=== PATIENT | male | born 1935 | race Caucasian/White ===

== ENCOUNTER → 2022-08-06 11:31 | Outpatient (CLI) | payer OTHER, SELFPAY ==
--- NOTE | ~2022-08-06 | MR_ITS ---
EXAMINATION: MR brain/brain stem wo/w con DATE: 08/06/2022 12:15 INDICATION: Seizures and cognitive and memory deficits. SLUMS score of 12. TECHNIQUE: Magnetic resonance imaging (MRI) of the brain and brainstem was performed without and with 17 mL Multihance intravenous contrast. Sequences included sagittal and axial T1-weighted SE, axial d iffusion-weighted FS SE, axial T2*-weighted GRE, axial T2-weighted FLAIR, and axial T2-weighted FSE. Postcontrast axial and coronal T1-weighted SE was obtained. Apparent diffusion coefficient (ADC) maps were created. COMPARISON: None. FINDINGS: There are no areas of restricted diffusion to suggest acute infarction. No intracranial hemorrhage or abnormal intracranial mass lesion. There are scattered areas of nonspecific increased T2-weighted si gnal intensity in the cerebral white matter, predominantly involving the deep and periventricular whi te matter. Symmetric prominence of the sulci, ventricles and basal cisterns with disproportionate alba tricular enlargement which could be related to moderate central predominant atrophy although differen tial would include garcia normal pressure hydrocephalus (NPH: clinical triad ataxia/gait disturbance, dementia, urinary incontinence). There are no abnormal extra-axial fluid collections. Flow voids are seen in the cerebral arteries on the T2-weighted sequences consistent with their expected patency. Ch anges of bilateral intraocular lens replacement. Mucosal thickening in the right maxillary and bilate ral ethmoid and frontal sinuses. There are no areas of abnormal enhancement on the post contrast imag es. IMPRESSION: 1. Enlargement of the sulci, subarachnoid spaces and disproportionately of the ventricles which could be related to either central predominant atrophy or normal pressure hydrocephalus. Correlate clinica lly for triad of ataxia/gait disturbance, dementia and urinary incontinence. 2. Moderate periventricular predominant mild scattered white matter T2 hyperintensity nonspecific mos t likely related to chronic small vessel ischemic disease. Reviewed, dictated and finalized at location A. IMPRESSION: 1. Enlargement of the sulci, subarachnoid spaces and disproportionately of the ventricles which could be related to either central predominant atrophy or norm al pressure hydrocephalus. Correlate clinically for triad of ataxia/gait distur bance, dementia and urinary incontinence. 2. Moderate periventricular predominant mild scattered white matter T2 hyperint ensity nonspecific most likely related to chronic small vessel ischemic disease .
== END ==
PROVIDERS: PCP Family Medicine; Visit Provider Family Medicine
DX: R56.9 Unspecified convulsions (principal); R93.0 Abnormal findings on diagnostic imaging of skull and head, not elsewhere classified
CPT/HCPCS: 70553; A9577

== ENCOUNTER 2023-03-27 08:17 | Inpatient (IN) | payer OTHER, SELFPAY ==
[2023-03-27] VITALS (10 sets, daily range): BP systolic 99–119; BP diastolic 58–95; PULSE 87–131; RESP 16–20; TEMP 36.8–38; O2SAT 94–99
--- NOTE | ~2023-03-27 | XR_ITS ---
EXAMINATION: XR chest 2V DATE: 03/27/2023 09:02 INDICATION: Weakness TECHNIQUE: AP and lateral views of the chest are obtained. COMPARISON: None available FINDINGS: There are minimal airspace opacities of the lung bases and left midlung zone. There are sma ll pleural effusions. No pneumothorax is identified. Cardiomegaly is noted. There are bridging osteop hytes at multiple levels in the spine, consistent with diffuse idiopathic skeletal hyperostosis (DISH ). There is moderate lumbar spondylosis. IMPRESSION: 1. Airspace opacities of the lung bases and left midlung zone, consistent with atelectasis versus pne umonia versus pulmonary edema. Reviewed, dictated and finalized at location B. IC TEACHER IMPRESSION: 1. Airspace opacities of the lung bases and left midlung zone, consistent with atelectasis versus pneumonia versus pulmonary edema.
--- NOTE | ~2023-03-27 | XR_ITS ---
Portable chest x-ray Comparison: 03/27/2023 Clinical History: Hemoptysis Findings: There are small bilateral pleural effusions, right greater than left, with worsening hazy bibasilar airspace disease. Cardiomediastinal silhouette is stable. Bones and soft tissues are unrem arkable. Impression: Moderate bibasilar pulmonary edema with small bilateral pleural effusions, right greater than left. C orrelate clinically for infection or pulmonary hemorrhage. Reviewed, dictated and finalized at location . HOT SUPERINTENDENT Impression: Moderate bibasilar pulmonary edema with small bilateral pleural effusions, righ t greater than left. Correlate clinically for infection or pulmonary hemorrhage .
--- NOTE | ~2023-03-27 | CT_ITS ---
EXAMINATION: CT brain wo con DATE: 03/27/2023 21:46 INDICATION: Altered mental status. TECHNIQUE: Computed tomography (CT) of the head was performed without intravenous contrast. The mA wa s adjusted according to patient size. Iterative reconstruction technique was employed. The dose-lengt h product was 681.00 mGy-cm. COMPARISON: Brain MRI 08/06/2022 FINDINGS: The ventricles are enlarged out of proportion to the size of the sulci. There are scattered areas of nonspecific increased T2-weighted signal intensity in the cerebral white matter. There is n o intracranial hemorrhage, acute infarction, or abnormal intracranial mass lesion. There are likely c hanges of ocular lens replacement surgeries. There is mucosal thickening in the paranasal sinuses. Th e mastoid air cells are normal. IMPRESSION: 1. Chronic enlargement of the ventricles. Correlate clinically for normal pressure hydrocephalus. 2. Stable moderate nonspecific cerebral white matter disease, which likely represents chronic small v essel ischemic disease. Reviewed, dictated and finalized at location E. OR SERVICE AIDE IMPRESSION: 1. Chronic enlargement of the ventricles. Correlate clinically for normal press ure hydrocephalus. 2. Stable moderate nonspecific cerebral white matter disease, which likely repr esents chronic small vessel ischemic disease.
[2023-03-27] MEDS: SODIUM CHLORIDE 0.9% IV 1,000 ML 999 ML IV CONT (08:45)
[2023-03-27 09:23] LABS: Basophils Percent Auto 0.5 % (0.2-1.2); Eosinophils Percent Auto 0.3 % (0-4.4); Hematocrit 40.3 % (42.0-52.0); Hemoglobin 12.9 g/dL (14.0-18.0); Immature Granulocyte Absolute 0.03 K/mm3 (0.00-0.031); Immature Granulocyte Percent A 0.3 % (0-0.5); Lymphocytes Absolute Auto 0.47 K/mm3 (0.9-3.2); Lymphocytes Percent Auto 5.4 % (18.3-44.2); Mean Corpuscular Hemoglobin 32.2 pg (26-34); Mean Corpuscular Volume 100.5 fl (80-100); Mean Platelet Volume 11.2 fl (7.4-10.4); Monocytes Absolute Auto 0.8 K/mm3 (0.1-0.6); Monocytes Percent Auto 9.1 % (2.6-8.5); Neutrophils Absolute Auto 7.4 K/mm3 (1.3-6.7); Neutrophils Percent Auto 84.4 % (45.5-73.1); Platelet Count Result 151 k/mm3 (150-375); Red Blood Count 4.01 M/mm3 (4.6-6.20); Red Cell Distribution Width 12.4 % (11.5-14.5); White Blood Count 8.8 K/mm3 (4.5-10.0)
[2023-03-27 09:32] LABS: Alanine Aminotransferase 20 U/L (6-50); Albumin Level 3.8 g/dL (3.5-5.1); Alkaline Phosphatase 66 U/L (38-126); Anion Gap 7 mmol/L (8-16); Aspartate Amino Transferase 23 U/L (17-59); Bilirubin,Total 1.2 mg/dL (0.2-1.3); Blood Urea Nitrogen 16 mg/dL (9-20); Calcium 8.3 mg/dL (8.4-10.2); Carbon Dioxide 22 mmol/L (22-30); Chloride 106 mmol/L (98-107); Estimated CRCL calculation 54 ml/min; Estimated Glomerular Filt Rate > 60; Glucose 96 mg/dL (65-110); Lipase 390 U/L (23-300); Potassium 3.3 mmol/L (3.4-5.0); Sodium 135 mmol/L (137-145)
[2023-03-27 09:59] LABS: Influenza A QL RT-PCR Negative (Negative); Influenza B QL RT-PCR Negative (Negative); SARS-CoV-2 RNA PCR Positive (Negative)
--- NOTE | 2023-03-27 10:05 | ECG_ITS ---
Measurements Intervals [employer] Rate: 94 P: CT: 0 QRS: 29 QRSD: 91 T: 1 QT: 323 QTc: 405 Interpretive Statements ATRIAL FIBRILLATION INCOMPLETE RIGHT BUNDLE BRANCH BLOCK BORDERLINE T WAVE ABNORMALITY- INFERIOR LEADS ABNORMAL ECG NO PREVIOUS ECG AVAILABLE FOR COMPARISON Electronically Signed On 03-27-2023 10:34:27 HOUSING MANAGEMENT REPRESENTATIVE by Igor Casillas D.O.
--- NOTE | 2023-03-27 11:07 | ED.GENADULT ---
HPI - General Adult General Chief complaint: Weakness Stated complaint: weak Time Seen by Provider: 03/27/23 08:37 History of Present Illness HPI narrative: Patient is an 87-year-old male who presents ER with weakness. Patient woke up from sleep today and was unable to stand up and move. Patient unable to provide history due to his dementia but reports he is in no pain. Patient has a low-grade temperature while he is here. No reports of foul-smelling urine or new cough or dyspnea from family. No known sick contacts. Related Data Home Medications Medication Instructions Recorded Confirmed alprazolam 0.25 mg tablet 0.25 mg PO TID PRN Anxiety 03/27/23 03/27/23 apixaban 5 mg tablet (Eliquis) 5 mg PO BID 03/27/23 03/27/23 atorvastatin 40 mg tablet 40 mg PO HS 03/27/23 03/27/23 donepezil 10 mg tablet 10 mg PO HS 03/27/23 03/27/23 folic acid 800 mcg tablet 0.8 mg PO DAILY 03/27/23 03/27/23 levetiracetam 500 mg tablet 500 mg PO BID 03/27/23 03/27/23 levothyroxine 100 mcg tablet 100 mcg PO DAILY 03/27/23 03/27/23 metoprolol succinate 25 mg 12.5 mg PO DAILY 03/27/23 03/27/23 tablet,extended release 24 hr vitamin B complex (B 1 tablet PO DAILY 03/27/23 03/27/23 Complex-Vitamin B12 tablet) Allergies Allergy/AdvReac Type Severity Reaction Status Date / Time No Known Allergies Allergy Verified 03/27/23 08:31 Review of Systems Review of Systems: ROS unobtainable: Yes unobtainable due to mental status [facility] Past Medical History Medical History (Updated 03/27/23 @ 17:49 by Jean-Pierre Hassan MD) A-fib Dementia Hypercholesterolemia Hypothyroidism Family History Family History (Updated 03/27/23 @ 14:42 by Jessie Braun RN) Other Unknown family medical history Social History Social History Smoking packs per day: 1 Smoking cigarettes per day: 20.0 Years smoked: 23 Smoking pack-years: 23.00 Smoking status: Former smoker Tobacco type: cigarettes Alcohol intake: current Drinks per week: 5 Substance use: never Other substance usage details: small glass of wine with sprite daily Spiritual care concerns: No Exam Narrative: GENERAL: Well-appearing, well-nourished, and in no acute distress. HEAD: Normocephalic, atraumatic. ENT: Mucous membranes moist. NECK: Supple. CHEST: Clear to auscultation. No respiratory distress. HEART: Regular rate and rhythm. Normal peripheral pulses. ABDOMEN: Soft, nontender, nondistended. EXTREMITIES: Normal range of motion. No edema. SKIN: Warm, dry, no rash. NEURO: Alert and oriented x2. PSYCH: Normal mood and affect. Course Course Emergency Course: Patient resting comfortably. Admit for observation since patient cannot get up and ambulate. Simms to be deconditioned due to his illness. Family educated. Excepted by the hospitalist service. Vital Signs Vital signs: Vital Signs Temperature 99.2 F 03/27/23 08:26 Pulse Rate 122 H 03/27/23 08:26 Respiratory Rate 20 03/27/23 08:26 Blood Pressure 99/63 L 03/27/23 08:26 Pulse Oximetry 94 03/27/23 08:26 Oxygen Delivery Room Air 03/27/23 08:26 Temperature 98.2 F 03/27/23 13:51 Pulse Rate 99 03/27/23 13:51 Respiratory Rate 20 03/27/23 13:51 Blood Pressure 119/72 03/27/23 13:51 Pulse Oximetry 97 03/27/23 13:51 Oxygen Delivery Room Air 03/27/23 13:50 Medical Decision Making Vital Signs Vital Signs: Vital Signs Temperature 99.2 F 03/27/23 08:26 Pulse Rate 122 H 03/27/23 08:26 Respiratory Rate 20 03/27/23 08:26 Blood Pressure 99/63 L 03/27/23 08:26 Pulse Oximetry 94 03/27/23 08:26 Oxygen Delivery Room Air 03/27/23 08:26 Temperature 98.2 F 03/27/23 13:51 Pulse Rate 99 03/27/23 13:51 Respiratory Rate 20 03/27/23 13:51 Blood Pressure 119/72 03/27/23 13:51 Pulse Oximetry 97 03/27/23 13:51 Oxygen Delivery Room Air 03/27/23 13:50 Lab Data 03/27/23 09:02 03/27/23 09:02
[2023-03-27 11:15] LABS: Appearance Urine Clear (Clear); Bilirubin Urine Negative (Negative); Blood Urine Negative (Negative); Color Urine Yellow (Yellow); Glucose Urine UA Negative (Negative); Ketones Urine Negative (Negative); Leukocyte Esterase Ur Negative LEU/UL (Negative); Nitrate Urine Negative (Negative); Protein Urine Negative (Negative); Specific Grav Ur 1.024 (1.001-1.035); pH Urine 6.5 (5.0-9.0)
[2023-03-27 11:18] LABS: Add Urine Microscopic? NO
[2023-03-27 11:57] LABS: NT Pro B Type Natriuretic Pept 3390 pg/mL (19.9-100)
--- NOTE | 2023-03-27 13:52 | ADMGEN ---
This patient, Jamaal Henley, was admitted to Medical Room 257-. Patient/family oriented to hospital policies and general routines including ID bracelet, bed and alarms, visiting hours, pain management, procedures, bathroom and other care routines, personal items, smoking policy, room service/diet, and visiting hours. Information on how to activate the Rapid Response Team has been discussed. Patient/Family are encouraged to report perceived risks to care and to ask questions if they do not understand what they are told or what they should do.
--- NOTE | 2023-03-27 15:56 | PM.IMHP ---
H&P: HPI History of Present Illness Date/Time: 03/27/23 15:56 Chief Complaint: Increased AMS and Generalized Weakness Narrative: 87 y/o M presents here with increased AMS, generalized weakness and +COVID test on (03/27) with PMH of dementia, hypothyroidism, HLD, former smoker, and anxiety. HPI obtained through ED provider report, family report, and chart review. Limited history from patient due to increased altered mental status. Per family, they noted a change in patient starting on Saturday. Having increased altered mental status and generalized weakness. Sought care today due to patient's new inability to stand, deviation from baseline. Patient has dementia at baseline and can participate in some activities. He lives at home with his who is his primary global professional. Normally alert and orientated to self and knows those around him, main memory difficulty is remembering to complete tasks/where things are/places of things like the bathroom. He is currently A/Ox0. ED workup revealed patient to be COVID positive with abnormalities seen on chest x-ray. Patient's only complaint is increased fatigue/feeling tired. Able to denied nausea, body aches, diarrhea, abdominal pain. Dry cough observed. Review of Systems Review of Systems: Limited due to patient condition, no family at bedside. All systems reviewed & are unremarkable except as noted in HPI and below PMFSH Past Medical History Medical History (Updated 03/27/23 @ 20:05 by Jessica Barriga APRN) A-fib Anxiety Dementia Hypercholesterolemia Hypothyroidism Surgical History Surgical History (Updated 03/27/23 @ 20:11 by Jessica Barriga APRN) No history of previous surgery Family History Family History (Updated 03/27/23 @ 20:11 by Jessica Barriga APRN) Other Heart disease Social History Social History Social History: Currently lives at home with his who is his primary global professional. Surrogate decision maker: Nighat Henley, spouse. Code Status: DNR Smoking packs per day: 1 Smoking cigarettes per day: 20.0 Years smoked: 23 Smoking pack-years: 23.00 Smoking status: Former smoker Tobacco type: cigarettes Alcohol intake: current Drinks per week: 5 Substance use: never Other substance usage details: small glass of wine with sprite daily Spiritual care concerns: No Meds Home Medications and Allergies Home Medications Medication Instructions Recorded Confirmed Type alprazolam 0.25 mg tablet 0.25 mg PO TID PRN Anxiety 03/27/23 03/27/23 History apixaban 5 mg tablet (Eliquis) 5 mg PO BID 03/27/23 03/27/23 History atorvastatin 40 mg tablet 40 mg PO HS 03/27/23 03/27/23 History donepezil 10 mg tablet 10 mg PO HS 03/27/23 03/27/23 History folic acid 800 mcg tablet 0.8 mg PO DAILY 03/27/23 03/27/23 History levetiracetam 500 mg tablet 500 mg PO BID 03/27/23 03/27/23 History levothyroxine 100 mcg tablet 100 mcg PO DAILY 03/27/23 03/27/23 History metoprolol succinate 25 mg 12.5 mg PO DAILY 03/27/23 03/27/23 History tablet,extended release 24 hr vitamin B complex (B 1 tablet PO DAILY 03/27/23 03/27/23 History Complex-Vitamin B12 tablet) Allergies Allergy/AdvReac Type Severity Reaction Status Date / Time No Known Allergies Allergy Verified 03/27/23 08:31 Vital Signs Vital Signs - 24 hr 03/27/23 08:26 03/27/23 08:30 03/27/23 11:28 Temperature 99.2 F Pulse Rate 122 H 131 H 119 H Respiratory Rate 20 16 Blood Pressure 99/63 L 109/95 H Pulse Oximetry 94 99 Oxygen Delivery Room Air 03/27/23 13:50 03/27/23 13:51 Temperature 98.2 F Pulse Rate 99 Respiratory Rate 20 Blood Pressure 119/72 Pulse Oximetry 97 Oxygen Delivery Room Air Exam Narrative: Resting in hospital bed, no visitors at bedside. Const: General: no acute distress and uncomfortable HENMT: Mouth: Yes dry mucous membranes Eyes: General: ap
[2023-03-27] MEDS: levETIRAcetam 500 MG TABLET PO (17:32)
[2023-03-27] MEDS: APIXABAN 5 MG TABLET PO (17:32)
[2023-03-27] MEDS: REMDESIVIR 200 MG/NS 250 ML 200 MG/250 ML BAG 250 MG IVPB (17:33)
[2023-03-27] MEDS: METOPROLOL TARTRATE INJ 5 MG/5 ML VIAL IV PUSH (18:12)
[2023-03-27 18:37] LABS: Alanine Aminotransferase 21 U/L (6-50); Aspartate Amino Transferase 27 U/L (17-59)
[2023-03-27 19:06] LABS: Thyroid Stimulating Hormone Reflex 0.139 uIU/mL (0.465-4.68)
[2023-03-27 19:44] LABS: Free T4 Free Thyroxine Reflex 2.19 ng/dL (0.78-2.19)
[2023-03-27] MEDS: ATORVASTATIN 40 MG TABLET PO (19:53)
[2023-03-27] MEDS: ALPRAZolam (*CRX) 0.25 MG TABLET PO (19:53)
[2023-03-27] MEDS: DONEPEZIL HCL 10 MG TABLET PO (19:53)
[2023-03-27] MEDS: ACETAMINOPHEN 325 MG TABLET 650 MG PO (19:53)
[2023-03-27 20:53] LABS: Total Triiodothyronine (T3) 0.99 NG/ML (0.97-1.69)
[2023-03-27] MEDS: POTASSIUM CHLORIDE INJ 40 MEQ in SODIUM CHLORIDE 0.9% IV 500 ML 130 MEQ IVPB (21:47)
[2023-03-28] VITALS (13 sets, daily range): BP systolic 114–172; BP diastolic 69–82; PULSE 74–130; RESP 16–20; TEMP 36.6–36.9; O2SAT 92–95
--- NOTE | 2023-03-28 | ECHO_ITS ---
Patient Info Name: Jamaal Henley Age: 87 years : 1935 Gender: Male Ht: 70 in Wt: 230 lbs BSA: 2.30 m2 HR: 85 bpm BP: 105 / 58 mmHg Heart Rhythm: Sinus Rhythm Technical Quality: Poor Exam Date: 03/28/2023 2:31 PM Exam Location: Echo Lab Patient Status: Inpatient Admit Date: 03/27/2023 Staff Ordering Physician: Jessica Barriga APRN Barrel Drum Cutter: Omayra Roger RDCS Attending Provider: Zion Glynn MD Referring Physician: Linus SANCHEZ; Exam Type: CA echo dop color flow w con Study Info Indications - elevated bnp Complete two-dimensional, color flow and Doppler transthoracic echocardiogram is performed. Reason for Poor Study: poor echocardiographic windows Summary 1. Technically difficult study with limited views. 2. Left ventricular chamber dimension is normal. 3. Left ventricular systolic function is mildly reduced, estimated at 45-50%. 4. Right ventricular systolic function is normal. 5. Left atrial chamber dimension is mildly enlarged. 6. Right atrial chamber dimension is mildly enlarged. 7. There is trace mitral valve regurgitation. 8. There is trace tricuspid valve regurgitation. 9. There is trivial anterior pericardial effusion. Left Ventricle Left ventricular chamber dimension is normal. Left ventricular systolic function is mildly reduced, estimated at 45-50%. There is no increased left ventricular wall thickness. Right Ventricle Right ventricular chamber dimension is normal. Right ventricular systolic function is normal. Left Atria Left atrial chamber dimension is mildly enlarged. Right Atria Right atrial chamber dimension is mildly enlarged. Atrial Septum Intact interatrial septum visualized by color flow imaging. Aortic Valve The aortic valve is not well visualized. There is no aortic valve stenosis. There is no aortic valve regurgitation. Pulmonic Valve The pulmonic valve is not well visualized. Mitral Valve There is trace mitral valve regurgitation. Tricuspid Valve There is trace tricuspid valve regurgitation. Pericardium/Pleural The pericardium appears epicardial fat pad. There is trivial anterior pericardial effusion. Inferior Vena Cava Dilated inferior vena cava with <50% collapse upon inspiration consistent with elevated right atrial pressure, 15 mmHg. Aorta The aortic root size at the sinus of Valsalva is normal. Left Ventricular Outflow Tract Name Value Normal LVOT 2D LVOT Diameter 1.97 cm LVOT Doppler LVOT Peak Gradient 2 mmHg LVOT Mean Gradient 1 mmHg LVOT VTI 16.66 cm LVOT VTI/AV VTI Ratio 0.83 LVOT Stroke Volume 50.86 ml LVOT CO 3.15 l/min LVOT CI 1.37 L/min/m2 Pulmonic Valve Name Value Normal RVOT Doppler RVOT Peak Gradient 1 mmHg P
[2023-03-28 05:15] LABS: Basophils Percent Auto 0.4 % (0.2-1.2); Hematocrit 41.7 % (42.0-52.0); Hemoglobin 13.4 g/dL (14.0-18.0); Immature Granulocyte Absolute 0.02 K/mm3 (0.00-0.031); Immature Granulocyte Percent A 0.3 % (0-0.5); Immature Platelet Fraction Pct 7.4 % (0.9-11.2); Lymphocytes Absolute Auto 0.98 K/mm3 (0.9-3.2); Lymphocytes Percent Auto 14.4 % (18.3-44.2); Mean Corpuscular HGB Conc 32.1 g/dl (32-36); Mean Corpuscular Hemoglobin 32.6 pg (26-34); Mean Corpuscular Volume 101.5 fl (80-100); Mean Platelet Volume 11.4 fl (7.4-10.4); Monocytes Absolute Auto 0.9 K/mm3 (0.1-0.6); Monocytes Percent Auto 12.8 % (2.6-8.5); Neutrophils Absolute Auto 4.9 K/mm3 (1.3-6.7); Neutrophils Percent Auto 72.1 % (45.5-73.1); Platelet Count Result 133 k/mm3 (150-375); Red Blood Count 4.11 M/mm3 (4.6-6.20); Red Cell Distribution Width 12.7 % (11.5-14.5); White Blood Count 6.8 K/mm3 (4.5-10.0)
[2023-03-28 05:19] LABS: Alanine Aminotransferase 21 U/L (6-50); Albumin Level 3.7 g/dL (3.5-5.1); Alkaline Phosphatase 63 U/L (38-126); Anion Gap 10 mmol/L (8-16); Aspartate Amino Transferase 35 U/L (17-59); Blood Urea Nitrogen 20 mg/dL (9-20); Calcium 8.2 mg/dL (8.4-10.2); Carbon Dioxide 23 mmol/L (22-30); Chloride 103 mmol/L (98-107); Estimated CRCL calculation 45 ml/min; Estimated Glomerular Filt Rate > 60; Glucose 89 mg/dL (65-110); Potassium 3.7 mmol/L (3.4-5.0); Sodium 136 mmol/L (137-145)
[2023-03-28] MEDS: LEVOTHYROXINE SODIUM 100 MCG TABLET PO (06:23)
[2023-03-28] MEDS: levETIRAcetam 500 MG TABLET PO ×2 (09:20→17:37)
[2023-03-28] MEDS: METOPROLOL SUCCINATE EXT REL 12.5 MG TABCR PO (09:20)
[2023-03-28] MEDS: VITAMIN B COMPLEX CAPSULE 1 CAP PO (09:20)
[2023-03-28] MEDS: APIXABAN 5 MG TABLET PO ×2 (09:20→17:37)
[2023-03-28] MEDS: FOLIC ACID 0.4 MG TABLET 0.8 MG PO (09:20)
--- NOTE | 2023-03-28 11:30 | PM.IMPN ---
Progress Note: A&P Assessment and Plan (1) Altered mental status: Code(s): R41.82 - Altered mental status, unspecified Status: Acute Assessment and Plan: DD: delirium secondary to infection, CVA, thyroid dysfunction, urinary tract infection, pneumonia, electrolyte abnormalities, worsening dementia, [place] EKG: showed A-Fib and incomplete RBBB, no ischemic pattern, and no previous for comparison. Hx of A-Fib. COVID+ UA: unremarkable TSH w/reflex pending Head CT w/o con - new dysarthria/increased alteration. 03/28: Patient more awake, conversant but drowsy/falls asleep (2) COVID-19: Code(s): U07.1 - COVID-19 Status: Acute Assessment and Plan: COVID+ on 03/27/23, s/s started on 03/24/23 tyl and zofran PRN fluid support with 1L NS mild hyponatremia, 135. given 1 L NS. trend. mild hypokalemia, 3.3 - give 40 meq IVPB. trend. mild elevation of lipase, 390. trend. neurochecks QShift fall/safety precautions monitor daily labs CXR: Airspace opacities of the lung bases and left midlung zone, consistent with atelectasis versus pneumonia versus pulmonary edema. No current hypoxia, consider adding nebs and steroids if patient deteriorates. (3) A-fib: Qualifiers: Atrial fibrillation type: longstanding persistent Qualified Code(s): I48.11 - Longstanding persistent atrial fibrillation Code(s): I48.91 - Unspecified atrial fibrillation Status: Acute Assessment and Plan: Heart rate increased to 120-130s, missed dose of metoprolol. Metoprolol 5 IV given. Continue home p.o. dose tomorrow. Cardiac monitoring Continue home Eliquis 03/28: Controlled rate on exam, afib on telemetry rate of 88 per my interpretation (4) Weakness: Code(s): R53.1 - Weakness Status: Acute Assessment and Plan: Likely secondary deconditioning due to COVID UA: Unremarkable Mild hypocalcemia, hyponatremia and hypokalemia. NS given and potassium repleted. Continue to monitor. Consider PT and OT eval and treat once patient condition improves to assess toleration of ADLs Due to abnormality on chest x-ray, BNP obtained. Elevated at 3390, echo ordered. None on file. TSH with reflex (5) Hypothyroidism: Code(s): E03.9 - Hypothyroidism, unspecified Status: Acute Assessment and Plan: TSH w/reflex pending, continue home levothyroxine Plan Continue remdesivir for a total of 3-5 days Consider supplemental oxygen and dexamethasone if saturations drop below and maintain below 92% on room air When patient more awake add PT and OT and Out of Bed for meals Diet: Heart healthy GI Prophylaxis: Not currently indicated DVT Prophylaxis: SCDs, on Eliquis Lines: pIV Code Status: DNR Time Spent With Patient Time with patient: Greater than 35 minutes Subjective Date/time seen: 03/28/23 10:30 Interval history: Patient developed altered mental status over the course of 4 days 1st with just some worsening confusion then difficulty remembering where the bathroom was then urinating places he should not including in the kitchen. Yesterday patient was unable to stand up so EMS was called. In the emergency department patient was diagnosed with COVID. No hypoxia. Patient was started on remdesivir due to neurologic symptoms with COVID. Patient at high risk for progression. This morning patient was more alert was able to eat with assistance from family. He would awaken to converse then fall back asleep. Review of Systems Review of Systems: All systems reviewed & are unremarkable except as noted in HPI and below Exam Narrative: GENERAL: Drowsy but will awaken and converse. Confused per baseline dementia. No acute distress noted. HEENT: Pupils are equally round and briskly reactive to light. Extraocular muscles are intact. Oral mucous membranes are moist without lesions. NECK: The patient has no noted JVD. No adenopathy is appreciated. CH
[2023-03-28] MEDS: PERFLUTREN LIPID MICROSPHERES 1.5 ML VIAL DILUTED TO 10 ML TOTAL VOLUME IV PUSH (15:00)
[2023-03-28] MEDS: DONEPEZIL HCL 10 MG TABLET PO (17:38)
[2023-03-28] MEDS: ALPRAZolam (*CRX) 0.25 MG TABLET PO (21:32)
[2023-03-28] MEDS: ATORVASTATIN 40 MG TABLET PO (21:32)
[2023-03-28] MEDS: REMDESIVIR 100 MG/NS 250 ML 100 MG/250 ML BAG 250 MG IVPB (21:33)
[2023-03-29] VITALS (15 sets, daily range): BP systolic 127–150; BP diastolic 74–94; PULSE 51–165; RESP 18–24; TEMP 36.2–36.8; O2SAT 92–96
[2023-03-29] MEDS: METOPROLOL TARTRATE INJ 5 MG/5 ML VIAL IV PUSH ×2 (02:01→07:41)
[2023-03-29] MEDS: LEVOTHYROXINE SODIUM 100 MCG TABLET PO (06:01)
[2023-03-29 06:29] LABS: Basophils Percent Auto 0.4 % (0.2-1.2); Eosinophils Percent Auto 0.1 % (0-4.4); Hematocrit 42.6 % (42.0-52.0); Hemoglobin 14.1 g/dL (14.0-18.0); Immature Granulocyte Absolute 0.02 K/mm3 (0.00-0.031); Immature Granulocyte Percent A 0.3 % (0-0.5); Immature Platelet Fraction Pct 8.8 % (0.9-11.2); Lymphocytes Absolute Auto 1.31 K/mm3 (0.9-3.2); Lymphocytes Percent Auto 17.9 % (18.3-44.2); Mean Corpuscular HGB Conc 33.1 g/dl (32-36); Mean Corpuscular Hemoglobin 32.2 pg (26-34); Mean Corpuscular Volume 97.3 fl (80-100); Mean Platelet Volume 11.2 fl (7.4-10.4); Monocytes Absolute Auto 0.9 K/mm3 (0.1-0.6); Monocytes Percent Auto 12.3 % (2.6-8.5); Neutrophils Absolute Auto 5.1 K/mm3 (1.3-6.7); Platelet Count Result 131 k/mm3 (150-375); Red Blood Count 4.38 M/mm3 (4.6-6.20); Red Cell Distribution Width 12.2 % (11.5-14.5); White Blood Count 7.3 K/mm3 (4.5-10.0)
[2023-03-29 06:34] LABS: INR 1.4; Prothrombin Time 17.8 Seconds (11.1-14.7)
[2023-03-29 06:39] LABS: Alanine Aminotransferase 22 U/L (6-50); Albumin Level 3.5 g/dL (3.5-5.1); Alkaline Phosphatase 65 U/L (38-126); Anion Gap 9 mmol/L (8-16); Aspartate Amino Transferase 42 U/L (17-59); Blood Urea Nitrogen 20 mg/dL (9-20); Calcium 8.2 mg/dL (8.4-10.2); Carbon Dioxide 23 mmol/L (22-30); Chloride 102 mmol/L (98-107); Estimated CRCL calculation 61 ml/min; Estimated Glomerular Filt Rate > 60; Glucose 88 mg/dL (65-110); Potassium 3.7 mmol/L (3.4-5.0); Sodium 134 mmol/L (137-145)
[2023-03-29] MEDS: METOPROLOL SUCCINATE EXT REL 12.5 MG TABCR PO (06:44)
[2023-03-29] MEDS: VITAMIN B COMPLEX CAPSULE 1 CAP PO (08:01)
[2023-03-29] MEDS: FOLIC ACID 0.4 MG TABLET 0.8 MG PO (08:01)
[2023-03-29] MEDS: levETIRAcetam 500 MG TABLET PO ×2 (08:01→18:00)
[2023-03-29] MEDS: APIXABAN 5 MG TABLET PO ×2 (08:01→18:00)
[2023-03-29] MEDS: dilTIAZem HCl INJ 25 MG/5 ML VIAL 20 MG IV PUSH (09:03)
--- NOTE | 2023-03-29 09:22 | P.PNIM_ITS ---
Progress Note: A&P Assessment and Plan (1) Altered mental status: Code(s): R41.82 - Altered mental status, unspecified Status: Acute Assessment and Plan: * DD: delirium secondary to infection, CVA, thyroid dysfunction, urinary tract infection, pneumonia, electrolyte abnormalities, worsening dementia, [place] * EKG: showed A-Fib and incomplete RBBB, no ischemic pattern, and no previous for comparison. Hx of A-Fib. * COVID+ * UA: unremarkable * TSH w/reflex pending * Head CT w/o con - new dysarthria/increased alteration. 03/28: Patient more awake, conversant but drowsy/falls asleep 03/29: Patient awake, answers questions, recognizes family. Family concerned he doesn't appear as sharp as yesterday while he seems at least as well as yesterday or even a bit improved. Yesterday patient was very drowsy and today he is very alert. (2) COVID-19: Code(s): U07.1 - COVID-19 Status: Acute Assessment and Plan: * COVID+ on 03/27/23, s/s started on 03/24/23 * tyl and zofran PRN * fluid support with 1L NS * mild hyponatremia, 135. given 1 L NS. trend. mild hypokalemia, 3.3 - give 40 meq IVPB. trend. * mild elevation of lipase, 390. trend. * neurochecks QShift * fall/safety precautions * monitor daily labs * CXR: Airspace opacities of the lung bases and left midlung zone, consistent with atelectasis versus pneumonia versus pulmonary edema. * No current hypoxia, consider adding nebs and steroids if patient deteriorates. (3) A-fib: Qualifiers: Atrial fibrillation type: longstanding persistent Qualified Code(s): I48.11 - Longstanding persistent atrial fibrillation Code(s): I48.91 - Unspecified atrial fibrillation Status: Acute Assessment and Plan: * Heart rate increased to 120-130s, missed dose of metoprolol. Metoprolol 5 IV given. Continue home p.o. dose tomorrow. * Cardiac monitoring * Continue home Eliquis 03/28: Controlled rate on exam, afib on telemetry rate of 88 per my interpretation 03/29: Afib with RVR overnight and worsened this morning despite use of IV metoprolol twice and early admin of daily low dose metoprolol. Cardizem 20 mg bolus improved HR considerably. Cardizem drip and transfer to IMU ordered. (4) Weakness: Code(s): R53.1 - Weakness Status: Acute Assessment and Plan: * Likely secondary deconditioning due to COVID * UA: Unremarkable * Mild hypocalcemia, hyponatremia and hypokalemia. NS given and potassium repleted. Continue to monitor. * Consider PT and OT eval and treat once patient condition improves to assess toleration of ADLs * Due to abnormality on chest x-ray, BNP obtained. Elevated at 3390, echo ordered. None on file. * TSH with reflex 03/29: Defer PT/OT due to worsening afib RVR (5) Hypothyroidism: Code(s): E03.9 - Hypothyroidism, unspecified Status: Acute Assessment and Plan: continue home levothyroxine Plan Continue remdesivir for a total of 3-5 days Consider supplemental oxygen and dexamethasone if saturations drop below and maintain below 92% on room air When patient more stable add PT and OT and Out of Bed for meals Cardizem drip and transfer to IMU due to RVR Diet: Heart healthy GI Prophylaxis: Not currently indicated DVT Prophylaxis: SCDs, on Eliquis Lines: pIV Code Status: DNR Time Spent With Patient Time with patient: Greater than 35 minutes Subjective Date/time seen: 03/29/23 09:22 Interval history: 03/28: Patient developed altered mental status over the course o
--- NOTE | 2023-03-29 09:22 | PM.IMPN ---
Progress Note: A&P Assessment and Plan (1) Altered mental status: Code(s): R41.82 - Altered mental status, unspecified Status: Acute Assessment and Plan: DD: delirium secondary to infection, CVA, thyroid dysfunction, urinary tract infection, pneumonia, electrolyte abnormalities, worsening dementia, [place] EKG: showed A-Fib and incomplete RBBB, no ischemic pattern, and no previous for comparison. Hx of A-Fib. COVID+ UA: unremarkable TSH w/reflex pending Head CT w/o con - new dysarthria/increased alteration. 03/28: Patient more awake, conversant but drowsy/falls asleep 03/29: Patient awake, answers questions, recognizes family. Family concerned he doesn't appear as sharp as yesterday while he seems at least as well as yesterday or even a bit improved. Yesterday patient was very drowsy and today he is very alert. (2) COVID-19: Code(s): U07.1 - COVID-19 Status: Acute Assessment and Plan: COVID+ on 03/27/23, s/s started on 03/24/23 tyl and zofran PRN fluid support with 1L NS mild hyponatremia, 135. given 1 L NS. trend. mild hypokalemia, 3.3 - give 40 meq IVPB. trend. mild elevation of lipase, 390. trend. neurochecks QShift fall/safety precautions monitor daily labs CXR: Airspace opacities of the lung bases and left midlung zone, consistent with atelectasis versus pneumonia versus pulmonary edema. No current hypoxia, consider adding nebs and steroids if patient deteriorates. (3) A-fib: Qualifiers: Atrial fibrillation type: longstanding persistent Qualified Code(s): I48.11 - Longstanding persistent atrial fibrillation Code(s): I48.91 - Unspecified atrial fibrillation Status: Acute Assessment and Plan: Heart rate increased to 120-130s, missed dose of metoprolol. Metoprolol 5 IV given. Continue home p.o. dose tomorrow. Cardiac monitoring Continue home Eliquis 03/28: Controlled rate on exam, afib on telemetry rate of 88 per my interpretation 03/29: Afib with RVR overnight and worsened this morning despite use of IV metoprolol twice and early admin of daily low dose metoprolol. Cardizem 20 mg bolus improved HR considerably. Cardizem drip and transfer to IMU ordered. (4) Weakness: Code(s): R53.1 - Weakness Status: Acute Assessment and Plan: Likely secondary deconditioning due to COVID UA: Unremarkable Mild hypocalcemia, hyponatremia and hypokalemia. NS given and potassium repleted. Continue to monitor. Consider PT and OT eval and treat once patient condition improves to assess toleration of ADLs Due to abnormality on chest x-ray, BNP obtained. Elevated at 3390, echo ordered. None on file. TSH with reflex 03/29: Defer PT/OT due to worsening afib RVR (5) Hypothyroidism: Code(s): E03.9 - Hypothyroidism, unspecified Status: Acute Assessment and Plan: continue home levothyroxine Plan Continue remdesivir for a total of 3-5 days Consider supplemental oxygen and dexamethasone if saturations drop below and maintain below 92% on room air When patient more stable add PT and OT and Out of Bed for meals Cardizem drip and transfer to IMU due to RVR Diet: Heart healthy GI Prophylaxis: Not currently indicated DVT Prophylaxis: SCDs, on Eliquis Lines: pIV Code Status: DNR Time Spent With Patient Time with patient: Greater than 35 minutes Subjective Date/time seen: 03/29/23 09:22 Interval history: 03/28: Patient developed altered mental status over the course of 4 days 1st with just some worsening confusion then difficulty remembering where the bathroom was then urinating places he should not including in the kitchen. Yesterday patient was unable to stand up so EMS was called. In the emergency department patient was diagnosed with COVID. No hypoxia. Patient was started on remdesivir due to neurologic symptoms with COVID. Patient at high risk for progression. This morning patient was more al
--- NOTE | 2023-03-29 11:39 | IVDEFINITY ---
Prior to administration of IV Definity the patient was educated on the risks and benefits of the imaging enhancing agent including potential adverse side effects. The patient verbalized understanding. Allergies were verified. No exclusion criteria were identified and at least one of the following inclusion criteria were met: 1) physician request, 2) patient technically difficult to image (per the [place] [employer] guidelines of two or more segments not discernable within the apical view), or 3) questionable left ventricular function. ?
[2023-03-29] MEDS: dilTIAZem HCL 60 MG TABLET PO (12:05)
[2023-03-29] MEDS: dilTIAZem 100 MG/100 ML 100 MG/100 ML BAG IV CONT (15:07)
[2023-03-29] MEDS: DONEPEZIL HCL 10 MG TABLET PO (18:00)
[2023-03-29] MEDS: ATORVASTATIN 40 MG TABLET PO (20:35)
[2023-03-29] MEDS: ALPRAZolam (*CRX) 0.25 MG TABLET PO (20:35)
[2023-03-29] MEDS: REMDESIVIR 100 MG/NS 250 ML 100 MG/250 ML BAG 250 MG IVPB (22:58)
[2023-03-30] VITALS (16 sets, daily range): BP systolic 118–136; BP diastolic 72–95; PULSE 86–126; RESP 18–24; TEMP 36.3–37.2; O2SAT 95–96
[2023-03-30 04:40] LABS: Basophils Percent Auto 0.4 % (0.2-1.2); Hematocrit 43.1 % (42.0-52.0); Hemoglobin 14.3 g/dL (14.0-18.0); Immature Granulocyte Absolute 0.02 K/mm3 (0.00-0.031); Immature Granulocyte Percent A 0.2 % (0-0.5); Immature Platelet Fraction Pct 9.1 % (0.9-11.2); Lymphocytes Absolute Auto 1.17 K/mm3 (0.9-3.2); Lymphocytes Percent Auto 14.4 % (18.3-44.2); Mean Corpuscular HGB Conc 33.2 g/dl (32-36); Mean Corpuscular Hemoglobin 31.7 pg (26-34); Mean Corpuscular Volume 95.6 fl (80-100); Mean Platelet Volume 11.1 fl (7.4-10.4); Monocytes Absolute Auto 0.9 K/mm3 (0.1-0.6); Monocytes Percent Auto 11.2 % (2.6-8.5); Neutrophils Percent Auto 73.8 % (45.5-73.1); Platelet Count Result 139 k/mm3 (150-375); Red Blood Count 4.51 M/mm3 (4.6-6.20); Red Cell Distribution Width 11.9 % (11.5-14.5); White Blood Count 8.1 K/mm3 (4.5-10.0)
[2023-03-30 04:51] LABS: Alanine Aminotransferase 23 U/L (6-50); Albumin Level 3.7 g/dL (3.5-5.1); Alkaline Phosphatase 63 U/L (38-126); Anion Gap 9 mmol/L (8-16); Aspartate Amino Transferase 44 U/L (17-59); Bilirubin,Total 1.2 mg/dL (0.2-1.3); Blood Urea Nitrogen 17 mg/dL (9-20); Calcium 8.2 mg/dL (8.4-10.2); Carbon Dioxide 24 mmol/L (22-30); Chloride 100 mmol/L (98-107); Estimated CRCL calculation 61 ml/min; Estimated Glomerular Filt Rate > 60; Glucose 105 mg/dL (65-110); Potassium 3.6 mmol/L (3.4-5.0); Sodium 133 mmol/L (137-145)
[2023-03-30] MEDS: dilTIAZem 100 MG/100 ML 100 MG/100 ML BAG IV CONT (09:18)
[2023-03-30] MEDS: FOLIC ACID 0.4 MG TABLET 0.8 MG PO (09:19)
[2023-03-30] MEDS: METOPROLOL SUCCINATE EXT REL 12.5 MG TABCR PO (09:19)
[2023-03-30] MEDS: VITAMIN B COMPLEX CAPSULE 1 CAP PO (09:19)
[2023-03-30] MEDS: APIXABAN 5 MG TABLET PO (09:19)
[2023-03-30] MEDS: levETIRAcetam 500 MG TABLET PO ×2 (09:19→18:09)
--- NOTE | 2023-03-30 12:43 | P.PNIM_ITS ---
Progress Note: A&P Assessment and Plan (1) Altered mental status: Code(s): R41.82 - Altered mental status, unspecified Status: Acute Assessment and Plan: * DD: delirium secondary to infection, CVA, thyroid dysfunction, urinary tract infection, pneumonia, electrolyte abnormalities, worsening dementia, [place] * EKG: showed A-Fib and incomplete RBBB, no ischemic pattern, and no previous for comparison. Hx of A-Fib. * COVID+ * UA: unremarkable * TSH w/reflex pending * Head CT w/o con - new dysarthria/increased alteration. 03/28: Patient more awake, conversant but drowsy/falls asleep 03/29: Patient awake, answers questions, recognizes family. Family concerned he doesn't appear as sharp as yesterday while he seems at least as well as yesterday or even a bit improved. Yesterday patient was very drowsy and today he is very alert. 03/30: Patient is more drowsy less willing to wake did not want to eat breakfast or lunch so far decreased oral intake fluids. (2) COVID-19: Code(s): U07.1 - COVID-19 Status: Acute Assessment and Plan: * COVID+ on 03/27/23, s/s started on 03/24/23 * tyl and zofran PRN * fluid support with 1L NS * mild hyponatremia, 135. given 1 L NS. trend. mild hypokalemia, 3.3 - give 40 meq IVPB. trend. * mild elevation of lipase, 390. trend. * neurochecks QShift * fall/safety precautions * monitor daily labs * CXR: Airspace opacities of the lung bases and left midlung zone, consistent wi th atelectasis versus pneumonia versus pulmonary edema. * No current hypoxia, consider adding nebs and steroids if patient deteriorates. * New development of diarrhea when rolling side to side 03/29 (3) A-fib: Qualifiers: Atrial fibrillation type: longstanding persistent Qualified Code(s): I48.11 - Longstanding persistent atrial fibrillation Code(s): I48.91 - Unspecified atrial fibrillation Status: Acute Assessment and Plan: * Heart rate increased to 120-130s, missed dose of metoprolol. Metoprolol 5 IV given. Continue home p.o. dose tomorrow. * Cardiac monitoring * Continue home Eliquis 03/28: Controlled rate on exam, afib on telemetry rate of 88 per my interpretation 03/29: Afib with RVR overnight and worsened this morning despite use of IV metoprolol twice and early admin of daily low dose metoprolol. Cardizem 20 mg bolus improved HR considerably. Cardizem drip and transfer to IMU ordered. 03/30: As noted above, heart rate controlled on 5 milligrams/hour while at rest patient gets tachycardic when awake and mobile. (4) Weakness: Code(s): R53.1 - Weakness Status: Acute Assessment and Plan: * Likely secondary deconditioning due to COVID * UA: Unremarkable * Mild hypocalcemia, hyponatremia and hypokalemia. NS given and potassium repleted. Continue to monitor. * Consider PT and OT eval and treat once patient condition improves to assess toleration of ADLs * Due to abnormality on chest x-ray, BNP obtained. Elevated at 3390, echo ordered. None on file. * TSH with reflex 03/29: Defer PT/OT due to worsening afib RVR 03/30: Was hoping to order PT and OT today however patient is drowsy/somnolent. (5) Hypothyroidism: Code(s): E03.9 - Hypothyroidism, unspecified Status: Acute Assessment and Plan: continue home levothyroxine Plan Continue remdesivir for a total of 3-5 days Consider supplemental oxygen and dexamethasone if saturations drop below and maintain below 92% on room air When patient more stable add PT and OT and Out of Bed for meals Deirdre vela
--- NOTE | 2023-03-30 12:43 | PM.IMPN ---
Progress Note: A&P Assessment and Plan (1) Altered mental status: Code(s): R41.82 - Altered mental status, unspecified Status: Acute Assessment and Plan: DD: delirium secondary to infection, CVA, thyroid dysfunction, urinary tract infection, pneumonia, electrolyte abnormalities, worsening dementia, [place] EKG: showed A-Fib and incomplete RBBB, no ischemic pattern, and no previous for comparison. Hx of A-Fib. COVID+ UA: unremarkable TSH w/reflex pending Head CT w/o con - new dysarthria/increased alteration. 03/28: Patient more awake, conversant but drowsy/falls asleep 03/29: Patient awake, answers questions, recognizes family. Family concerned he doesn't appear as sharp as yesterday while he seems at least as well as yesterday or even a bit improved. Yesterday patient was very drowsy and today he is very alert. 03/30: Patient is more drowsy less willing to wake did not want to eat breakfast or lunch so far decreased oral intake fluids. (2) COVID-19: Code(s): U07.1 - COVID-19 Status: Acute Assessment and Plan: COVID+ on 03/27/23, s/s started on 03/24/23 tyl and zofran PRN fluid support with 1L NS mild hyponatremia, 135. given 1 L NS. trend. mild hypokalemia, 3.3 - give 40 meq IVPB. trend. mild elevation of lipase, 390. trend. neurochecks QShift fall/safety precautions monitor daily labs CXR: Airspace opacities of the lung bases and left midlung zone, consistent with atelectasis versus pneumonia versus pulmonary edema. No current hypoxia, consider adding nebs and steroids if patient deteriorates. New development of diarrhea when rolling side to side 03/29 (3) A-fib: Qualifiers: Atrial fibrillation type: longstanding persistent Qualified Code(s): I48.11 - Longstanding persistent atrial fibrillation Code(s): I48.91 - Unspecified atrial fibrillation Status: Acute Assessment and Plan: Heart rate increased to 120-130s, missed dose of metoprolol. Metoprolol 5 IV given. Continue home p.o. dose tomorrow. Cardiac monitoring Continue home Eliquis 03/28: Controlled rate on exam, afib on telemetry rate of 88 per my interpretation 03/29: Afib with RVR overnight and worsened this morning despite use of IV metoprolol twice and early admin of daily low dose metoprolol. Cardizem 20 mg bolus improved HR considerably. Cardizem drip and transfer to IMU ordered. 03/30: As noted above, heart rate controlled on 5 milligrams/hour while at rest patient gets tachycardic when awake and mobile. (4) Weakness: Code(s): R53.1 - Weakness Status: Acute Assessment and Plan: Likely secondary deconditioning due to COVID UA: Unremarkable Mild hypocalcemia, hyponatremia and hypokalemia. NS given and potassium repleted. Continue to monitor. Consider PT and OT eval and treat once patient condition improves to assess toleration of ADLs Due to abnormality on chest x-ray, BNP obtained. Elevated at 3390, echo ordered. None on file. TSH with reflex 03/29: Defer PT/OT due to worsening afib RVR 03/30: Was hoping to order PT and OT today however patient is drowsy/somnolent. (5) Hypothyroidism: Code(s): E03.9 - Hypothyroidism, unspecified Status: Acute Assessment and Plan: continue home levothyroxine Plan Continue remdesivir for a total of 3-5 days Consider supplemental oxygen and dexamethasone if saturations drop below and maintain below 92% on room air When patient more stable add PT and OT and Out of Bed for meals Cardizem drip due to RVR Diet: Heart healthy GI Prophylaxis: Not currently indicated DVT Prophylaxis: SCDs, on Eliquis Lines: pIV Code Status: DNR Time Spent With Patient Time with patient: Greater than 35 minutes Subjective Date/time seen: 03/30/23 11:43 Interval history: 03/28: Patient developed altered mental status over the course of 4 days 1st with just some worsening confusion then difficulty
[2023-03-30] MEDS: DONEPEZIL HCL 10 MG TABLET PO (18:09)
[2023-03-30] MEDS: SODIUM CHLORIDE 0.9% IV 1,000 ML 60 ML IV CONT (18:09)
[2023-03-30] MEDS: REMDESIVIR 100 MG/NS 250 ML 100 MG/250 ML BAG 250 MG IVPB (22:09)
[2023-03-31] VITALS (16 sets, daily range): BP systolic 121–130; BP diastolic 68–75; PULSE 89–108; RESP 16–247; TEMP 36.3–36.9; O2SAT 94–97
[2023-03-31] MEDS: ALPRAZolam (*CRX) 0.25 MG TABLET PO ×2 (01:58→21:19)
[2023-03-31] MEDS: APIXABAN 5 MG TABLET PO ×3 (01:58→21:19)
[2023-03-31 05:26] LABS: Basophils Percent Auto 0.4 % (0.2-1.2); Eosinophils Absolute Auto 0.1 K/mm3 (0-0.3); Eosinophils Percent Auto 0.6 % (0-4.4); Hematocrit 40.8 % (42.0-52.0); Hemoglobin 13.7 g/dL (14.0-18.0); Immature Granulocyte Absolute 0.03 K/mm3 (0.00-0.031); Immature Granulocyte Percent A 0.4 % (0-0.5); Lymphocytes Absolute Auto 1.62 K/mm3 (0.9-3.2); Lymphocytes Percent Auto 19.4 % (18.3-44.2); Mean Corpuscular HGB Conc 33.6 g/dl (32-36); Mean Corpuscular Volume 95.3 fl (80-100); Mean Platelet Volume 11.2 fl (7.4-10.4); Monocytes Absolute Auto 0.9 K/mm3 (0.1-0.6); Monocytes Percent Auto 10.4 % (2.6-8.5); Neutrophils Absolute Auto 5.8 K/mm3 (1.3-6.7); Neutrophils Percent Auto 68.8 % (45.5-73.1); Platelet Count Result 142 k/mm3 (150-375); Red Blood Count 4.28 M/mm3 (4.6-6.20); White Blood Count 8.4 K/mm3 (4.5-10.0)
[2023-03-31 05:36] LABS: INR 1.7; Prothrombin Time 20.6 Seconds (11.1-14.7)
[2023-03-31 05:37] LABS: Alanine Aminotransferase 20 U/L (6-50); Albumin Level 2.9 g/dL (3.5-5.1); Alkaline Phosphatase 60 U/L (38-126); Aspartate Amino Transferase 37 U/L (17-59); Bilirubin,Total 1.3 mg/dL (0.2-1.3)
[2023-03-31 05:41] LABS: Alanine Aminotransferase 19 U/L (6-50); Albumin Level 3.2 g/dL (3.5-5.1); Alkaline Phosphatase 66 U/L (38-126); Anion Gap 7 mmol/L (8-16); Aspartate Amino Transferase 37 U/L (17-59); Bilirubin,Total 1.3 mg/dL (0.2-1.3); Blood Urea Nitrogen 15 mg/dL (9-20); Calcium 7.7 mg/dL (8.4-10.2); Carbon Dioxide 24 mmol/L (22-30); Chloride 103 mmol/L (98-107); Estimated CRCL calculation 69 ml/min; Estimated Glomerular Filt Rate > 60; Glucose 91 mg/dL (65-110); Potassium 3.3 mmol/L (3.4-5.0); Sodium 134 mmol/L (137-145)
[2023-03-31] MEDS: METOPROLOL SUCCINATE EXT REL 12.5 MG TABCR PO (08:03)
[2023-03-31] MEDS: VITAMIN B COMPLEX CAPSULE 1 CAP PO (08:03)
[2023-03-31] MEDS: dilTIAZem HCL CD 180 MG CAP.24HR PO (08:04)
[2023-03-31] MEDS: FOLIC ACID 0.4 MG TABLET 0.8 MG PO (08:04)
[2023-03-31] MEDS: levETIRAcetam 500 MG TABLET PO ×2 (08:04→17:54)
--- NOTE | 2023-03-31 11:18 | P.PNIM_ITS ---
Progress Note: A&P Assessment and Plan (1) Altered mental status: Code(s): R41.82 - Altered mental status, unspecified Status: Acute Assessment and Plan: * DD: delirium secondary to infection, CVA, thyroid dysfunction, urinary tract infection, pneumonia, electrolyte abnormalities, worsening dementia, [place] * EKG: showed A-Fib and incomplete RBBB, no ischemic pattern, and no previous for comparison. Hx of A-Fib. * COVID+ * UA: unremarkable * TSH w/reflex pending * Head CT w/o con - new dysarthria/increased alteration. 03/28: Patient more awake, conversant but drowsy/falls asleep 03/29: Patient awake, answers questions, recognizes family. Family concerned he doesn't appear as sharp as yesterday while he seems at least as well as yesterday or even a bit improved. Yesterday patient was very drowsy and today he is very alert. 03/30: Patient is more drowsy less willing to wake did not want to eat breakfast or lunch so far decreased oral intake fluids. 03/31: Awake alert improved mental status, best during hospitalization thus far, will order PT/OT (2) COVID-19: Code(s): U07.1 - COVID-19 Status: Acute Assessment and Plan: * COVID+ on 03/27/23, s/s started on 03/24/23 * tyl and zofran PRN * fluid support with 1L NS * mild hyponatremia, 135. given 1 L NS. trend. mild hypokalemia, 3.3 - give 40 meq IVPB. trend. * mild elevation of lipase, 390. trend. * neurochecks QShift * fall/safety precautions * monitor daily labs * CXR: Airspace opacities of the lung bases and left midlung zone, consistent with atelectasis versus pneumonia versus pulmonary edema. * No current hypoxia, consider adding nebs and steroids if patient deteriorates. * New development of diarrhea when rolling side to side 03/29 03/31: No significant symptoms noted (3) A-fib: Qualifiers: Atrial fibrillation type: longstanding persistent Qualified Code(s): I48.11 - Longstanding persistent atrial fibrillation Code(s): I48.91 - Unspecified atrial fibrillation Status: Acute Assessment and Plan: * Heart rate increased to 120-130s, missed dose of metoprolol. Metoprolol 5 IV given. Continue home p.o. dose tomorrow. * Cardiac monitoring * Continue home Eliquis 03/28: Controlled rate on exam, afib on telemetry rate of 88 per my interpretation 03/29: Afib with RVR overnight and worsened this morning despite use of IV metoprolol twice and early admin of daily low dose metoprolol. Cardizem 20 mg bolus improved HR considerably. Cardizem drip and transfer to IMU ordered. 03/30: As noted above, heart rate controlled on 5 milligrams/hour while at rest patient gets tachycardic when awake and mobile. 03/31: Oral Cardizem started, hope to remove drip today or increase dose oral tomorrow. (4) Weakness: Code(s): R53.1 - Weakness Status: Acute Assessment and Plan: * Likely secondary deconditioning due to COVID * UA: Unremarkable * Mild hypocalcemia, hyponatremia and hypokalemia. NS given and potassium repleted. Continue to monitor. * Consider PT and OT eval and treat once patient condition improves to assess toleration of ADLs * Due to abnormality on chest x-ray, BNP obtained. Elevated at 3390, echo ordered. None on file. * TSH with reflex 03/29: Defer PT/OT due to worsening afib RVR 03/30: Was hoping to order PT and OT today however patient is drowsy/somnolent. 03/31: PT/OT ordered (5) Hypothyroidism: Code(s): E03.9 - Hypothyroidism, unspecified Status: Acute Assessment and Plan: continue home levothyro
--- NOTE | 2023-03-31 11:18 | PM.IMPN ---
Progress Note: A&P Assessment and Plan (1) Altered mental status: Code(s): R41.82 - Altered mental status, unspecified Status: Acute Assessment and Plan: DD: delirium secondary to infection, CVA, thyroid dysfunction, urinary tract infection, pneumonia, electrolyte abnormalities, worsening dementia, [place] EKG: showed A-Fib and incomplete RBBB, no ischemic pattern, and no previous for comparison. Hx of A-Fib. COVID+ UA: unremarkable TSH w/reflex pending Head CT w/o con - new dysarthria/increased alteration. 03/28: Patient more awake, conversant but drowsy/falls asleep 03/29: Patient awake, answers questions, recognizes family. Family concerned he doesn't appear as sharp as yesterday while he seems at least as well as yesterday or even a bit improved. Yesterday patient was very drowsy and today he is very alert. 03/30: Patient is more drowsy less willing to wake did not want to eat breakfast or lunch so far decreased oral intake fluids. 03/31: Awake alert improved mental status, best during hospitalization thus far, will order PT/OT (2) COVID-19: Code(s): U07.1 - COVID-19 Status: Acute Assessment and Plan: COVID+ on 03/27/23, s/s started on 03/24/23 tyl and zofran PRN fluid support with 1L NS mild hyponatremia, 135. given 1 L NS. trend. mild hypokalemia, 3.3 - give 40 meq IVPB. trend. mild elevation of lipase, 390. trend. neurochecks QShift fall/safety precautions monitor daily labs CXR: Airspace opacities of the lung bases and left midlung zone, consistent with atelectasis versus pneumonia versus pulmonary edema. No current hypoxia, consider adding nebs and steroids if patient deteriorates. New development of diarrhea when rolling side to side 03/29 03/31: No significant symptoms noted (3) A-fib: Qualifiers: Atrial fibrillation type: longstanding persistent Qualified Code(s): I48.11 - Longstanding persistent atrial fibrillation Code(s): I48.91 - Unspecified atrial fibrillation Status: Acute Assessment and Plan: Heart rate increased to 120-130s, missed dose of metoprolol. Metoprolol 5 IV given. Continue home p.o. dose tomorrow. Cardiac monitoring Continue home Eliquis 03/28: Controlled rate on exam, afib on telemetry rate of 88 per my interpretation 03/29: Afib with RVR overnight and worsened this morning despite use of IV metoprolol twice and early admin of daily low dose metoprolol. Cardizem 20 mg bolus improved HR considerably. Cardizem drip and transfer to IMU ordered. 03/30: As noted above, heart rate controlled on 5 milligrams/hour while at rest patient gets tachycardic when awake and mobile. 03/31: Oral Cardizem started, hope to remove drip today or increase dose oral tomorrow. (4) Weakness: Code(s): R53.1 - Weakness Status: Acute Assessment and Plan: Likely secondary deconditioning due to COVID UA: Unremarkable Mild hypocalcemia, hyponatremia and hypokalemia. NS given and potassium repleted. Continue to monitor. Consider PT and OT eval and treat once patient condition improves to assess toleration of ADLs Due to abnormality on chest x-ray, BNP obtained. Elevated at 3390, echo ordered. None on file. TSH with reflex 03/29: Defer PT/OT due to worsening afib RVR 03/30: Was hoping to order PT and OT today however patient is drowsy/somnolent. 03/31: PT/OT ordered (5) Hypothyroidism: Code(s): E03.9 - Hypothyroidism, unspecified Status: Acute Assessment and Plan: continue home levothyroxine Plan PT/OT ordered. Out of bed for meals. Cardizem drip due to RVR, attempt to DC drip after oral Cardizem kicks in Diet: Heart healthy GI Prophylaxis: Not currently indicated DVT Prophylaxis: SCDs, on Eliquis Lines: pIV Code Status: DNR Time Spent With Patient Time with patient: 25 - 35 minutes Subjective Date/time seen: 03/31/23 11:18 Interval history: 03/28: Patient d
[2023-03-31] MEDS: SODIUM CHLORIDE 0.9% IV 1,000 ML 60 ML IV CONT (12:35)
--- NOTE | 2023-03-31 13:50 | ECG_ITS ---
Measurements Intervals [place] Rate: 123 P: TN: 0 QRS: 24 QRSD: 136 T: 37 QT: 311 QTc: 445 Interpretive Statements ATRIAL FIBRILLATION WITH RAPID VENTRICULAR RESPONSE RIGHT BUNDLE BRANCH BLOCK BASELINE ARTIFACT- I, II, III, AVR, AVL, AVF, V1-V6 ABNORMAL ECG COMPARED TO ECG 03/27/2023 10:11:25 HEART RATE HAS INCREASED RIGHT BUNDLE-BRANCH BLOCK NOW PRESENT Electronically Signed On 04-02-2023 6:17:35 [employer] by Igor Casillas D.O.
[2023-03-31] MEDS: DONEPEZIL HCL 10 MG TABLET PO (17:54)
[2023-03-31] MEDS: ATORVASTATIN 40 MG TABLET PO (21:19)
[2023-03-31] MEDS: dilTIAZem 100 MG/100 ML 100 MG/100 ML BAG IV CONT (21:19)
[2023-04-01] VITALS (15 sets, daily range): BP systolic 114–144; BP diastolic 57–82; PULSE 73–128; RESP 16–20; TEMP 36.2–36.6; O2SAT 93–99
[2023-04-01] MEDS: SODIUM CHLORIDE 0.9% IV 1,000 ML 60 ML IV CONT (05:11)
[2023-04-01 05:25] LABS: Basophils Percent Auto 0.3 % (0.2-1.2); Eosinophils Absolute Auto 0.2 K/mm3 (0-0.3); Eosinophils Percent Auto 3.1 % (0-4.4); Hematocrit 40.3 % (42.0-52.0); Hemoglobin 13.5 g/dL (14.0-18.0); Immature Granulocyte Absolute 0.03 K/mm3 (0.00-0.031); Immature Granulocyte Percent A 0.4 % (0-0.5); Lymphocytes Absolute Auto 1.42 K/mm3 (0.9-3.2); Lymphocytes Percent Auto 20.8 % (18.3-44.2); Mean Corpuscular HGB Conc 33.5 g/dl (32-36); Mean Corpuscular Hemoglobin 31.7 pg (26-34); Mean Corpuscular Volume 94.6 fl (80-100); Monocytes Absolute Auto 0.8 K/mm3 (0.1-0.6); Monocytes Percent Auto 11.3 % (2.6-8.5); Neutrophils Absolute Auto 4.4 K/mm3 (1.3-6.7); Neutrophils Percent Auto 64.1 % (45.5-73.1); Platelet Count Result 145 k/mm3 (150-375); Red Blood Count 4.26 M/mm3 (4.6-6.20); White Blood Count 6.8 K/mm3 (4.5-10.0)
[2023-04-01 05:51] LABS: Alanine Aminotransferase 22 U/L (6-50); Alkaline Phosphatase 67 U/L (38-126); Anion Gap 6 mmol/L (8-16); Aspartate Amino Transferase 33 U/L (17-59); Bilirubin,Total 1.3 mg/dL (0.2-1.3); Blood Urea Nitrogen 15 mg/dL (9-20); Calcium 7.8 mg/dL (8.4-10.2); Carbon Dioxide 26 mmol/L (22-30); Chloride 103 mmol/L (98-107); Estimated CRCL calculation 61 ml/min; Estimated Glomerular Filt Rate > 60; Glucose 96 mg/dL (65-110); Potassium 3.1 mmol/L (3.4-5.0); Sodium 135 mmol/L (137-145)
[2023-04-01] MEDS: LEVOTHYROXINE SODIUM 100 MCG TABLET PO (06:23)
[2023-04-01 07:51] LABS: Magnesium 1.9 mg/dL (1.6-2.3)
[2023-04-01] MEDS: VITAMIN B COMPLEX CAPSULE 1 CAP PO (09:59)
[2023-04-01] MEDS: METOPROLOL SUCCINATE EXT REL 12.5 MG TABCR PO (09:59)
[2023-04-01] MEDS: APIXABAN 5 MG TABLET PO ×2 (09:59→21:26)
[2023-04-01] MEDS: dilTIAZem HCL CD 240 MG CAP.24HR PO (09:59)
[2023-04-01] MEDS: POTASSIUM CHLORIDE 20 MEQ ER TABLET 60 MEQ PO (09:59)
[2023-04-01] MEDS: levETIRAcetam 500 MG TABLET PO ×2 (10:00→17:49)
[2023-04-01] MEDS: FOLIC ACID 0.4 MG TABLET 0.8 MG PO (10:00)
--- NOTE | 2023-04-01 11:40 | PM.IMPN ---
Progress Note: A&P Assessment and Plan (1) Altered mental status: Code(s): R41.82 - Altered mental status, unspecified Status: Acute Assessment and Plan: DD: delirium secondary to infection, CVA, thyroid dysfunction, urinary tract infection, pneumonia, electrolyte abnormalities, worsening dementia, [place] EKG: showed A-Fib and incomplete RBBB, no ischemic pattern, and no previous for comparison. Hx of A-Fib. COVID+ UA: unremarkable TSH w/reflex pending Head CT w/o con - new dysarthria/increased alteration. 03/28: Patient more awake, conversant but drowsy/falls asleep 03/29: Patient awake, answers questions, recognizes family. Family concerned he doesn't appear as sharp as yesterday while he seems at least as well as yesterday or even a bit improved. Yesterday patient was very drowsy and today he is very alert. 03/30: Patient is more drowsy less willing to wake did not want to eat breakfast or lunch so far decreased oral intake fluids. 03/31: Awake alert improved mental status, best during hospitalization thus far, will order PT/OT 04/01: awake alert improved mental status continues as yesterday. PT OT recommending SNF for therapy. (2) COVID-19: Code(s): U07.1 - COVID-19 Status: Acute Assessment and Plan: COVID+ on 03/27/23, s/s started on 03/24/23 tyl and zofran PRN fluid support with 1L NS mild hyponatremia, 135. given 1 L NS. trend. mild hypokalemia, 3.3 - give 40 meq IVPB. trend. mild elevation of lipase, 390. trend. neurochecks QShift fall/safety precautions monitor daily labs CXR: Airspace opacities of the lung bases and left midlung zone, consistent with atelectasis versus pneumonia versus pulmonary edema. No current hypoxia, consider adding nebs and steroids if patient deteriorates. New development of diarrhea when rolling side to side 03/29 03/31: No significant symptoms noted 04/01: Covid stable, neuro status improved (3) A-fib: Qualifiers: Atrial fibrillation type: longstanding persistent Qualified Code(s): I48.11 - Longstanding persistent atrial fibrillation Code(s): I48.91 - Unspecified atrial fibrillation Status: Acute Assessment and Plan: Heart rate increased to 120-130s, missed dose of metoprolol. Metoprolol 5 IV given. Continue home p.o. dose tomorrow. Cardiac monitoring Continue home Eliquis 03/28: Controlled rate on exam, afib on telemetry rate of 88 per my interpretation 03/29: Afib with RVR overnight and worsened this morning despite use of IV metoprolol twice and early admin of daily low dose metoprolol. Cardizem 20 mg bolus improved HR considerably. Cardizem drip and transfer to IMU ordered. 03/30: As noted above, heart rate controlled on 5 milligrams/hour while at rest patient gets tachycardic when awake and mobile. 03/31: Oral Cardizem started, hope to remove drip today or increase dose oral tomorrow. 04/01: Oral Cardizem increased to 240 mg Daily. Cardizem drip and IVF stopped, will plan to move to floor if he does not need to go back on Cardizem drip. (4) Weakness: Code(s): R53.1 - Weakness Status: Acute Assessment and Plan: Likely secondary deconditioning due to COVID UA: Unremarkable Mild hypocalcemia, hyponatremia and hypokalemia. NS given and potassium repleted. Continue to monitor. Consider PT and OT eval and treat once patient condition improves to assess toleration of ADLs Due to abnormality on chest x-ray, BNP obtained. Elevated at 3390, echo ordered. None on file. TSH with reflex 03/29: Defer PT/OT due to worsening afib RVR 03/30: Was hoping to order PT and OT today however patient is drowsy/somnolent. 03/31: PT/OT ordered 04/01: Improving, patient working with therapy, SNF disposition recommended. Son agrees with this plan. (5) Hypothyroidism: Code(s): E03.9 - Hypothyroidism, unspecified Status: Acute Assessment and Plan: continue home lev
[2023-04-01] MEDS: FUROSEMIDE INJ 40 MG/4 ML VIAL IV PUSH (14:53)
[2023-04-01] MEDS: DONEPEZIL HCL 10 MG TABLET PO (17:49)
[2023-04-01] MEDS: ATORVASTATIN 40 MG TABLET PO (21:26)
[2023-04-01] MEDS: ALPRAZolam (*CRX) 0.25 MG TABLET PO (21:28)
--- NOTE | 2023-04-01 22:36 | PC.NURSE ---
Patient exhibiting very disorganized behavior and continually pulling at lines/monitoring equipment, as well as attempting to get up out of bed. Ashlee [place] called, mitten restraints were ordered and placed.
[2023-04-02] VITALS (19 sets, daily range): BP systolic 100–139; BP diastolic 65–77; PULSE 76–136; RESP 12–20; TEMP 36.1–37; O2SAT 98–99
[2023-04-02 05:35] LABS: Basophils Percent Auto 0.4 % (0.2-1.2); Eosinophils Absolute Auto 0.4 K/mm3 (0-0.3); Eosinophils Percent Auto 5.2 % (0-4.4); Hematocrit 40.5 % (42.0-52.0); Hemoglobin 13.8 g/dL (14.0-18.0); Immature Granulocyte Absolute 0.03 K/mm3 (0.00-0.031); Immature Granulocyte Percent A 0.4 % (0-0.5); Lymphocytes Absolute Auto 1.61 K/mm3 (0.9-3.2); Lymphocytes Percent Auto 22.6 % (18.3-44.2); Mean Corpuscular HGB Conc 34.1 g/dl (32-36); Mean Corpuscular Hemoglobin 31.6 pg (26-34); Mean Corpuscular Volume 92.7 fl (80-100); Mean Platelet Volume 10.7 fl (7.4-10.4); Monocytes Absolute Auto 0.8 K/mm3 (0.1-0.6); Monocytes Percent Auto 11.4 % (2.6-8.5); Neutrophils Absolute Auto 4.3 K/mm3 (1.3-6.7); Platelet Count Result 173 k/mm3 (150-375); Red Blood Count 4.37 M/mm3 (4.6-6.20); Red Cell Distribution Width 11.9 % (11.5-14.5); White Blood Count 7.1 K/mm3 (4.5-10.0)
[2023-04-02 05:48] LABS: Alanine Aminotransferase 25 U/L (6-50); Albumin Level 3.4 g/dL (3.5-5.1); Alkaline Phosphatase 72 U/L (38-126); Anion Gap 9 mmol/L (8-16); Aspartate Amino Transferase 34 U/L (17-59); Bilirubin,Total 1.4 mg/dL (0.2-1.3); Blood Urea Nitrogen 16 mg/dL (9-20); Calcium 8.3 mg/dL (8.4-10.2); Carbon Dioxide 24 mmol/L (22-30); Chloride 103 mmol/L (98-107); Estimated CRCL calculation 61 ml/min; Estimated Glomerular Filt Rate > 60; Glucose 97 mg/dL (65-110); Potassium 3.6 mmol/L (3.4-5.0); Sodium 136 mmol/L (137-145)
[2023-04-02] MEDS: LEVOTHYROXINE SODIUM 100 MCG TABLET PO (06:17)
[2023-04-02] MEDS: VITAMIN B COMPLEX CAPSULE 1 CAP PO (09:31)
[2023-04-02] MEDS: dilTIAZem HCL CD 240 MG CAP.24HR PO (09:31)
[2023-04-02] MEDS: FOLIC ACID 0.4 MG TABLET 0.8 MG PO (09:32)
[2023-04-02] MEDS: METOPROLOL SUCCINATE EXT REL 12.5 MG TABCR PO (09:32)
[2023-04-02] MEDS: APIXABAN 5 MG TABLET PO ×2 (09:32→20:51)
[2023-04-02] MEDS: levETIRAcetam 500 MG TABLET PO ×2 (09:32→17:37)
[2023-04-02] MEDS: METOPROLOL TARTRATE 25 MG TABLET PO ×2 (11:59→20:51)
--- NOTE | 2023-04-02 13:53 | PM.IMPN ---
Progress Note: A&P Assessment and Plan (1) Altered mental status: Code(s): R41.82 - Altered mental status, unspecified Status: Acute Assessment and Plan: DD: delirium secondary to infection, CVA, thyroid dysfunction, urinary tract infection, pneumonia, electrolyte abnormalities, worsening dementia, [place] EKG: showed A-Fib and incomplete RBBB, no ischemic pattern, and no previous for comparison. Hx of A-Fib. COVID+ UA: unremarkable TSH w/reflex pending Head CT w/o con - new dysarthria/increased alteration. 03/28: Patient more awake, conversant but drowsy/falls asleep 03/29: Patient awake, answers questions, recognizes family. Family concerned he doesn't appear as sharp as yesterday while he seems at least as well as yesterday or even a bit improved. Yesterday patient was very drowsy and today he is very alert. 03/30: Patient is more drowsy less willing to wake did not want to eat breakfast or lunch so far decreased oral intake fluids. 03/31: Awake alert improved mental status, best during hospitalization thus far, will order PT/OT 04/01: awake alert improved mental status continues as yesterday. PT OT recommending SNF for therapy. 04/02: Patient drowsy, same as he appeared on 03/30. Should be approaching ability to come off isolation. (2) COVID-19: Code(s): U07.1 - COVID-19 Status: Acute Assessment and Plan: COVID+ on 03/27/23, s/s started on 03/24/23 tyl and zofran PRN fluid support with 1L NS mild hyponatremia, 135. given 1 L NS. trend. mild hypokalemia, 3.3 - give 40 meq IVPB. trend. mild elevation of lipase, 390. trend. neurochecks QShift fall/safety precautions monitor daily labs CXR: Airspace opacities of the lung bases and left midlung zone, consistent with atelectasis versus pneumonia versus pulmonary edema. No current hypoxia, consider adding nebs and steroids if patient deteriorates. New development of diarrhea when rolling side to side 03/29 03/31: No significant symptoms noted 04/01: Covid stable, neuro status improved 04/02: Droswy, confused seems like he was on 03/30 (3) A-fib: Qualifiers: Atrial fibrillation type: longstanding persistent Qualified Code(s): I48.11 - Longstanding persistent atrial fibrillation Code(s): I48.91 - Unspecified atrial fibrillation Status: Acute Assessment and Plan: Heart rate increased to 120-130s, missed dose of metoprolol. Metoprolol 5 IV given. Continue home p.o. dose tomorrow. Cardiac monitoring Continue home Eliquis 03/28: Controlled rate on exam, afib on telemetry rate of 88 per my interpretation 03/29: Afib with RVR overnight and worsened this morning despite use of IV metoprolol twice and early admin of daily low dose metoprolol. Cardizem 20 mg bolus improved HR considerably. Cardizem drip and transfer to IMU ordered. 03/30: As noted above, heart rate controlled on 5 milligrams/hour while at rest patient gets tachycardic when awake and mobile. 03/31: Oral Cardizem started, hope to remove drip today or increase dose oral tomorrow. 04/01: Oral Cardizem increased to 240 mg Daily. Cardizem drip and IVF stopped, will plan to move to floor if he does not need to go back on Cardizem drip. 04/02: AFib rapid ventricular rate this morning despite oral Cardizem and low-dose metoprolol. Increase metoprolol. Stable blood pressure. Patient likely to go back on Cardizem drip. Remain in IMU. (4) Weakness: Code(s): R53.1 - Weakness Status: Acute Assessment and Plan: Likely secondary deconditioning due to COVID UA: Unremarkable Mild hypocalcemia, hyponatremia and hypokalemia. NS given and potassium repleted. Continue to monitor. Consider PT and OT eval and treat once patient condition improves to assess toleration of ADLs Due to abnormality on chest x-ray, BNP obtained. Elevated at 3390, echo ordered. None on file. TSH with reflex 03/29: Defer PT/OT due to worseni
[2023-04-02] MEDS: DONEPEZIL HCL 10 MG TABLET PO (17:37)
[2023-04-02] MEDS: ARTIFICIAL TEARS OPHTH SOLN 15 ML BOTTLE 1 DROP EACH EYE (17:38)
[2023-04-02] MEDS: ATORVASTATIN 40 MG TABLET PO (20:51)
[2023-04-03] VITALS (16 sets, daily range): BP systolic 95–131; BP diastolic 58–88; PULSE 75–118; RESP 16–23; TEMP 36.4–36.9; O2SAT 97–99
[2023-04-03 05:32] LABS: Basophils Absolute Auto 0.1 K/mm3 (0.0-0.1); Basophils Percent Auto 0.7 % (0.2-1.2); Eosinophils Absolute Auto 0.7 K/mm3 (0-0.3); Eosinophils Percent Auto 7.9 % (0-4.4); Hematocrit 41.4 % (42.0-52.0); Immature Granulocyte Absolute 0.05 K/mm3 (0.00-0.031); Immature Granulocyte Percent A 0.6 % (0-0.5); Lymphocytes Percent Auto 20.8 % (18.3-44.2); Mean Corpuscular HGB Conc 33.8 g/dl (32-36); Mean Corpuscular Hemoglobin 31.9 pg (26-34); Mean Corpuscular Volume 94.3 fl (80-100); Mean Platelet Volume 10.6 fl (7.4-10.4); Monocytes Absolute Auto 0.7 K/mm3 (0.1-0.6); Monocytes Percent Auto 8.7 % (2.6-8.5); Neutrophils Percent Auto 61.3 % (45.5-73.1); Platelet Count Result 202 k/mm3 (150-375); Red Blood Count 4.39 M/mm3 (4.6-6.20); White Blood Count 8.2 K/mm3 (4.5-10.0)
[2023-04-03 05:57] LABS: Alanine Aminotransferase 27 U/L (6-50); Albumin Level 3.2 g/dL (3.5-5.1); Alkaline Phosphatase 74 U/L (38-126); Anion Gap 7 mmol/L (8-16); Aspartate Amino Transferase 42 U/L (17-59); Bilirubin,Total 1.3 mg/dL (0.2-1.3); Blood Urea Nitrogen 15 mg/dL (9-20); Calcium 8.1 mg/dL (8.4-10.2); Carbon Dioxide 24 mmol/L (22-30); Chloride 103 mmol/L (98-107); Estimated CRCL calculation 61 ml/min; Estimated Glomerular Filt Rate > 60; Glucose 91 mg/dL (65-110); Potassium 3.4 mmol/L (3.4-5.0); Sodium 134 mmol/L (137-145)
[2023-04-03] MEDS: APIXABAN 5 MG TABLET PO ×2 (08:58→20:50)
[2023-04-03] MEDS: METOPROLOL TARTRATE 25 MG TABLET PO ×2 (08:58→20:50)
[2023-04-03] MEDS: dilTIAZem HCL CD 240 MG CAP.24HR PO (08:58)
[2023-04-03] MEDS: levETIRAcetam 500 MG TABLET PO ×2 (08:58→17:27)
[2023-04-03] MEDS: VITAMIN B COMPLEX CAPSULE 1 CAP PO (08:58)
[2023-04-03] MEDS: FOLIC ACID 0.4 MG TABLET 0.8 MG PO (08:59)
--- NOTE | 2023-04-03 16:03 | PM.IMPN ---
Progress Note: A&P Assessment and Plan (1) Altered mental status: Code(s): R41.82 - Altered mental status, unspecified Status: Acute Assessment and Plan: DD: delirium secondary to infection, CVA, thyroid dysfunction, urinary tract infection, pneumonia, electrolyte abnormalities, worsening dementia, [place] EKG: showed A-Fib and incomplete RBBB, no ischemic pattern, and no previous for comparison. Hx of A-Fib. COVID+ UA: unremarkable TSH w/reflex pending Head CT w/o con - new dysarthria/increased alteration. 03/28: Patient more awake, conversant but drowsy/falls asleep 03/29: Patient awake, answers questions, recognizes family. Family concerned he doesn't appear as sharp as yesterday while he seems at least as well as yesterday or even a bit improved. Yesterday patient was very drowsy and today he is very alert. 03/30: Patient is more drowsy less willing to wake did not want to eat breakfast or lunch so far decreased oral intake fluids. 03/31: Awake alert improved mental status, best during hospitalization thus far, will order PT/OT 04/01: awake alert improved mental status continues as yesterday. PT OT recommending SNF for therapy. 04/02: Patient drowsy, same as he appeared on 03/30. Should be approaching ability to come off isolation. 04/03: Awake alert and oriented to person, place. Recognizes his son. According to his son Delroy his orientation today is baseline. (2) COVID-19: Code(s): U07.1 - COVID-19 Status: Acute Assessment and Plan: COVID+ on 03/27/23, s/s started on 03/24/23 tyl and zofran PRN mild hyponatremia, 135. given 1 L NS. trend. mild hypokalemia, 3.3 - give 40 meq IVPB. trend. mild elevation of lipase, 390. trend. neurochecks QShift fall/safety precautions monitor daily labs CXR: Airspace opacities of the lung bases and left midlung zone, consistent with atelectasis versus pneumonia versus pulmonary edema. No current hypoxia, consider adding nebs and steroids if patient deteriorates. New development of diarrhea when rolling side to side 03/29 03/31: No significant symptoms noted 04/01: Covid stable, neuro status improved 04/02: Droswy, confused seems like he was on 03/30 04/03: Continues with a cough but no other respiratory complaints. He is on room air, lung sounds are clear. (3) A-fib: Qualifiers: Atrial fibrillation type: longstanding persistent Qualified Code(s): I48.11 - Longstanding persistent atrial fibrillation Code(s): I48.91 - Unspecified atrial fibrillation Status: Acute Assessment and Plan: Heart rate increased to 120-130s, missed dose of metoprolol. Metoprolol 5 IV given. Continue home p.o. dose tomorrow. Cardiac monitoring Continue home Eliquis 03/28: Controlled rate on exam, afib on telemetry rate of 88 per my interpretation 03/29: Afib with RVR overnight and worsened this morning despite use of IV metoprolol twice and early admin of daily low dose metoprolol. Cardizem 20 mg bolus improved HR considerably. Cardizem drip and transfer to IMU ordered. 03/30: As noted above, heart rate controlled on 5 milligrams/hour while at rest patient gets tachycardic when awake and mobile. 03/31: Oral Cardizem started, hope to remove drip today or increase dose oral tomorrow. 04/01: Oral Cardizem increased to 240 mg Daily. Cardizem drip and IVF stopped, will plan to move to floor if he does not need to go back on Cardizem drip. 04/02: AFib rapid ventricular rate this morning despite oral Cardizem and low-dose metoprolol. Increase metoprolol. Stable blood pressure. Patient likely to go back on Cardizem drip. Remain in IMU. 04/03: Rate controlled with increase in metoprolol and blood pressure tolerated increase. Will transfer out of IMU today. (4) Weakness: Code(s): R53.1 - Weakness Status: Acute Assessment and Plan: Likely secondary deconditioning due to COVID UA: Unremarkable Mild hypo
[2023-04-03] MEDS: DONEPEZIL HCL 10 MG TABLET PO (17:27)
[2023-04-03] MEDS: ATORVASTATIN 40 MG TABLET PO (20:50)
[2023-04-03] MEDS: BENZONATATE 100 MG CAPSULE 200 MG PO (20:50)
[2023-04-04] VITALS (8 sets, daily range): BP systolic 105–133; BP diastolic 53–65; PULSE 69–121; RESP 18–20; TEMP 36.5–37.1; O2SAT 97–100
[2023-04-04] MEDS: LEVOTHYROXINE SODIUM 12.5 MCG TABLET PO (06:03)
[2023-04-04] MEDS: LEVOTHYROXINE SODIUM 75 MCG TABLET PO (06:03)
[2023-04-04 06:25] LABS: Basophils Percent Auto 0.5 % (0.2-1.2); Eosinophils Absolute Auto 0.6 K/mm3 (0-0.3); Eosinophils Percent Auto 7.1 % (0-4.4); Hemoglobin 13.4 g/dL (14.0-18.0); Immature Granulocyte Absolute 0.07 K/mm3 (0.00-0.031); Immature Granulocyte Percent A 0.9 % (0-0.5); Lymphocytes Absolute Auto 1.44 K/mm3 (0.9-3.2); Lymphocytes Percent Auto 17.9 % (18.3-44.2); Mean Corpuscular HGB Conc 33.5 g/dl (32-36); Mean Corpuscular Hemoglobin 32.1 pg (26-34); Mean Corpuscular Volume 95.9 fl (80-100); Mean Platelet Volume 10.8 fl (7.4-10.4); Monocytes Absolute Auto 0.8 K/mm3 (0.1-0.6); Monocytes Percent Auto 9.3 % (2.6-8.5); Neutrophils Absolute Auto 5.2 K/mm3 (1.3-6.7); Neutrophils Percent Auto 64.3 % (45.5-73.1); Platelet Count Result 221 k/mm3 (150-375); Red Blood Count 4.17 M/mm3 (4.6-6.20); Red Cell Distribution Width 12.3 % (11.5-14.5); White Blood Count 8.1 K/mm3 (4.5-10.0)
[2023-04-04 06:35] LABS: Alanine Aminotransferase 32 U/L (6-50); Albumin Level 3.3 g/dL (3.5-5.1); Alkaline Phosphatase 75 U/L (38-126); Anion Gap 9 mmol/L (8-16); Aspartate Amino Transferase 36 U/L (17-59); Bilirubin,Total 1.2 mg/dL (0.2-1.3); Blood Urea Nitrogen 15 mg/dL (9-20); Calcium 8.5 mg/dL (8.4-10.2); Carbon Dioxide 24 mmol/L (22-30); Chloride 105 mmol/L (98-107); Estimated CRCL calculation 61 ml/min; Estimated Glomerular Filt Rate > 60; Glucose 91 mg/dL (65-110); Lipase 205 U/L (23-300); Magnesium 1.8 mg/dL (1.6-2.3); Potassium 3.7 mmol/L (3.4-5.0); Sodium 138 mmol/L (137-145)
--- NOTE | 2023-04-04 08:51 | PM.IMPN ---
Progress Note: A&P Assessment and Plan (1) Altered mental status: Code(s): R41.82 - Altered mental status, unspecified Status: Acute Assessment and Plan: DD: delirium secondary to infection, CVA, thyroid dysfunction, urinary tract infection, pneumonia, electrolyte abnormalities, worsening dementia, [place] EKG: showed A-Fib and incomplete RBBB, no ischemic pattern, and no previous for comparison. Hx of A-Fib. COVID+ UA: unremarkable TSH w/reflex pending Head CT w/o con - new dysarthria/increased alteration. 03/28: Patient more awake, conversant but drowsy/falls asleep 03/29: Patient awake, answers questions, recognizes family. Family concerned he doesn't appear as sharp as yesterday while he seems at least as well as yesterday or even a bit improved. Yesterday patient was very drowsy and today he is very alert. 03/30: Patient is more drowsy less willing to wake did not want to eat breakfast or lunch so far decreased oral intake fluids. 03/31: Awake alert improved mental status, best during hospitalization thus far, will order PT/OT 04/01: awake alert improved mental status continues as yesterday. PT OT recommending SNF for therapy. 04/02: Patient drowsy, same as he appeared on 03/30. Should be approaching ability to come off isolation. 04/03: Awake alert and oriented to person, place. Recognizes his son. According to his son Delroy his orientation today is baseline. 04/04: Stable. No new concerns. (2) COVID-19: Code(s): U07.1 - COVID-19 Status: Acute Assessment and Plan: COVID+ on 03/27/23, s/s started on 03/24/23 tyl and zofran PRN mild hyponatremia, 135. given 1 L NS. trend. mild hypokalemia, 3.3 - give 40 meq IVPB. trend. mild elevation of lipase, 390. trend. neurochecks QShift fall/safety precautions monitor daily labs CXR: Airspace opacities of the lung bases and left midlung zone, consistent with atelectasis versus pneumonia versus pulmonary edema. No current hypoxia, consider adding nebs and steroids if patient deteriorates. New development of diarrhea when rolling side to side 03/29 03/31: No significant symptoms noted 04/01: Covid stable, neuro status improved 04/02: Droswy, confused seems like he was on 03/30 04/03: Continues with a cough but no other respiratory complaints. He is on room air, lung sounds are clear. Add tessalon madeline 04/04: No new complaints. (3) A-fib: Qualifiers: Atrial fibrillation type: longstanding persistent Qualified Code(s): I48.11 - Longstanding persistent atrial fibrillation Code(s): I48.91 - Unspecified atrial fibrillation Status: Acute Assessment and Plan: Heart rate increased to 120-130s, missed dose of metoprolol. Metoprolol 5 IV given. Continue home p.o. dose tomorrow. Cardiac monitoring Continue home Eliquis 03/28: Controlled rate on exam, afib on telemetry rate of 88 per my interpretation 03/29: Afib with RVR overnight and worsened this morning despite use of IV metoprolol twice and early admin of daily low dose metoprolol. Cardizem 20 mg bolus improved HR considerably. Cardizem drip and transfer to IMU ordered. 03/30: As noted above, heart rate controlled on 5 milligrams/hour while at rest patient gets tachycardic when awake and mobile. 03/31: Oral Cardizem started, hope to remove drip today or increase dose oral tomorrow. 04/01: Oral Cardizem increased to 240 mg Daily. Cardizem drip and IVF stopped, will plan to move to floor if he does not need to go back on Cardizem drip. 04/02: AFib rapid ventricular rate this morning despite oral Cardizem and low-dose metoprolol. Increase metoprolol. Stable blood pressure. Patient likely to go back on Cardizem drip. Remain in IMU. 04/03: Rate controlled with increase in metoprolol and blood pressure tolerated increase. Will transfer out of IMU today. 04/04: A-fib RVR rate in the 120's with activity but asymptomatic and promptly returns to baseline
[2023-04-04] MEDS: FOLIC ACID 0.4 MG TABLET 0.8 MG PO (09:13)
[2023-04-04] MEDS: APIXABAN 5 MG TABLET PO (09:13)
[2023-04-04] MEDS: BENZONATATE 100 MG CAPSULE 200 MG PO ×3 (09:13→17:08)
[2023-04-04] MEDS: METOPROLOL TARTRATE 25 MG TABLET PO (09:13)
[2023-04-04] MEDS: VITAMIN B COMPLEX CAPSULE 1 CAP PO (09:13)
[2023-04-04] MEDS: dilTIAZem HCL CD 240 MG CAP.24HR PO (09:13)
[2023-04-04] MEDS: levETIRAcetam 500 MG TABLET PO ×2 (09:49→17:09)
--- NOTE | 2023-04-04 15:20 | PCPTNOTE ---
Attempted to see patient for PT, however patient refused. Patient initially agreed to PT, then when attempting bed mobility patient refused to participate and seemed to get agitated. Patient's in room to encourage patient for participation, patient continued to refuse.
[2023-04-04] MEDS: DONEPEZIL HCL 10 MG TABLET PO (17:09)
--- NOTE | 2023-04-08 14:08 | PM.DS ---
DS: Admitting Diagnosis Discharge Date 04/04/23 Admitting Diagnosis AMS, Afib RVR DS: Discharge Diagnosis Discharge Diagnosis (1) Altered mental status: Code(s): R41.82 - Altered mental status, unspecified Status: Acute Assessment and Plan: DD: delirium secondary to infection, CVA, thyroid dysfunction, urinary tract infection, pneumonia, electrolyte abnormalities, worsening dementia, [place] EKG: showed A-Fib and incomplete RBBB, no ischemic pattern, and no previous for comparison. Hx of A-Fib. COVID+ UA: unremarkable TSH w/reflex pending Head CT w/o con - new dysarthria/increased alteration. 03/28: Patient more awake, conversant but drowsy/falls asleep 03/29: Patient awake, answers questions, recognizes family. Family concerned he doesn't appear as sharp as yesterday while he seems at least as well as yesterday or even a bit improved. Yesterday patient was very drowsy and today he is very alert. 03/30: Patient is more drowsy less willing to wake did not want to eat breakfast or lunch so far decreased oral intake fluids. 03/31: Awake alert improved mental status, best during hospitalization thus far, will order PT/OT 04/01: awake alert improved mental status continues as yesterday. PT OT recommending SNF for therapy. 04/02: Patient drowsy, same as he appeared on 03/30. Should be approaching ability to come off isolation. 04/03: Awake alert and oriented to person, place. Recognizes his son. According to his son Delroy his orientation today is baseline. 04/04: Stable. No new concerns. (2) COVID-19: Code(s): U07.1 - COVID-19 Status: Acute Assessment and Plan: COVID+ on 03/27/23, s/s started on 03/24/23 tyl and zofran PRN mild hyponatremia, 135. given 1 L NS. trend. mild hypokalemia, 3.3 - give 40 meq IVPB. trend. mild elevation of lipase, 390. trend. neurochecks QShift fall/safety precautions monitor daily labs CXR: Airspace opacities of the lung bases and left midlung zone, consistent with atelectasis versus pneumonia versus pulmonary edema. No current hypoxia, consider adding nebs and steroids if patient deteriorates. New development of diarrhea when rolling side to side 03/29 03/31: No significant symptoms noted 04/01: Covid stable, neuro status improved 04/02: Droswy, confused seems like he was on 03/30 04/03: Continues with a cough but no other respiratory complaints. He is on room air, lung sounds are clear. Add tessalon madeline 04/04: No new complaints. (3) A-fib: Qualifiers: Atrial fibrillation type: longstanding persistent Qualified Code(s): I48.11 - Longstanding persistent atrial fibrillation Code(s): I48.91 - Unspecified atrial fibrillation Status: Acute Assessment and Plan: Heart rate increased to 120-130s, missed dose of metoprolol. Metoprolol 5 IV given. Continue home p.o. dose tomorrow. Cardiac monitoring Continue home Eliquis 03/28: Controlled rate on exam, afib on telemetry rate of 88 per my interpretation 03/29: Afib with RVR overnight and worsened this morning despite use of IV metoprolol twice and early admin of daily low dose metoprolol. Cardizem 20 mg bolus improved HR considerably. Cardizem drip and transfer to IMU ordered. 03/30: As noted above, heart rate controlled on 5 milligrams/hour while at rest patient gets tachycardic when awake and mobile. 03/31: Oral Cardizem started, hope to remove drip today or increase dose oral tomorrow. 04/01: Oral Cardizem increased to 240 mg Daily. Cardizem drip and IVF stopped, will plan to move to floor if he does not need to go back on Cardizem drip. 04/02: AFib rapid ventricular rate this morning despite oral Cardizem and low-dose metoprolol. Increase metoprolol. Stable blood pressure. Patient likely to go back on Cardizem drip. Remain in IMU. 04/03: Rate controlled with increase in metoprolol and blood pressure tolerated increase. Will transfer out of IMU today. 1
== END 2023-04-04 17:45 | DRG 178 ==
LOC: ANHED 09:21 → ANH2MED 12:31 → ANHIMU 03-29 14:59 → ANH3MED 04-03 20:33
PROVIDERS: Nurse Practitioner; Student in an Organized Health Care Education/Training Program; Admitting Provider Internal Medicine; Emergency Provider Emergency Medicine; PCP Family Medicine; Visit Provider Nurse Practitioner Acute Care
DX: U07.1 COVID-19 (principal); E87.1 Hypo-osmolality and hyponatremia; I48.11 Longstanding persistent atrial fibrillation; E78.00 Pure hypercholesterolemia, unspecified; E03.9 Hypothyroidism, unspecified; F03.90 Unspecified dementia, unspecified severity, without behavioral disturbance, psychotic disturbance, mood disturbance, and anxiety; F41.9 Anxiety disorder, unspecified; R47.1 Dysarthria and anarthria; Z66 Do not resuscitate; Z87.891 Personal history of nicotine dependence
CPT/HCPCS: 36415; 70450; 71045; 71046; 80053; 80076; 81003; 82248; 83690; 83735; 83880; 84439; 84443; 84450; 84460; 84480; 85025; 85055; 85610; 87636; 93005; 96361; 96365; 96366; 96367; 96375; 96376; 97110; 97161; 97165; 97530; 97535; 99285; A9270; C8929; G0378; J0248; J1940; J3480; J7030; J7040; Q9957

== ENCOUNTER → 2023-05-30 08:30 | Outpatient (CLI) | payer OTHER, SELFPAY ==
--- NOTE | ~2023-05-30 | XR_ITS ---
XR hip BI 2V w AP pelvis DATE: 05/30/2023 09:07 INDICATION: Fall. TECHNIQUE: AP pelvis. AP and lateral views of each hip COMPARISON: None FINDINGS: The pubic symphysis and sacroiliac joints are intact. No pelvic fracture or bone destructio n is detected. Loose bodies are suggested at the hip joints, more numerous on the right. Hip joint spaces appear sym metric and relatively preserved. No fracture, dislocation, avascular necrosis or bone destruction of either hip is detected. Iliac and femoral arterial calcifications. IMPRESSION: Bilateral hip joint loose bodies are suggested No pelvic or hip fracture or dislocation Reviewed, dictated and finalized at location [facility]
== END ==
PROVIDERS: PCP Family Medicine; Visit Provider Family Medicine
DX: M25.551 Pain in right hip (principal); M25.552 Pain in left hip; M24.052 Loose body in left hip; M24.051 Loose body in right hip
CPT/HCPCS: 73521

== ENCOUNTER 2023-10-13 13:21 | Observation (INO) | payer OTHER, SELFPAY ==
[2023-10-13] VITALS (15 sets, daily range): BP systolic 83–162; BP diastolic 44–135; PULSE 68–93; RESP 8–20; TEMP 36.1–36.5; O2SAT 96–100
--- NOTE | ~2023-10-13 | US_ITS ---
US renal BI 10/13/2023 16:22 Procedure: Realtime transabdominal ultrasound of the kidneys and bladder. Indication: Acute renal insufficiency Comparison: No prior studies for comparison. 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 . No hydronephrosis. 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 Reviewed, dictated and finalized at location A. 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
--- NOTE | 2023-10-13 13:53 | ECG_ITS ---
SEE SCANNED COPY FOR CONFIRMED REPORT MTDD
[2023-10-13 14:01] LABS: Basophils Absolute Auto 0.1 K/mm3 (0.0-0.1); Basophils Percent Auto 0.7 % (0.2-1.2); Eosinophils Absolute Auto 0.3 K/mm3 (0-0.3); Eosinophils Percent Auto 2.8 % (0-4.4); Hematocrit 39.1 % (42.0-52.0); Hemoglobin 13.2 g/dL (14.0-18.0); Immature Granulocyte Absolute 0.02 K/mm3 (0.00-0.031); Immature Granulocyte Percent A 0.2 % (0-0.5); Lymphocytes Absolute Auto 1.96 K/mm3 (0.9-3.2); Lymphocytes Percent Auto 22.2 % (18.3-44.2); Mean Corpuscular HGB Conc 33.8 g/dl (32-36); Mean Corpuscular Hemoglobin 32.3 pg (26-34); Mean Corpuscular Volume 95.6 fl (80-100); Mean Platelet Volume 10.9 fl (7.4-10.4); Monocytes Absolute Auto 0.8 K/mm3 (0.1-0.6); Monocytes Percent Auto 9.3 % (2.6-8.5); Neutrophils Absolute Auto 5.7 K/mm3 (1.3-6.7); Neutrophils Percent Auto 64.8 % (45.5-73.1); Platelet Count Result 205 k/mm3 (150-375); Red Blood Count 4.09 M/mm3 (4.6-6.20); Red Cell Distribution Width 12.4 % (11.5-14.5); White Blood Count 8.8 K/mm3 (4.5-10.0)
[2023-10-13 14:11] LABS: Alanine Aminotransferase 22 U/L (6-50); Albumin Level 4.1 g/dL (3.5-5.1); Alkaline Phosphatase 69 U/L (38-126); Anion Gap 9 mmol/L (4-12); Aspartate Amino Transferase 24 U/L (17-59); Bilirubin,Total 0.8 mg/dL (0.2-1.3); Blood Urea Nitrogen 38 mg/dL (9-20); Calcium 9.1 mg/dL (8.4-10.2); Carbon Dioxide 22 mmol/L (22-30); Chloride 105 mmol/L (98-107); Estimated CRCL calculation 27 ml/min; Estimated Glomerular Filt Rate 34; Glucose 82 mg/dL (65-110); Potassium 4.2 mmol/L (3.4-5.0); Sodium 136 mmol/L (137-145)
--- NOTE | 2023-10-13 15:32 | PM.IMHP ---
H&P: HPI History of Present Illness Date/Time: 10/13/23 16:00 Chief Complaint: Low blood pressure. Narrative: This is an 88-year-old male with dementia, seizure, hypertension, atrial fibrillation on chronic anticoagulation, hyperlipidemia, and hypothyroidism who presented to the emergency department for evaluation of low blood pressure. The patient's provides the majority the following history given his dementia. Last week he was taken off of his antihypertensive due to low blood pressures. This morning checked his blood pressure and reports that it was lower than usual and she brought him in for evaluation as he has been more fatigued the last several days. There have been no reports of recent illnesses and the patient has not had any complaints. At the time my evaluation he feels fine and denies headache, cold and flu symptoms, chest pain, shortness of breath, abdominal pain, nausea, vomiting, diarrhea, and dysuria. In the ED: Blood pressure was 90/49 on arrival. The remainder of his vital signs were stable. Labs were significant for hemoglobin of 13.2, sodium 136, BUN 38, creatinine 1.90 (baseline creatinine is around 0.80). He was started on IV fluids and is being admitted in this setting for further workup of acute kidney injury. Review of Systems Review of Systems: 12 systems were reviewed and are negative except for as per HPI. [facility] Past Medical History Medical History (Updated 10/13/23 @ 21:52 by Ashlee Fritz PA-C) Anxiety Atrial fibrillation Chronic anticoagulation Dementia Hypercholesterolemia Hypothyroidism Seizure (2009) Surgical History Surgical History (Updated 10/13/23 @ 21:52 by Ashlee Fritz PA-C) History of cataract extraction Family History Family History Father No problems noted. Mother No problems noted. Other Heart disease Social History Social History (Updated 10/13/23 @ 21:53 by Ashlee Fritz PA-C) Social History: Surrogate decision maker: Nighat Henley, spouse. Code Status: Smoking packs per day: 1 Smoking cigarettes per day: 20.0 Years smoked: 23 Smoking pack-years: 23.00 Smoking status: Never smoker Tobacco type: cigarettes Second hand tobacco smoke exposure: No Alcohol intake: never Drinks per week: 5 Substance use: never Substance use type: does not use Other substance usage details: small glass of wine with sprite daily Do You Feel Safe in your Home?: Yes Lack of Transportation: No Lack of Food: Never True Current Housing: I Have Housing Concerned About Future Housing: No Difficulty Paying Gas/Electric Bills: No Difficulty Paying for Meds: No Currently Unemployed: No Education: Don't Know Difficulty w/ Childcare or Family Care: No Additional living arrangements comments: Lives with spouse. Additional occupation/education comments: Retired from [employer]. Spiritual care concerns: No Meds Home Medications and Allergies Home Medications Medication Instructions Recorded Confirmed Type levetiracetam 500 mg tablet 500 mg PO BID #180 tabs 10/04/22 10/13/23 Rx folic acid 800 mcg tablet 0.8 mg PO DAILY 03/27/23 10/13/23 History vitamin B complex (B 1 tablet PO DAILY 03/27/23 10/13/23 History Complex-Vitamin B12 tablet) diltiazem HCl 240 mg 240 mg PO QAM #90 caps 05/03/23 10/13/23 Rx capsule,extended release 24 hr, controlled levothyroxine 75 mcg tablet 75 mcg PO DAILY #90 tabs 05/31/23 10/13/23 Rx (Synthroid) apixaban 5 mg tablet (Eliquis) 5 mg PO BID #180 tabs 08/13/23 10/13/23 Rx atorvastatin 40 mg tablet 40 mg PO DAILY #90 tabs 08/26/23 10/13/23 Rx cholecalciferol (vitamin D3) 125 125 mcg PO DAILY #90 caps 09/16/23 10/13/23 Rx mcg (5,000 unit) capsule donepezil 10 mg tablet 10 mg PO DAILY #90 tabs 09/19/23 10/13/23 Rx alprazolam 0.25 mg tablet 0.25 mg PO QHS PRN an
[2023-10-13] MEDS: SODIUM CHLORIDE 0.9% IV 1,000 ML 150 ML IV CONT (15:45)
--- NOTE | 2023-10-13 16:06 | ED.GENADULT ---
HPI - General Adult General Chief complaint: Recheck/Abnormal Lab/Rx Stated complaint: low BP Time Seen by Provider: 10/13/23 14:09 History of Present Illness HPI narrative: Patient is an 88-year-old male who presents to the emergency department this afternoon complaining of a low blood pressure. Patient states that while a blood pressure that was obtained at home had a systolic blood pressure of 60. In the emergency department my patient's blood pressure was noted to be 90/49 and repeat blood pressure 96/74 mapping above 70. Patient denies any symptoms whatsoever, denies any chest pain, shortness of breath, any lightheadedness, dizziness, nausea, vomiting, abdominal pain, dysuria or hematuria, lower back pain. Denies any fevers or chills or any recent URI symptoms. No additional symptoms or concerns at this time. Related Data Home Medications Medication Instructions Recorded Confirmed metoprolol succinate 25 mg 25 mg PO DAILY 06/20/22 05/23/23 tablet,extended release 24 hr folic acid 800 mcg tablet 0.8 mg PO DAILY 03/27/23 05/23/23 vitamin B complex (B 1 tablet PO DAILY 03/27/23 05/23/23 Complex-Vitamin B12 tablet) Allergies Allergy/AdvReac Type Severity Reaction Status Date / Time No Known Allergies Allergy Verified 07/15/23 09:54 Review of Systems Review of Systems: All systems are reviewed and are negative unless stated otherwise in the HPI. COUNTS INCLUDE 234 BEDS AT THE [facility] Past Medical History Medical History Anxiety Atrial fibrillation Chronic anticoagulation Dementia Hypercholesterolemia Hypothyroidism Memory loss (06/20/21) Seizure (2009) Surgical History Surgical History No history of previous surgery Family History Family History Father No problems noted. Mother No problems noted. Other Heart disease Social History Social History Social History: Surrogate decision maker: Nighat Henley, spouse. Code Status: Smoking packs per day: 1 Smoking cigarettes per day: 20.0 Years smoked: 23 Smoking pack-years: 23.00 Smoking status: Former smoker Tobacco type: cigarettes Second hand tobacco smoke exposure: No Alcohol intake: current Drinks per week: 5 Substance use: never Other substance usage details: small glass of wine with sprite daily Lack of Transportation: No Lack of Food: Never True Current Housing: I Have Housing Concerned About Future Housing: No Difficulty Paying Gas/Electric Bills: No Difficulty Paying for Meds: No Currently Unemployed: No Education: Trade/Vocational Certificate Difficulty w/ Childcare or Family Care: No Additional living arrangements comments: Lives with spouse. Spiritual care concerns: No Exam Narrative: General: Alert, awake, afebrile, in no acute distress. HEENT: PERRL, no rhinorrhea, no post nasal drip, oropharynx clear. Cardiovascular: Regular rate and rhythm, no murmurs, rubs or gallops, no peripheral edema. Respiratory: Clear to auscultation bilaterally, no tachypnea, no wheezing, no rhonchi, no rubs, no respiratory distress. Abdomen: Soft, nontender, nondistended, no rebound, no guarding, no peritoneal signs. Musculoskeletal: No joint swelling or deformity, normal muscle tone. Skin: No rashes or petechia, no signs of infection. Neurological: Alert and oriented to person, place, and time. Follows all commands. No focal deficits, speech is clear and fluent. Course Vital Signs Vital signs: Vital Signs Temperature 97.6 F 10/13/23 13:25 Pulse Rate 93 10/13/23 13:25 Respiratory Rate 16 10/13/23 13:25 Blood Pressure 90/49 L 10/13/23 13:25 Pulse Oximetry 100 10/13/23 13:25 Oxygen Delivery Room Air 10/13/23 13:25 Temperature 97.6 F 0
[2023-10-13 16:27] LABS: Appearance Urine Clear (Clear); Bilirubin Urine Negative (Negative); Blood Urine Negative (Negative); Color Urine Yellow (Yellow); Glucose Urine UA Negative (Negative); Ketones Urine Trace mg/dL (Negative); Leukocyte Esterase Ur Negative LEU/UL (Negative); Nitrate Urine Negative (Negative); Protein Urine Negative (Negative); Specific Grav Ur 1.019 (1.001-1.035); Urobilinogen Urine 0.2 mg/dL (<2.0)
[2023-10-13 16:34] LABS: Add Urine Microscopic? NO
--- NOTE | 2023-10-13 17:12 | ADMGEN ---
This patient, Jamaal Henley, was admitted to [address] [place] [address] Room 300-01. Patient/family oriented to hospital policies and general routines including ID bracelet, bed and alarms, visiting hours, pain management, procedures, bathroom and other care routines, personal items, smoking policy, room service/diet, and visiting hours. Information on how to activate the Rapid Response Team has been discussed. Patient/Family are encouraged to report perceived risks to care and to ask questions if they do not understand what they are told or what they should do.
[2023-10-13] MEDS: SODIUM CHLORIDE 0.9% IV 1,000 ML 999 ML IV CONT (19:24)
[2023-10-13] MEDS: SODIUM CHLORIDE 0.9% IV 1,000 ML 100 ML IV CONT (20:35)
[2023-10-13] MEDS: APIXABAN 5 MG TABLET PO (20:36)
[2023-10-13] MEDS: levETIRAcetam 500 MG TABLET PO (20:36)
[2023-10-14] VITALS (10 sets, daily range): BP systolic 106–149; BP diastolic 50–83; PULSE 56–108; RESP 14–20; TEMP 36–36.9; O2SAT 96–100
[2023-10-14] MEDS: LEVOTHYROXINE SODIUM 75 MCG TABLET PO (05:57)
[2023-10-14] MEDS: SODIUM CHLORIDE 0.9% IV 1,000 ML 100 ML IV CONT ×2 (05:57→18:26)
[2023-10-14 06:46] LABS: Basophils Absolute Auto 0.1 K/mm3 (0.0-0.1); Basophils Percent Auto 0.5 % (0.2-1.2); Eosinophils Absolute Auto 0.2 K/mm3 (0-0.3); Eosinophils Percent Auto 1.6 % (0-4.4); Hematocrit 38.1 % (42.0-52.0); Hemoglobin 12.7 g/dL (14.0-18.0); Immature Granulocyte Absolute 0.04 K/mm3 (0.00-0.031); Immature Granulocyte Percent A 0.4 % (0-0.5); Lymphocytes Absolute Auto 1.39 K/mm3 (0.9-3.2); Lymphocytes Percent Auto 14.3 % (18.3-44.2); Mean Corpuscular HGB Conc 33.3 g/dl (32-36); Mean Corpuscular Hemoglobin 32.2 pg (26-34); Mean Corpuscular Volume 96.7 fl (80-100); Mean Platelet Volume 11.1 fl (7.4-10.4); Monocytes Absolute Auto 0.7 K/mm3 (0.1-0.6); Monocytes Percent Auto 7.3 % (2.6-8.5); Neutrophils Absolute Auto 7.4 K/mm3 (1.3-6.7); Neutrophils Percent Auto 75.9 % (45.5-73.1); Platelet Count Result 195 k/mm3 (150-375); Red Blood Count 3.94 M/mm3 (4.6-6.20); Red Cell Distribution Width 12.2 % (11.5-14.5); White Blood Count 9.7 K/mm3 (4.5-10.0)
[2023-10-14 07:18] LABS: Anion Gap 7 mmol/L (4-12); Blood Urea Nitrogen 28 mg/dL (9-20); Calcium 8.2 mg/dL (8.4-10.2); Carbon Dioxide 20 mmol/L (22-30); Chloride 111 mmol/L (98-107); Estimated CRCL calculation 42 ml/min; Estimated Glomerular Filt Rate 57; Glucose 87 mg/dL (65-110); Magnesium 1.9 mg/dL (1.6-2.3); Potassium 3.7 mmol/L (3.4-5.0); Sodium 138 mmol/L (137-145)
--- NOTE | 2023-10-14 07:21 | PM.IMPN ---
Progress Note: A&P Assessment and Plan (1) Acute kidney injury: Code(s): N17.9 - Acute kidney failure, unspecified Status: Acute Assessment and Plan: Patient found have a BUN and creatinine of 38/1.9. Baseline creatinine around 0.80. - Etiology is not entirely clear at this time but there may be a component of dehydration as he looks dry on exam. - Bladder scan did not show urinary retention. 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 - Continue IV fluids - Check orthostatic vital signs. - 10/13 BUN and Cr 28/1.2 (2) Hypotension: Code(s): I95.9 - Hypotension, unspecified Status: Acute Assessment and Plan: - Last week he was taken off of his antihypertensives and his blood pressures remain low. - He was hypotensive on arrival but blood pressures have responded to IV fluids. - BP now 138/83 (3) Atrial fibrillation: Code(s): I48.91 - Unspecified atrial fibrillation Status: Acute Assessment and Plan: - Hemoglobin stable. - Continue Eliquis 5 mg b.i.d. 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 - Continue home medication Subjective Date/time seen: 10/14/23 07:21 Interval history: patient alert and oriented to self. Patient's family at bedside. Patient's son states that he feels like his dad is back to himself. Patient's kidney function improved. BUN and creatinine today 20/1.2. Will keep for another night for fluid hydration. patient denies any pain, nausea vomiting. Exam Narrative: GENERAL: Comfortable, no acute distress HENMT: moist mucous membranes EYES: EOM intact b/l NECK: no lymphadenopathy RESPIRATORY: clear to auscultation, no increased respiratory effort CARDIO: Regular rate and rhythm GI: soft, nontender, bowel sounds present SKIN/EXTREMITIES: no rashes, no edema, no redness or tenderness NEURO: PROM intact, A&O x1 Objective Data Vital Signs Vital Signs: Vital Signs - 24 hr 10/13/23 13:25 10/13/23 13:36 10/13/23 13:37 Temperature 97.6 F Pulse Rate 93 77 84 Respiratory Rate 16 13 15 Blood Pressure 90/49 L 115/64 115/64 Pulse Oximetry 100 98 99 Oxygen Delivery Room Air Room Air 10/13/23 14:26 10/13/23 14:28 10/13/23 14:30 Temperature Pulse Rate 70 74 82 Respiratory Rate 15 8 L Blood Pressure 162/135 H 90/59 L 83/54 L Pulse Oximetry 99 100 99 Oxygen Delivery 10/13/23 14:45 10/13/23 15:00 10/13/23 15:45 Temperature Pulse Rate 78 78 72 Respiratory Rate 16 14 16 Blood Pressure 83/52 L 87/61 L 96/74 L Pulse Oximetry 99 100 100 Oxygen Delivery 10/13/23 16:52 10/13/23 17:15 10/13/23 18:00 Temperature 97.0 F L Pulse Rate 68 68 Respiratory Rate 17 18 Blood Pressure 99/70 L 114/54 L 116/55 L Pulse Oximetry 99 100 Oxygen Delivery 10/13/23 18:39 10/13/23 18:39 10/13/23 20:00 Temperature Pulse Rate 79 Respiratory Rate Blood Pressure 92/44 L 87/67 L Pulse Oximetry Oxygen Delivery 10/13/23 22:00 10/14/23 05:28 10/14/23 04:00 Temperature 97.7 F 97.7 F Pulse Rate 77 97 108 H Respiratory Rate 20 20 Blood Pressure 120/95 H 138/83 Pulse Oximetry 96 98 Oxygen Delivery Intake/Output Intake/Output: Intake & Output 10/11/23 10/12/23 10/13/23 10/14/23 23:59 23:59 23:59 23:59 Intake Total 240 2086.7 Balance 240 2086.7 Meds/Results Medications: Active Medications Generic Name Dose Route Start Last Admin Trade Nam
[2023-10-14] MEDS: APIXABAN 5 MG TABLET PO ×2 (09:55→20:23)
[2023-10-14] MEDS: ATORVASTATIN 40 MG TABLET PO (09:55)
[2023-10-14] MEDS: DONEPEZIL HCL 10 MG TABLET PO (09:55)
[2023-10-14] MEDS: levETIRAcetam 500 MG TABLET PO ×2 (09:55→20:23)
[2023-10-14] MEDS: CHOLECALCIFEROL 1,000 UNITS TABLET 5000 UNITS PO (09:55)
[2023-10-14] MEDS: VITAMIN B COMPLEX CAPSULE 1 CAP PO (12:30)
[2023-10-14] MEDS: FOLIC ACID 0.4 MG TABLET 0.8 MG PO (12:30)
[2023-10-14] MEDS: ALPRAZolam (*CRX) 0.25 MG TABLET PO (20:23)
[2023-10-15] MEDS: ACETAMINOPHEN 325 MG TABLET 650 MG PO ×2 (00:01→12:25)
[2023-10-15 05:09] VITALS: BP 97/81; PULSE 111; RESP 18; TEMP 36.3; O2SAT 97
[2023-10-15 06:26] LABS: Hemoglobin 12.5 g/dL (14.0-18.0); Mean Corpuscular HGB Conc 32.9 g/dl (32-36); Mean Corpuscular Hemoglobin 31.8 pg (26-34); Mean Corpuscular Volume 96.7 fl (80-100); Mean Platelet Volume 11.2 fl (7.4-10.4); Platelet Count Result 192 k/mm3 (150-375); Red Blood Count 3.93 M/mm3 (4.6-6.20); Red Cell Distribution Width 12.2 % (11.5-14.5)
[2023-10-15 06:42] LABS: Anion Gap 6 mmol/L (4-12); Blood Urea Nitrogen 17 mg/dL (9-20); Calcium 8.7 mg/dL (8.4-10.2); Carbon Dioxide 22 mmol/L (22-30); Chloride 111 mmol/L (98-107); Estimated CRCL calculation 45 ml/min; Estimated Glomerular Filt Rate > 60; Glucose 92 mg/dL (65-110); Potassium 4.1 mmol/L (3.4-5.0); Sodium 139 mmol/L (137-145)
[2023-10-15] MEDS: LEVOTHYROXINE SODIUM 75 MCG TABLET PO (06:57)
[2023-10-15] MEDS: CHOLECALCIFEROL 1,000 UNITS TABLET 5000 UNITS PO (08:30)
[2023-10-15] MEDS: levETIRAcetam 500 MG TABLET PO (08:30)
[2023-10-15] MEDS: dilTIAZem HCL CD 240 MG CAP.24HR PO (08:30)
[2023-10-15] MEDS: DONEPEZIL HCL 10 MG TABLET PO (08:30)
[2023-10-15] MEDS: APIXABAN 5 MG TABLET PO (08:30)
[2023-10-15] MEDS: ATORVASTATIN 40 MG TABLET PO (08:30)
[2023-10-15] MEDS: FOLIC ACID 0.4 MG TABLET 0.8 MG PO (12:24)
[2023-10-15] MEDS: VITAMIN B COMPLEX CAPSULE 1 CAP PO (12:24)
--- NOTE | 2023-10-15 12:40 | PM.DS ---
DS: Admitting Diagnosis Discharge Date 10/15/23 Admitting Diagnosis CONNIE DS: Discharge Diagnosis Discharge Diagnosis (1) Acute kidney injury: Code(s): N17.9 - Acute kidney failure, unspecified Status: Acute Assessment and Plan: Patient found have a BUN and creatinine of 38/1.9. Baseline creatinine around 0.80. - Etiology is not entirely clear at this time but there may be a component of dehydration as he looks dry on exam. - Bladder scan did not show urinary retention. 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 - Continue IV fluids - Check orthostatic vital signs. - 10/13 BUN and Cr 28/1.2 (2) Hypotension: Code(s): I95.9 - Hypotension, unspecified Status: Acute Assessment and Plan: - Last week he was taken off of his antihypertensives and his blood pressures remain low. - He was hypotensive on arrival but blood pressures have responded to IV fluids. - BP now 138/83 (3) Atrial fibrillation: Code(s): I48.91 - Unspecified atrial fibrillation Status: Acute Assessment and Plan: - Hemoglobin stable. - Continue Eliquis 5 mg b.i.d. (4) Chronic anticoagulation: Code(s): Z79.01 - [facility] (current) use of anticoagulants Status: Acute Assessment and Plan: - Due to AFib - Continue Eliquis (5) Hypothyroidism: Code(s): E03.9 - Hypothyroidism, unspecified Status: Acute Assessment and Plan: - Continue Synthroid (6) Seizure: Onset Date: 2009 Code(s): R56.9 - Unspecified convulsions Status: Acute Assessment and Plan: - Currently takes Keppra 500 mg dex b.i.d. - Continue home medication DS: Summary Hospital Course Hospital Course: This is an 88-year-old male with dementia, seizure, hypertension, atrial fibrillation on chronic anticoagulation, hyperlipidemia, and hypothyroidism who presented to the emergency department for evaluation of low blood pressure. Last week he was taken off of his antihypertensive due to low blood pressures. This morning checked his blood pressure and reports that it was lower than usual and she brought him in for evaluation as he has been more fatigued the last several days. At the time my evaluation he feels fine and denies headache, cold and flu symptoms, chest pain, shortness of breath, abdominal pain, nausea, vomiting, diarrhea, and dysuria. In the ED blood pressure was 90/49 on arrival. The remainder of his vital signs were stable. Labs were significant for hemoglobin of 13.2, sodium 136, BUN 38, creatinine 1.90 (baseline creatinine is around 0.80). He was started on IV fluids Being treated for CONNIE. UA was insignificant. Patient received IV fluids and BUN and creatinine improved with this therapy. Likely cause of a CONNIE was dehydration. Answered all of the patient's family's questions to the best my ability. His labs and vital signs are stable and he is medically clear for discharge at this time. Time Spent with Patient Time attestation: Total time spent providing and/or coordinating discharge services: Exam Narrative: GENERAL: Comfortable, no acute distress HENMT: moist mucous membranes EYES: EOM intact b/l NECK: no lymphadenopathy RESPIRATORY: clear to auscultation, no increased respiratory effort CARDIO: Regular rate and rhythm GI: soft, nontender, bowel sounds present SKIN/EXTREMITIES: no rashes, no edema, no redness or tenderness NEURO: PROM intact, A&O x1 DS: Data Data Completed and Pending Labs on day of discharge: Labs from last 24 hours 10/15/23 05:36 WBC 10.0 RBC 3.93 L Hgb 12.5 L Hct 38.0 L MCV 96.7 MCH 31.8 MCHC 32.9 RDW 12.2 Plt Count 192 MPV 11.2 H Sodium 139 Potassium 4.1 Chloride 111 H Carbon Dioxide 22 Anion Gap 6 BUN 17 D Creatinine 1.10 Estim Creat Clear Calc 45 Estimated GFR > 60 Glucose 92 Calcium 8.7 Discharge
== END 2023-10-15 12:25 | disposition home health service (06) ==
LOC: ANHED 14:09 → ANH3MEDSUR 16:41
PROVIDERS: Internal Medicine Critical Care Medicine; Physician Assistant; Student in an Organized Health Care Education/Training Program; Admitting Provider Family Medicine; Emergency Provider Emergency Medicine; PCP Family Medicine; Visit Provider Family Medicine
DX: N17.9 Acute kidney failure, unspecified (principal); E86.0 Dehydration; I95.9 Hypotension, unspecified; I48.91 Unspecified atrial fibrillation; G40.909 Epilepsy, unspecified, not intractable, without status epilepticus; F03.90 Unspecified dementia, unspecified severity, without behavioral disturbance, psychotic disturbance, mood disturbance, and anxiety; E78.00 Pure hypercholesterolemia, unspecified; E03.9 Hypothyroidism, unspecified; F41.9 Anxiety disorder, unspecified; Z87.891 Personal history of nicotine dependence; Z79.01 Long term (current) use of anticoagulants
CPT/HCPCS: 36415; 76775; 80048; 80053; 81003; 83735; 85025; 85027; 93005; 96360; 96361; 99285; A9270; G0378; J7030

== ENCOUNTER 2023-10-16 16:46 | Observation (INO) | payer OTHER, SELFPAY ==
--- NOTE | ~2023-10-16 | XR_ITS ---
EXAMINATION: XR hip BI 2V w AP pelvis DATE: 10/17/2023 14:23 INDICATION: Right hip pain. TECHNIQUE: An anteroposterior view of the pelvis and 2 views of each hip were obtained. COMPARISON: Pelvis and hip radiograph 05/30/2023 FINDINGS: There is lumbar levocurvature and mild spondylosis. No fracture. There is moderate right hi p osteoarthritis with loose bodies. There is mild left hip osteoarthritis. IMPRESSION: 1. Moderate right hip osteoarthritis with loose bodies. 2. Mild left hip osteoarthritis. Reviewed, dictated and finalized at location A.
--- NOTE | ~2023-10-16 | XR_ITS ---
EXAMINATION: XR ribs BI 3V w CXR 2V DATE: 10/17/2023 09:26 INDICATION: Right chest pain. TECHNIQUE: Frontal and lateral views of the chest, 3 views of the right ribs, and 3 views of the left ribs on a total of 9 radiographs were obtained. COMPARISON: Chest single view 04/01/2023 FINDINGS: There is mild atelectasis in the lower lung zones. No pleural effusion or pneumothorax. The heart size is normal. There are old healed bilateral rib fractures. IMPRESSION: 1. No acute rib fracture. 2. Mild atelectasis in the lower lung zones. Reviewed, dictated and finalized at location A.
--- NOTE | ~2023-10-16 | XR_ITS ---
EXAMINATION: XR lumbar spine 2-3V DATE: 10/17/2023 14:23 INDICATION: Low back pain. TECHNIQUE: 3 views of lumbar spine were obtained. COMPARISON: None. FINDINGS: There is 9 degrees levocurvature of lumbar spine. There is mild chronic anterior wedging of T12 vertebral body. There is a chronic compression fracture of L1 with 1/5 loss of height. There is moderately decreased disc height at L1-L2 and mildly decreased disc height at L4-L5. There are endpla te osteophytes at all levels. There is multilevel severe facet joint osteoarthritis. IMPRESSION: 1. Moderate lumbar spondylosis. Reviewed, dictated and finalized at location A.
[2023-10-16 16:53] VITALS: BP 115/64; PULSE 99; RESP 18; TEMP 36.6; O2SAT 98
--- NOTE | 2023-10-16 16:58 | ECG_ITS ---
[facility] [address] Test Date: 2023-10-16 Pat Name: Jamaal Henley Department: Room: Gender: Size Stamper: Los : 1935 Requested By: Franco Correa Order Number: [id number] Geovanny MD: Igor Casillas D.O. Measurements Intervals [place] Rate: 93 P: 0 AK: 0 QRS: 8 QRSD: 93 T: -9 QT: 363 QTc: 452 Interpretive Statements ATRIAL FIBRILLATION INCOMPLETE RIGHT BUNDLE BRANCH BLOCK BORDERLINE ST-T WAVE ABNORMALITY- INFERIOR LEADS BASELINE ARTIFACT- I, II, AVR ABNORMAL ECG No previous ECG available for comparison Electronically Signed On 10-17-2023 09:22:22 CDT by Igor Casillas D.O.
--- NOTE | 2023-10-16 17:03 | ED.GENADULT ---
HPI - General Adult General Chief complaint: Recheck/Abnormal Lab/Rx Stated complaint: Low BP Time Seen by Provider: 10/16/23 16:50 History of Present Illness HPI narrative: 88-year-old male presenting to the emergency department for evaluation for worsening generalized weakness and hypotension. Patient has history of dementia, seizure, hypertension, atrial fibrillation on chronic anticoagulation, hyperlipidemia, and hypothyroidism. Patient was just admitted few days ago and discharged from the hospital yesterday for suspected hypotension and dehydration. Patient's blood pressures did improve with rehydration. Patient did have his blood pressure medications. Recently due to him having hypertension but still continues to remain hypotensive. Family states that the patient was discharged yesterday he did not do very well at home. Patient is normally able to ambulate on his own but required assistance from both his and son. Family states that his blood pressure was 70 systolic at home today. Related Data Home Medications Medication Instructions Recorded Confirmed folic acid 800 mcg tablet 0.8 mg PO DAILY 03/27/23 10/16/23 alprazolam 0.25 mg tablet 0.25 mg PO TID PRN anxiety 10/13/23 10/16/23 Allergies Allergy/AdvReac Type Severity Reaction Status Date / Time No Known Allergies Allergy Verified 10/16/23 16:58 Review of Systems Review of Systems: All systems reviewed & are unremarkable except as noted in HPI and below PMFSH Past Medical History Medical History (Updated 10/16/23 @ 21:52 by Franco Corrales MD) Anxiety Atrial fibrillation Chronic anticoagulation Dementia Hypercholesterolemia Hypothyroidism Seizure (2009) Surgical History Surgical History (Updated 10/13/23 @ 21:52 by Ashlee Fritz PA-C) History of cataract extraction Family History Family History Father No problems noted. Mother No problems noted. Other Heart disease Social History Social History (Updated 10/13/23 @ 21:53 by Ashlee Fritz PA-C) Social History: Surrogate decision maker: Dargladys Lunaletyyrn, spouse. Code Status: Smoking packs per day: 1 Smoking cigarettes per day: 20.0 Years smoked: 23 Smoking pack-years: 23.00 Smoking status: Former smoker Tobacco type: cigarettes Second hand tobacco smoke exposure: No Alcohol intake: never Drinks per week: 5 Substance use: never Substance use type: does not use Other substance usage details: small glass of wine with sprite daily Do You Feel Safe in your Home?: Yes Lack of Transportation: No Lack of Food: Never True Current Housing: I Have Housing Concerned About Future Housing: No Difficulty Paying Gas/Electric Bills: No Difficulty Paying for Meds: No Currently Unemployed: No Education: Don't Know Difficulty w/ Childcare or Family Care: No Additional living arrangements comments: Lives with spouse. Additional occupation/education comments: Retired from [employer]. Spiritual care concerns: No Exam Narrative: APPEARANCE: Tired appearing HEAD: normocephalic, atraumatic. EYES: PERRLA/EOMI, conjunctivae clear. NOSE: Normal no drainage EARS:TMS clear with good light reflex. THROAT: Pharynx clear, no exudate. NECK: Supple. No adenopathy, no masses. RESPIRATORY: Airway patent, respirations nonlabored. Clear to auscultation bilaterally, no rales, rhonchi, wheezing. CARDIOVASCULAR: Regular rate and rhythm without murmurs rubs or gallops. ABDOMINAL: Soft, nontender, nondistended, normal bowel sounds MUSCULOSKELETAL: Moves all extremities. Strength/ROM intact, No edema, No calf tenderness. NEURO: Alert. Cranial nerves II through XII intact. Grossly intact SKIN: Warm, dry. Normal Color Course Vital Signs Vital signs: Vital Signs Temperature 97.9 F 10/16/23 16:53 Pulse Rate 99 10/16/23 16:53 Res
[2023-10-16] MEDS: SODIUM CHLORIDE 0.9% IV 1,000 ML 999 ML IV CONT ×2 (17:12→18:04)
[2023-10-16 17:34] LABS: Basophils Percent Auto 0.3 % (0.2-1.2); Eosinophils Absolute Auto 0.3 K/mm3 (0-0.3); Eosinophils Percent Auto 2.8 % (0-4.4); Hematocrit 36.6 % (42.0-52.0); Hemoglobin 12.1 g/dL (14.0-18.0); Immature Granulocyte Absolute 0.04 K/mm3 (0.00-0.031); Immature Granulocyte Percent A 0.4 % (0-0.5); Lymphocytes Absolute Auto 1.77 K/mm3 (0.9-3.2); Lymphocytes Percent Auto 18.3 % (18.3-44.2); Mean Corpuscular HGB Conc 33.1 g/dl (32-36); Mean Corpuscular Hemoglobin 32.3 pg (26-34); Mean Corpuscular Volume 97.6 fl (80-100); Mean Platelet Volume 11.2 fl (7.4-10.4); Monocytes Percent Auto 10.7 % (2.6-8.5); Neutrophils Absolute Auto 6.5 K/mm3 (1.3-6.7); Neutrophils Percent Auto 67.5 % (45.5-73.1); Platelet Count Result 192 k/mm3 (150-375); Red Blood Count 3.75 M/mm3 (4.6-6.20); Red Cell Distribution Width 12.6 % (11.5-14.5); White Blood Count 9.7 K/mm3 (4.5-10.0)
[2023-10-16 17:37] VITALS: BP 88/55; PULSE 85; RESP 18; O2SAT 98
[2023-10-16 17:46] LABS: Alanine Aminotransferase 20 U/L (6-50); Albumin Level 3.6 g/dL (3.5-5.1); Alkaline Phosphatase 63 U/L (38-126); Anion Gap 8 mmol/L (4-12); Aspartate Amino Transferase 26 U/L (17-59); Bilirubin,Total 0.7 mg/dL (0.2-1.3); Blood Urea Nitrogen 17 mg/dL (9-20); Calcium 8.5 mg/dL (8.4-10.2); Carbon Dioxide 20 mmol/L (22-30); Chloride 108 mmol/L (98-107); Estimated CRCL calculation 35 ml/min; Estimated Glomerular Filt Rate 48; Glucose 103 mg/dL (65-110); Lactic Acid Reflex 2.2 mmol/L (0.7-2.0); Lipase 288 U/L (23-300); Potassium 3.4 mmol/L (3.4-5.0); Sodium 136 mmol/L (137-145)
[2023-10-16 17:48] LABS: Appearance Urine Clear (Clear); Bilirubin Urine Negative (Negative); Blood Urine Negative (Negative); Color Urine Dark Yellow (Yellow); Glucose Urine UA Negative (Negative); Ketones Urine Trace mg/dL (Negative); Leukocyte Esterase Ur Negative LEU/UL (Negative); Nitrate Urine Negative (Negative); Protein Urine Negative (Negative); Specific Grav Ur 1.022 (1.001-1.035); Urobilinogen Urine 0.2 mg/dL (<2.0)
[2023-10-16 17:56] LABS: Add Urine Microscopic? NO
[2023-10-16 18:04] VITALS: BP 114/59; PULSE 76; RESP 16; O2SAT 99
[2023-10-16 18:17] LABS: INR 1.5; Prothrombin Time 19.4 Seconds (11.1-14.7)
[2023-10-16 18:18] LABS: Partial Thromboplastin Time 42.4 Seconds (22.3-36.8)
[2023-10-16 18:40] VITALS: BP 114/59; PULSE 85; RESP 15; O2SAT 97
[2023-10-16 18:46] LABS: Influenza A QL RT-PCR Negative (Negative); Influenza B QL RT-PCR Negative (Negative); RSV RNA, RT-PCR Negative (Negative); SARS-CoV-2 RNA PCR Negative (Negative)
--- NOTE | 2023-10-16 19:45 | ADMGEN ---
This patient, Jamaal Henley, was admitted to Medical Room 243-01. Patient/family oriented to hospital policies and general routines including ID bracelet, bed and alarms, visiting hours, pain management, procedures, bathroom and other care routines, personal items, smoking policy, room service/diet, and visiting hours. Information on how to activate the Rapid Response Team has been discussed. Patient/Family are encouraged to report perceived risks to care and to ask questions if they do not understand what they are told or what they should do.
[2023-10-16 20:34] VITALS: BMI 29.2
[2023-10-16 20:35] VITALS: BP 102/52; PULSE 87; RESP 20; TEMP 35.7; O2SAT 97
[2023-10-16 20:37] LABS: Reflex Lactic Acid Yes or No Add Lactic
[2023-10-16 21:12] LABS: Lactic Acid 0.8 mmol/L (0.7-2.0)
--- NOTE | 2023-10-16 23:13 | PM.IMHP ---
H&P: HPI History of Present Illness Date/Time: 10/16/23 20:00 Chief Complaint: Low blood pressure. Narrative: This is a pleasant 88-year-old male with history of dementia, seizures, hypertension, atrial fibrillation on chronic anticoagulation, heart failure with reduced ejection fraction, hyperlipidemia, and hypothyroidism who presented to the emergency department for evaluation of low blood pressure. The patient is a fair historian and his son at bedside provides a majority of the following history. He is known to myself and the hospitalist service from an admission last week with acute kidney injury and orthostatic hypotension after presenting with low blood pressures. During his last admission he was hydrated with improvement in his renal function and blood pressures and he was discharged home yesterday. It was my understanding that all of his antihypertensives were discontinued several weeks ago due to issues with soft blood pressures however he was told to continue taking diltiazem 240 mg q.a.m. on his discharge. According to his son, he slept for nearly 24 hours straight and when he got up today he seemed to be on easy on his feet. Blood pressures were checked and once again they were in the 70s to 80s systolic and he was brought back in for evaluation. The patient voices no complaints however on exam he was quite tender to palpation over the right lateral lower ribs. Both he and his son deny recent falls and trauma. The patient also denies headache, cold and flu symptoms, chest pain, shortness of breath, abdominal pain, nausea, vomiting, diarrhea, and dysuria. In the ED: Blood pressure was 115/64 on arrival however was as low as 88/55.. The remainder of his vital signs were stable. Labs were significant for hemoglobin of 12.1, INR 1.5, sodium 136, BUN 17, creatinine 1.40, lactic acid 2.2. Urine was positive for trace ketones. He tested negative for influenza, RSV, and COVID. He received a 2 L normal saline bolus and is being admitted in this setting for close monitoring. Care coordination has been consulted for possible placement as does not feel she can care for him at home due to these recurrent issues with his blood pressure. Review of Systems Review of Systems: 12 systems were reviewed and are negative except for as per HPI. [facility] Past Medical History Medical History (Updated 10/16/23 @ 23:27 by Ashlee Fritz PA-C) Anxiety Atrial fibrillation Chronic anticoagulation Dementia Heart failure with reduced ejection fraction Echocardiogram in March 2023 showed mildly reduced LV systolic function with an EF estimated 45 to 50% and mild biatrial enlargement. Hypercholesterolemia Hypothyroidism Seizure (2009) Surgical History Surgical History History of cataract extraction Family History Family History Father No problems noted. Mother No problems noted. Other Heart disease Social History Social History Social History: Surrogate decision maker: Nighat Henley, spouse. Code Status: Smoking packs per day: 1 Smoking cigarettes per day: 20.0 Years smoked: 23 Smoking pack-years: 23.00 Smoking status: Former smoker Tobacco type: cigarettes Second hand tobacco smoke exposure: No Alcohol intake: never Drinks per week: 5 Substance use: never Substance use type: does not use Other substance usage details: small glass of wine with sprite daily Do You Feel Safe in your Home?: Yes Lack of Transportation: No Lack of Food: Never True Current Housing: I Have Housing Concerned About Future Housing: No Difficulty Paying Gas/Electric Bills: No Difficulty Paying for Meds: No Currently Unemployed: No Education: Don't Know Difficulty w/ Childcare or Family Care: No Additi
[2023-10-16] MEDS: APIXABAN 5 MG TABLET PO (23:54)
[2023-10-16] MEDS: ALPRAZolam (*CRX) 0.25 MG TABLET PO (23:54)
[2023-10-16] MEDS: levETIRAcetam 500 MG TABLET PO (23:54)
[2023-10-16] MEDS: ACETAMINOPHEN 325 MG TABLET 650 MG PO (23:54)
[2023-10-17] VITALS (8 sets, daily range): BP systolic 102–154; BP diastolic 58–82; PULSE 60–100; RESP 17–20; TEMP 36.4–36.6; O2SAT 94–100
--- NOTE | 2023-10-17 00:07 | PC.NURSE ---
Patient very aggressive with staff when trying to do pericare and clean BM and turn patient. Patient hitting and punching staff, attempting to kick staff.
[2023-10-17] MEDS: LEVOTHYROXINE SODIUM 75 MCG TABLET PO (05:09)
[2023-10-17 05:39] LABS: Hematocrit 38.2 % (42.0-52.0); Hemoglobin 12.3 g/dL (14.0-18.0); Mean Corpuscular HGB Conc 32.2 g/dl (32-36); Mean Corpuscular Hemoglobin 32.2 pg (26-34); Mean Platelet Volume 12.1 fl (7.4-10.4); Platelet Count Result 131 k/mm3 (150-375); Red Blood Count 3.82 M/mm3 (4.6-6.20); Red Cell Distribution Width 12.5 % (11.5-14.5); White Blood Count 7.6 K/mm3 (4.5-10.0)
[2023-10-17 05:59] LABS: Anion Gap 7 mmol/L (4-12); Blood Urea Nitrogen 15 mg/dL (9-20); Calcium 8.3 mg/dL (8.4-10.2); Carbon Dioxide 17 mmol/L (22-30); Chloride 112 mmol/L (98-107); Creatine Kinase 172 U/L (55-170); Estimated CRCL calculation 47 ml/min; Estimated Glomerular Filt Rate > 60; Glucose 92 mg/dL (65-110); Magnesium 1.9 mg/dL (1.6-2.3); Potassium 3.8 mmol/L (3.4-5.0); Sodium 136 mmol/L (137-145)
[2023-10-17 07:38] LABS: Toxigenic C. Diff POSITIVE (NEGATIVE)
--- NOTE | 2023-10-17 09:04 | P.PNIM_ITS ---
Progress Note: A&P Assessment and Plan (1) Hypotension: Code(s): I95.9 - Hypotension, unspecified Status: Acute Assessment and Plan: 10/17/23: * Initial blood pressure 88/55 on admission * Likely due to dehydration and CHF with reduced EF * Check orthostatic blood pressures * Given 2L NS in the ER * Continue IV fluid (2) Acute kidney injury: Code(s): N17.9 - Acute kidney failure, unspecified Status: Acute Assessment and Plan: 10/17/23: * secondary to dehydration * Creatinine 1.4 on admission * Baseline creatinine 1.10-1.20 * Creatinine today back to 1.0 (3) C. difficile diarrhea: Code(s): A04.72 - Enterocolitis due to Clostridium difficile, not specified as recurrent Status: Acute Assessment and Plan: 10/17/23: * Could be likely cause of dehydration/hypotension * C-diff positive * Started Difacid (4) Heart failure with reduced ejection fraction: Code(s): I50.20 - Unspecified systolic (congestive) heart failure Status: Acute Assessment and Plan: 10/17/23: * Last ECHO reviewed from 03/28/23 which shown mildly reduced LV systolic function with an EF of 45-50% * Will obtain another Echo considering his continued hypotension. (5) Atrial fibrillation: Code(s): I48.91 - Unspecified atrial fibrillation Status: Acute Assessment and Plan: 10/17/23: * Continue Eliquis * Hold diltiazem due to the hypotension (6) Dementia: Code(s): F03.90 - Unspecified dementia, unspecified severity, without behavioral disturbance, psychotic disturbance, mood disturbance, and anxiety Status: Acute Assessment and Plan: 10/17/23: * Continue Aricept (7) Hypothyroidism: Code(s): E03.9 - Hypothyroidism, unspecified Status: Acute Assessment and Plan: 10/17/23: * Continue Atorvastatin (8) Seizure: Onset Date: 2009 Code(s): R56.9 - Unspecified convulsions Status: Acute Assessment and Plan: 10/17/23: * Continue Keppra (9) Hypothyroid: Code(s): E03.9 - Hypothyroidism, unspecified Status: Acute Assessment and Plan: 10/17/23: * Continue synthroid (10) Right hip pain: Code(s): M25.551 - Pain in right hip Status: Acute Assessment and Plan: 10/17/23: * Patient reporting right hip pain * Right hip x-ray showing moderate right hip osteoarthritis with loose bodies, mild left hip osteoarthritis * Lumbar spine x-ray showing moderate lumbar spondylosis with decreased disc height at L1-L2 which is moderate in mildly decreased disc height at L4-L5, multiple severe facet joint osteoarthritis. Time Spent With Patient Time with patient: Greater than 35 minutes Subjective Date/time seen: 10/17/23 09:04 Interval history: This is an 88 year old male who presented to the hospital on 10/16/23 with complaints of low blood pressure. Initial labs revealed hemoglobin of 12.1, sodium 136, bicarb 20, creatinine 1.4, EGFR 48, lactic acid 2.2> 0.8. UA was performed and only showed trace ketones. Respiratory panel was negative for influenza a and B, RSV, COVID. Patient is C diff positive with frequent stools. He was given 2L of NS while in the ER. He was started on Difacid. Patient was recently admitted and discharged on 10/15/23 for similar complaints. He was restarted on his diltiazem on discharge which is now held. On examination today patient is alert and up to the chair. is at the bedside. He denies any fever, chills, nausea, vomiting, diarrhea, abdominal
--- NOTE | 2023-10-17 09:04 | PM.IMPN ---
Progress Note: A&P Assessment and Plan (1) Hypotension: Code(s): I95.9 - Hypotension, unspecified Status: Acute Assessment and Plan: 10/17/23: Initial blood pressure 88/55 on admission Likely due to dehydration and CHF with reduced EF Check orthostatic blood pressures Given 2L NS in the ER Continue IV fluid (2) Acute kidney injury: Code(s): N17.9 - Acute kidney failure, unspecified Status: Acute Assessment and Plan: 10/17/23: secondary to dehydration Creatinine 1.4 on admission Baseline creatinine 1.10-1.20 Creatinine today back to 1.0 (3) C. difficile diarrhea: Code(s): A04.72 - Enterocolitis due to Clostridium difficile, not specified as recurrent Status: Acute Assessment and Plan: 10/17/23: Could be likely cause of dehydration/hypotension C-diff positive Started Difacid (4) Heart failure with reduced ejection fraction: Code(s): I50.20 - Unspecified systolic (congestive) heart failure Status: Acute Assessment and Plan: 10/17/23: Last ECHO reviewed from 03/28/23 which shown mildly reduced LV systolic function with an EF of 45-50% Will obtain another Echo considering his continued hypotension. (5) Atrial fibrillation: Code(s): I48.91 - Unspecified atrial fibrillation Status: Acute Assessment and Plan: 10/17/23: Continue Eliquis Hold diltiazem due to the hypotension (6) Dementia: Code(s): F03.90 - Unspecified dementia, unspecified severity, without behavioral disturbance, psychotic disturbance, mood disturbance, and anxiety Status: Acute Assessment and Plan: 10/17/23: Continue Aricept (7) Hypothyroidism: Code(s): E03.9 - Hypothyroidism, unspecified Status: Acute Assessment and Plan: 10/17/23: Continue Atorvastatin (8) Seizure: Onset Date: 2009 Code(s): R56.9 - Unspecified convulsions Status: Acute Assessment and Plan: 10/17/23: Continue Keppra (9) Hypothyroid: Code(s): E03.9 - Hypothyroidism, unspecified Status: Acute Assessment and Plan: 10/17/23: Continue synthroid (10) Right hip pain: Code(s): M25.551 - Pain in right hip Status: Acute Assessment and Plan: 10/17/23: Patient reporting right hip pain Right hip x-ray showing moderate right hip osteoarthritis with loose bodies, mild left hip osteoarthritis Lumbar spine x-ray showing moderate lumbar spondylosis with decreased disc height at L1-L2 which is moderate in mildly decreased disc height at L4-L5, multiple severe facet joint osteoarthritis. Time Spent With Patient Time with patient: Greater than 35 minutes Subjective Date/time seen: 10/17/23 09:04 Interval history: This is an 88 year old male who presented to the hospital on 10/16/23 with complaints of low blood pressure. Initial labs revealed hemoglobin of 12.1, sodium 136, bicarb 20, creatinine 1.4, EGFR 48, lactic acid 2.2> 0.8. UA was performed and only showed trace ketones. Respiratory panel was negative for influenza a and B, RSV, COVID. Patient is C diff positive with frequent stools. He was given 2L of NS while in the ER. He was started on Difacid. Patient was recently admitted and discharged on 10/15/23 for similar complaints. He was restarted on his diltiazem on discharge which is now held. On examination today patient is alert and up to the chair. is at the bedside. He denies any fever, chills, nausea, vomiting, diarrhea, abdominal pain, chest pain, shortness a breath, lightheadedness, dizziness, headache. He endorses right hip pain today. Labs today revealed hemoglobin 12.3, sodium 136, bicarb 17, creatinine is down to 1.0, magnesium 1.9, total CK was 172. X-ray of right hip shows moderate osteoarthritis with loose bodies, mild left hip osteoarthritis. Lumbar spine shows moderate lumbar spondylosis with moderately decreased disc height at L1-L2 and mildly decreased disc height
[2023-10-17] MEDS: levETIRAcetam 500 MG TABLET PO ×2 (09:49→20:16)
[2023-10-17] MEDS: APIXABAN 5 MG TABLET PO ×2 (09:49→20:16)
[2023-10-17] MEDS: FIDAXOMICIN 200 MG TABLET PO ×2 (09:49→20:16)
[2023-10-17] MEDS: FOLIC ACID 0.4 MG TABLET 0.8 MG PO (09:49)
[2023-10-17] MEDS: DONEPEZIL HCL 10 MG TABLET PO (09:49)
[2023-10-17] MEDS: ATORVASTATIN 40 MG TABLET PO (09:49)
[2023-10-17] MEDS: ALPRAZolam (*CRX) 0.25 MG TABLET PO ×2 (15:39→20:16)
--- NOTE | 2023-10-18 | ECHO_ITS ---
Patient Info Name: Jamaal Henley Age: 88 years : 1935 Gender: Male Ht: 69 in Wt: 195 lbs BSA: 2.10 m2 HR: 100 bpm BP: 133 / 73 mmHg Heart Rhythm: Atrial Fibrillation Technical Quality: Fair Exam Date: 10/18/2023 7:32 AM Exam Location: Echo Lab Patient Status: Inpatient Admit Date: 10/16/2023 Staff Ordering Physician: Keren Escalera APRN Pre Planning Advisor: Hollie Lopez RDCS Attending Provider: Keren Escalera APRN Referring Physician: Lali BOWSER; Exam Type: CA echo doppler color flow Study Info Indications - chronic hypotension Complete two-dimensional, color flow and Doppler transthoracic echocardiogram is performed. Summary 1. Complete two-dimensional, color flow and Doppler transthoracic echocardiogram is performed. 2. Mild left ventricular enlargement with mildly reduced systolic function ejection fraction 40-45%. 3. Severe right atrial enlargement. 4. Moderate left atrial enlargement. 5. Sclerotic aortic valve which is not stenotic. 6. Atrial fibrillation. Left Ventricle Left ventricular chamber dimension is mildly enlarged. Left ventricular systolic function is mildly reduced, estimated at 40-45%. The left ventricular diastolic function is indeterminate. Right Ventricle Right ventricular chamber dimension is normal. Left Atria Left atrial chamber dimension is moderately enlarged. Right Atria Right atrial chamber dimension is severely enlarged. Aortic Valve The aortic valve is trileaflet. There is mild aortic valve sclerosis. Pulmonic Valve The pulmonic valve is not well visualized. Mitral Valve The mitral valve has normal leaflets. The mitral valve annulus is mildly calcified. Tricuspid Valve The tricuspid valve leaflets are normal. There is mild tricuspid valve regurgitation. Pericardium/Pleural The pericardium appears normal. Aorta The aortic root size at the sinus of Valsalva is normal. Left Ventricular Outflow Tract Name Value Normal LVOT 2D LVOT Diameter 2.0 cm LVOT Doppler LVOT Peak Gradient 2 mmHg LVOT Mean Gradient 1 mmHg LVOT VTI 11 cm LVOT VTI/AV VTI Ratio 0.7 LVOT Stroke Volume 35 ml LVOT CO 3.9 l/min LVOT CI 1.9 l/min/m2 Pulmonic Valve Name Value Normal RVOT Doppler RVOT Peak Gradient 1 mmHg PV Doppler PV Peak Gradient 2 mmHg Aorta Name Value Normal Ascending Aorta Ao Root Diameter (MM) 3.0 cm
[2023-10-18] MEDS: ALPRAZolam (*CRX) 0.25 MG TABLET PO (04:11)
[2023-10-18] MEDS: LEVOTHYROXINE SODIUM 75 MCG TABLET PO (04:11)
[2023-10-18 05:20] LABS: Basophils Percent Auto 0.4 % (0.2-1.2); Eosinophils Absolute Auto 0.3 K/mm3 (0-0.3); Eosinophils Percent Auto 4.2 % (0-4.4); Hematocrit 36.5 % (42.0-52.0); Hemoglobin 12.4 g/dL (14.0-18.0); Immature Granulocyte Absolute 0.02 K/mm3 (0.00-0.031); Immature Granulocyte Percent A 0.3 % (0-0.5); Lymphocytes Absolute Auto 1.39 K/mm3 (0.9-3.2); Mean Corpuscular Hemoglobin 32.4 pg (26-34); Mean Corpuscular Volume 95.3 fl (80-100); Mean Platelet Volume 11.2 fl (7.4-10.4); Monocytes Absolute Auto 0.6 K/mm3 (0.1-0.6); Monocytes Percent Auto 9.2 % (2.6-8.5); Neutrophils Absolute Auto 4.6 K/mm3 (1.3-6.7); Neutrophils Percent Auto 65.9 % (45.5-73.1); Platelet Count Result 194 k/mm3 (150-375); Red Blood Count 3.83 M/mm3 (4.6-6.20); Red Cell Distribution Width 12.6 % (11.5-14.5)
[2023-10-18 05:31] LABS: Alanine Aminotransferase 18 U/L (6-50); Albumin Level 3.7 g/dL (3.5-5.1); Alkaline Phosphatase 71 U/L (38-126); Anion Gap 7 mmol/L (4-12); Aspartate Amino Transferase 23 U/L (17-59); Bilirubin,Total 0.8 mg/dL (0.2-1.3); Blood Urea Nitrogen 13 mg/dL (9-20); Calcium 8.8 mg/dL (8.4-10.2); Carbon Dioxide 23 mmol/L (22-30); Chloride 109 mmol/L (98-107); Estimated CRCL calculation 52 ml/min; Estimated Glomerular Filt Rate > 60; Glucose 101 mg/dL (65-110); Magnesium 1.7 mg/dL (1.6-2.3); Potassium 3.7 mmol/L (3.4-5.0); Sodium 139 mmol/L (137-145)
[2023-10-18 08:25] VITALS: BP 127/93; O2SAT 98
[2023-10-18 08:28] VITALS: BP 131/73
[2023-10-18] MEDS: APIXABAN 5 MG TABLET PO ×2 (09:22→21:24)
[2023-10-18] MEDS: ATORVASTATIN 40 MG TABLET PO (09:22)
[2023-10-18] MEDS: DONEPEZIL HCL 10 MG TABLET PO (09:22)
[2023-10-18] MEDS: levETIRAcetam 500 MG TABLET PO ×2 (09:23→21:24)
[2023-10-18] MEDS: FIDAXOMICIN 200 MG TABLET PO ×2 (09:23→21:24)
[2023-10-18] MEDS: FOLIC ACID 0.4 MG TABLET 0.8 MG PO (09:24)
[2023-10-18 13:13] VITALS: BP 110/60; PULSE 86
--- NOTE | 2023-10-18 13:20 | P.PNIM_ITS ---
Progress Note: A&P Assessment and Plan (1) Hypotension: Code(s): I95.9 - Hypotension, unspecified Status: Acute Assessment and Plan: 10/17/23: * Initial blood pressure 88/55 on admission * Likely due to dehydration and CHF with reduced EF * Check orthostatic blood pressures * Given 2L NS in the ER * Continue IV fluid 10/18/23: * B/P improved to 110/60-127/93 * IVF stopped * Encourage po intake * Plan for SNF discharge tomorrow (2) Acute kidney injury: Code(s): N17.9 - Acute kidney failure, unspecified Status: Acute Assessment and Plan: 10/17/23: * secondary to dehydration * Creatinine 1.4 on admission * Baseline creatinine 1.10-1.20 * Creatinine today back to 1.0 10/18/23: * Creatinine 0.90 * Resolved (3) C. difficile diarrhea: Code(s): A04.72 - Enterocolitis due to Clostridium difficile, not specified as recurrent Status: Acute Assessment and Plan: 10/17/23: * Could be likely cause of dehydration/hypotension * C-diff positive * Started Difacid 10/18/23: * No change to current treatment plan (4) Heart failure with reduced ejection fraction: Code(s): I50.20 - Unspecified systolic (congestive) heart failure Status: Acute Assessment and Plan: 10/17/23: * Last ECHO reviewed from 03/28/23 which shown mildly reduced LV systolic function with an EF of 45-50% * Will obtain another Echo considering his continued hypotension. 10/18/23: * Echo results pending (5) Atrial fibrillation: Code(s): I48.91 - Unspecified atrial fibrillation Status: Acute Assessment and Plan: 10/17/23: * Continue Eliquis * Hold diltiazem due to the hypotension 10/18/23: * No change to current treatment plan (6) Dementia: Code(s): F03.90 - Unspecified dementia, unspecified severity, without behavioral disturbance, psychotic disturbance, mood disturbance, and anxiety Status: Acute Assessment and Plan: 10/17/23: * Continue Aricept 10/18/23: * No change to current treatment plan (7) Hypothyroidism: Code(s): E03.9 - Hypothyroidism, unspecified Status: Acute Assessment and Plan: 10/17/23: * Continue synthroid 10/18/23: * No change to current treatment plan (8) Seizure: Onset Date: 2009 Code(s): R56.9 - Unspecified convulsions Status: Acute Assessment and Plan: 10/17/23: * Continue Keppra 10/18/23: * No change to current treatment plan (9) Right hip pain: Code(s): M25.551 - Pain in right hip Status: Acute Assessment and Plan: 10/17/23: * Patient reporting right hip pain * Right hip x-ray showing moderate right hip osteoarthritis with loose bodies, mild left hip osteoarthritis * Lumbar spine x-ray showing moderate lumbar spondylosis with decreased disc height at L1-L2 which is moderate in mildly decreased disc height at L4-L5, multiple severe facet joint osteoarthritis. 10/18/23: * Continue pain control * No change to current treatment plan Time Spent With Patient Time with patient: 25 - 35 minutes Subjective Date/time seen: 10/18/23 13:20 Interval history: 10/17/23: This is an 88 year old male who presented to the hospital on 10/16/23 with complaints of low blood pressure. Initial labs revealed hemoglobin of 12.1, sodium 136, bicarb 20, creatinine 1.4, EGFR 48, lactic acid 2.2> 0.8. UA was performed and only showed trace ketones. Respiratory panel was
--- NOTE | 2023-10-18 13:20 | PM.IMPN ---
Progress Note: A&P Assessment and Plan (1) Hypotension: Code(s): I95.9 - Hypotension, unspecified Status: Acute Assessment and Plan: 10/17/23: Initial blood pressure 88/55 on admission Likely due to dehydration and CHF with reduced EF Check orthostatic blood pressures Given 2L NS in the ER Continue IV fluid 10/18/23: B/P improved to 110/60-127/93 IVF stopped Encourage po intake Plan for SNF discharge tomorrow (2) Acute kidney injury: Code(s): N17.9 - Acute kidney failure, unspecified Status: Acute Assessment and Plan: 10/17/23: secondary to dehydration Creatinine 1.4 on admission Baseline creatinine 1.10-1.20 Creatinine today back to 1.0 10/18/23: Creatinine 0.90 Resolved (3) C. difficile diarrhea: Code(s): A04.72 - Enterocolitis due to Clostridium difficile, not specified as recurrent Status: Acute Assessment and Plan: 10/17/23: Could be likely cause of dehydration/hypotension C-diff positive Started Difacid 10/18/23: No change to current treatment plan (4) Heart failure with reduced ejection fraction: Code(s): I50.20 - Unspecified systolic (congestive) heart failure Status: Acute Assessment and Plan: 10/17/23: Last ECHO reviewed from 03/28/23 which shown mildly reduced LV systolic function with an EF of 45-50% Will obtain another Echo considering his continued hypotension. 10/18/23: Echo results pending (5) Atrial fibrillation: Code(s): I48.91 - Unspecified atrial fibrillation Status: Acute Assessment and Plan: 10/17/23: Continue Eliquis Hold diltiazem due to the hypotension 10/18/23: No change to current treatment plan (6) Dementia: Code(s): F03.90 - Unspecified dementia, unspecified severity, without behavioral disturbance, psychotic disturbance, mood disturbance, and anxiety Status: Acute Assessment and Plan: 10/17/23: Continue Aricept 10/18/23: No change to current treatment plan (7) Hypothyroidism: Code(s): E03.9 - Hypothyroidism, unspecified Status: Acute Assessment and Plan: 10/17/23: Continue synthroid 10/18/23: No change to current treatment plan (8) Seizure: Onset Date: 2009 Code(s): R56.9 - Unspecified convulsions Status: Acute Assessment and Plan: 10/17/23: Continue Keppra 10/18/23: No change to current treatment plan (9) Right hip pain: Code(s): M25.551 - Pain in right hip Status: Acute Assessment and Plan: 10/17/23: Patient reporting right hip pain Right hip x-ray showing moderate right hip osteoarthritis with loose bodies, mild left hip osteoarthritis Lumbar spine x-ray showing moderate lumbar spondylosis with decreased disc height at L1-L2 which is moderate in mildly decreased disc height at L4-L5, multiple severe facet joint osteoarthritis. 10/18/23: Continue pain control No change to current treatment plan Time Spent With Patient Time with patient: 25 - 35 minutes Subjective Date/time seen: 10/18/23 13:20 Interval history: 10/17/23: This is an 88 year old male who presented to the hospital on 10/16/23 with complaints of low blood pressure. Initial labs revealed hemoglobin of 12.1, sodium 136, bicarb 20, creatinine 1.4, EGFR 48, lactic acid 2.2> 0.8. UA was performed and only showed trace ketones. Respiratory panel was negative for influenza a and B, RSV, COVID. Patient is C diff positive with frequent stools. He was given 2L of NS while in the ER. He was started on Difacid. Patient was recently admitted and discharged on 10/15/23 for similar complaints. He was restarted on his diltiazem on discharge which is now held. On examination today patient is alert and up to the chair. is at the bedside. He denies any fever, chills, nausea, vomiting, diarrhea, abdominal pain, chest pain, shortness a breath, lightheadedness, dizziness, headache. He endorses right hip
[2023-10-18 14:54] VITALS: PULSE 78; RESP 17; TEMP 36.4; O2SAT 100
--- NOTE | 2023-10-18 15:00 | PCOTNOTE ---
Attempted to see Patient this P.M. Patient's and son present in the room. They state Patient has been sleeping most of the day and is difficulty to arouse. Therapist attempted to arouse Patient, Patient was aroused biut unable to stay awake, and unable to verbalize to be understood. RN notified and aware. Patient unable to participate at this time.
[2023-10-18 21:36] VITALS: BP 127/80; PULSE 87; RESP 18; TEMP 36.6; O2SAT 98
[2023-10-18 21:40] VITALS: BP 102/86; PULSE 100
[2023-10-19] MEDS: LEVOTHYROXINE SODIUM 75 MCG TABLET PO (04:57)
[2023-10-19 05:07] LABS: Basophils Absolute Auto 0.1 K/mm3 (0.0-0.1); Basophils Percent Auto 0.7 % (0.2-1.2); Eosinophils Absolute Auto 0.4 K/mm3 (0-0.3); Eosinophils Percent Auto 5.9 % (0-4.4); Hematocrit 35.5 % (42.0-52.0); Hemoglobin 12.2 g/dL (14.0-18.0); Immature Granulocyte Absolute 0.03 K/mm3 (0.00-0.031); Immature Granulocyte Percent A 0.4 % (0-0.5); Lymphocytes Absolute Auto 1.88 K/mm3 (0.9-3.2); Lymphocytes Percent Auto 27.9 % (18.3-44.2); Mean Corpuscular HGB Conc 34.4 g/dl (32-36); Mean Corpuscular Hemoglobin 32.6 pg (26-34); Mean Corpuscular Volume 94.9 fl (80-100); Mean Platelet Volume 10.9 fl (7.4-10.4); Monocytes Absolute Auto 0.7 K/mm3 (0.1-0.6); Monocytes Percent Auto 10.2 % (2.6-8.5); Neutrophils Absolute Auto 3.7 K/mm3 (1.3-6.7); Neutrophils Percent Auto 54.9 % (45.5-73.1); Platelet Count Result 200 k/mm3 (150-375); Red Blood Count 3.74 M/mm3 (4.6-6.20); Red Cell Distribution Width 12.8 % (11.5-14.5); White Blood Count 6.8 K/mm3 (4.5-10.0)
[2023-10-19 05:22] LABS: Alanine Aminotransferase 16 U/L (6-50); Albumin Level 3.2 g/dL (3.5-5.1); Alkaline Phosphatase 67 U/L (38-126); Anion Gap 4 mmol/L (4-12); Aspartate Amino Transferase 23 U/L (17-59); Bilirubin,Total 0.7 mg/dL (0.2-1.3); Blood Urea Nitrogen 11 mg/dL (9-20); Calcium 8.7 mg/dL (8.4-10.2); Carbon Dioxide 25 mmol/L (22-30); Chloride 109 mmol/L (98-107); Estimated CRCL calculation 47 ml/min; Estimated Glomerular Filt Rate > 60; Glucose 91 mg/dL (65-110); Magnesium 1.7 mg/dL (1.6-2.3); Potassium 3.6 mmol/L (3.4-5.0); Sodium 138 mmol/L (137-145)
[2023-10-19 05:59] VITALS: BP 112/68; PULSE 105; RESP 16; TEMP 36.4; O2SAT 98
[2023-10-19] MEDS: ATORVASTATIN 40 MG TABLET PO (08:36)
[2023-10-19] MEDS: DONEPEZIL HCL 10 MG TABLET PO (08:37)
[2023-10-19] MEDS: APIXABAN 5 MG TABLET PO (08:37)
[2023-10-19] MEDS: FIDAXOMICIN 200 MG TABLET PO (08:37)
[2023-10-19] MEDS: levETIRAcetam 500 MG TABLET PO (08:37)
[2023-10-19] MEDS: FOLIC ACID 0.4 MG TABLET 0.8 MG PO (08:37)
--- NOTE | 2023-10-19 10:02 | PM.IMPN ---
Progress Note: A&P Assessment and Plan (1) Hypotension: Code(s): I95.9 - Hypotension, unspecified Status: Acute (2) Acute kidney injury: Code(s): N17.9 - Acute kidney failure, unspecified Status: Acute (3) Hypothyroidism: Code(s): E03.9 - Hypothyroidism, unspecified Status: Acute Plan hypotension, acute renal failure upon arrival patient was found have acute renal failure, hypotension likely secondary to dehydration, poor intake received fluid resuscitation Chronic blood pressure stable, acute renal failure resolved C. difficile diarrhea: ?Code(s): A04.72 - Enterocolitis due to Clostridium difficile, not specified as recurrent ?Status:?Acute ?Assessment and Plan: 10/17/23: Could be likely cause of dehydration/hypotension C-diff positive Started Difacid 10/18/23: No change to current treatment plan has 1 bowel movement today, no diarrhea, continue Difacid for total 10 days (4) Heart failure with reduced ejection fraction: ?Code(s): I50.20 - Unspecified systolic (congestive) heart failure ?Status:?Acute ?Assessment and Plan: Last ECHO reviewed from 03/28/23 which shown mildly reduced LV systolic function with an EF of 45-50% Will obtain another Echo considering his continued hypotension. 10/18/23: ? 1. Complete two-dimensional, color flow and Doppler transthoracic echocardiogram is performed. ? 2. Mild left ventricular enlargement with mildly reduced systolic function ejection fraction 40-45%. ? 3. Severe right atrial enlargement. ? 4. Moderate left atrial enlargement. ? 5. Sclerotic aortic valve which is not stenotic. ? 6. Atrial fibrillation. compensated (5) Atrial fibrillation: ?Code(s): I48.91 - Unspecified atrial fibrillation continue Eliquis 5 mg b.i.d. p.o., hold Cardizem because of soft blood pressure, may resume Cardizem per PCP evaluation insert office (8) Seizure: ?Onset Date:?2009 ?Code(s): R56.9 - Unspecified convulsions ?Status:?Acute ?Assessment and Plan: Continue Keppra (9) Right hip pain: ?Code(s): M25.551 - Pain in right hip ?Status:?Acute ?Assessment and Plan: 10/17/23: Patient reporting right hip pain Right hip x-ray showing moderate right hip osteoarthritis with loose bodies, mild left hip osteoarthritis Lumbar spine x-ray showing moderate lumbar spondylosis with decreased disc height at L1-L2 which is moderate in mildly decreased disc height at L4-L5, multiple severe facet joint osteoarthritis. Continue pain control No change to current treatment planTime Spent With Patient hypothyroidism Continue Synthroid 75 mcg daily p.o. monitor TSH per PCP Subjective Date/time seen: 10/19/23 10:02 Interval history: I saw exam patient today, patient feels better, has bowel movement, has general weakness, but patient can ambulate with assistance of physical therapist. Patient denies abdomen pain, nausea vomiting diarrhea dysuria. patient had 1 bowel movement today Exam Narrative: GENERAL: Pleasant, in no acute distress. Well-nourished. - EYES: EOMI. Anicteric. - HENT: Moist mucous membranes. - LUNGS: Clear to auscultation bilaterally, no wheezing, rhonchi, or rales. - CARDIOVASCULAR: Regular rate and rhythm. No murmur. No JVD. - ABDOMEN: Soft, non-tender and non-distended. No palpable masses. - EXTREMITIES: No edema. Peripheral pulses 2+. Non-tender. - NEUROLOGIC: No focal neurological deficits. CN II-XII grossly intact. - PSYCHIATRIC: Awake, Alert and oriented x 3. Appropriate mood and affect. general weakness - SKIN: No rashes or lesions. Warm. - LYMPH: No cervical lymphadenopathy. Objective Data Vital Signs Vital Signs: Vital Signs - 24 hr 10/18/23 13:13 10/18/23 14:54 10/18/23 21:36 Temperature 97.5 F L 97.8 F Pulse Rate 86 78 87 Respiratory Rate 17 18 Blood Pressure 110/60 127/80 Pulse Oximetry 100 98 Oxygen Delivery
--- NOTE | 2023-10-19 11:27 | PM.DS ---
DS: Admitting Diagnosis Discharge Date 10/18 Admitting Diagnosis (1) Hypotension: ?Code(s): I95.9 - Hypotension, unspecified ?Status:?Acute (2) Acute kidney injury: ?Code(s): N17.9 - Acute kidney failure, unspecified ?Status:?Acute (3) Hypothyroidism: ?Code(s): E03.9 - Hypothyroidism, unspecified ?Status:?Acute DS: Discharge Diagnosis Discharge Diagnosis (1) Hypotension: Code(s): I95.9 - Hypotension, unspecified Status: Acute (2) Acute kidney injury: Code(s): N17.9 - Acute kidney failure, unspecified Status: Acute (3) Hypothyroidism: Code(s): E03.9 - Hypothyroidism, unspecified Status: Acute DS: Summary Hospital Course Hospital Course: per H&P, 88-year-old male presenting to the emergency department for evaluation for worsening generalized weakness and hypotension.? Patient has history of dementia, seizure, hypertension, atrial fibrillation on chronic anticoagulation, hyperlipidemia, and hypothyroidism.? Patient was just admitted few days ago and discharged from the hospital yesterday for suspected hypotension and dehydration.? Patient's blood pressures did improve with rehydration.? Patient did have his blood pressure medications.? Recently due to him having hypertension but still continues to remain hypotensive.? Family states that the patient was discharged yesterday he did not do very well at home.? Patient is normally able to ambulate on his own but required assistance from both his and son.? Family states that his blood pressure was 70 systolic at home the following medical issues have been addressed during hospitalization hypotension, acute renal failure upon arrival patient was found have acute renal failure, hypotension likely secondary to dehydration, poor intake received fluid resuscitation Chronic blood pressure stable, acute renal failure resolved C. difficile diarrhea: ?Code(s): A04.72 - Enterocolitis due to Clostridium difficile, not specified as recurrent ?Status:?Acute ?Assessment and Plan: 10/17/23: Could be likely cause of dehydration/hypotension C-diff positive Started Difacid 10/18/23: No change to current treatment plan has 1 bowel movement today, no diarrhea, continue Difacid for total 10 days (4) Heart failure with reduced ejection fraction: ?Code(s): I50.20 - Unspecified systolic (congestive) heart failure ?Status:?Acute ?Assessment and Plan: Last ECHO reviewed from 03/28/23 which shown mildly reduced LV systolic function with an EF of 45-50% Will obtain another Echo considering his continued hypotension. 10/18/23: ? 1. Complete two-dimensional, color flow and Doppler transthoracic echocardiogram is performed. ? 2. Mild left ventricular enlargement with mildly reduced systolic function ejection fraction 40-45%. ? 3. Severe right atrial enlargement. ? 4. Moderate left atrial enlargement. ? 5. Sclerotic aortic valve which is not stenotic. ? 6. Atrial fibrillation. compensated (5) Atrial fibrillation: ?Code(s): I48.91 - Unspecified atrial fibrillation continue Eliquis 5 mg b.i.d. p.o., hold Cardizem because of soft blood pressure, may resume Cardizem per PCP evaluation insert office (8) Seizure: ?Onset Date:?2009 ?Code(s): R56.9 - Unspecified convulsions ?Status:?Acute ?Assessment and Plan: Continue Keppra (9) Right hip pain: ?Code(s): M25.551 - Pain in right hip ?Status:?Acute ?Assessment and Plan: 10/17/23: Patient reporting right hip pain Right hip x-ray showing moderate right hip osteoarthritis with loose bodies, mild left hip osteoarthritis Lumbar spine x-ray showing moderate lumbar spondylosis with decreased disc height at L1-L2 which is moderate in mildly decreased disc height at L4-L5, multiple severe facet joint osteoarthritis. Continue pain control No change to current treatment planTime Spent With [place]
[2023-10-19 12:28] LABS: SARS-CoV-2 RNA PCR Negative (Negative)
--- NOTE | 2023-10-19 15:14 | PC.NURSE ---
Received call from STEPHANE Mcdaniel at [facility] requesting script for PRN xanax. Patient last took medication 10/17 around 4am and did not tolerate medication well and was noted to have increased lethargy and confusion. Dr. Hickey notified of request for script per [facility]. Provider requesting prescription for PRN xanax to be discontinued at this time.
== END 2023-10-19 13:25 ==
LOC: ANHED 17:39 → ANH2MED 21:52
PROVIDERS: Hospitalist; Physician Assistant; Admitting Provider General Practice; Emergency Provider Emergency Medicine; PCP Family Medicine; Visit Provider Nurse Practitioner Acute Care
DX: N17.9 Acute kidney failure, unspecified (principal); A04.72 Enterocolitis due to Clostridium difficile, not specified as recurrent; I95.9 Hypotension, unspecified; R07.81 Pleurodynia; I11.0 Hypertensive heart disease with heart failure; I50.20 Unspecified systolic (congestive) heart failure; M25.551 Pain in right hip; R53.1 Weakness; F03.90 Unspecified dementia, unspecified severity, without behavioral disturbance, psychotic disturbance, mood disturbance, and anxiety; I48.91 Unspecified atrial fibrillation; E78.5 Hyperlipidemia, unspecified; G40.909 Epilepsy, unspecified, not intractable, without status epilepticus; E03.9 Hypothyroidism, unspecified; F41.9 Anxiety disorder, unspecified; Z79.01 Long term (current) use of anticoagulants; Z87.891 Personal history of nicotine dependence; R62.7 Adult failure to thrive; Z68.28 Body mass index [BMI] 28.0-28.9, adult; Z20.822 Contact with and (suspected) exposure to COVID-19
CPT/HCPCS: 36415; 71046; 71110; 72100; 73521; 80048; 80053; 81003; 82550; 83605; 83690; 83735; 85025; 85027; 85610; 85730; 87493; 87635; 87637; 93005; 93306; 96360; 96361; 97110; 97161; 97166; 97530; 99285; A9270; G0378; J7030

== ENCOUNTER 2023-11-26 12:43 | Inpatient (IN) | payer OTHER, SELFPAY ==
[2023-11-26] VITALS (69 sets, daily range): BP systolic 92–141; BP diastolic 64–110; PULSE 118–189; RESP 16–34; TEMP 35.9–36.8; O2SAT 82–99; BMI 28.4; BMI 28.6
--- NOTE | ~2023-11-26 | XR_ITS ---
XR chest 1V portable Ordering provider: Bon Molina MD History: 88 years Male with . Cough . Comparison: Oct 17 2023 FINDINGS: MEDIASTINUM: The cardiac silhouette is slightly enlarged. Prominent ryan. LUNGS: No pneumothorax. Bibasilar opacification suggestive of atelectasis versus pneumonia with bilat eral pleural effusion more on the right side. OTHER: No free air under the diaphragm. Degenerative spine. IMPRESSION: Bibasilar opacification suggestive of pneumonia and less likely atelectasis with bilateral pleural ef fusion more on the right side. Reviewed, dictated and finalized at location A. IMPRESSION: Bibasilar opacification suggestive of pneumonia and less likely atelectasis wit h bilateral pleural effusion more on the right side.
--- NOTE | 2023-11-26 12:51 | ECG_ITS ---
Test Date: 2023-11-26 12:54:22 Measurements Intervals [place] Rate: 184 P: 0 MN: 0 QRS: 9 QRSD: 82 T: -5 QT: 223 QTc: 390 Interpretive Statements ATRIAL FIBRILLATION WITH RAPID VENTRICULAR RESPONSE RSR' IN V1 OR V2, RIGHT VCD OR RVH LOW QRS VOLTAGE IN LIMB LEADS BORDERLINE T WAVE ABNORMALITY- ANT/INF LEADS BASELINE ARTIFACT- I, III, AVR, AVL ABNORMAL ECG Compared to ECG 10/16/2023 16:59:25 HEART RATE HAS INCREASED Electronically Signed On 11-26-2023 13:11:10 CDT by Igor Casillas D.O.
[2023-11-26] MEDS: dilTIAZem HCl INJ 25 MG/5 ML VIAL 20 MG IV PUSH (13:00)
[2023-11-26] MEDS: dilTIAZem HCl INJ 25 MG/5 ML VIAL (13:09)
[2023-11-26] MEDS: SODIUM CHLORIDE 0.9% IV 500 ML 999 ML IV CONT ×2 (13:17→16:19)
[2023-11-26 13:21] LABS: Basophils Percent Auto 0.3 % (0.2-1.2); Eosinophils Percent Auto 0.2 % (0-4.4); Hematocrit 46.2 % (42.0-52.0); Hemoglobin 14.5 g/dL (14.0-18.0); Immature Granulocyte Absolute 0.04 K/mm3 (0.00-0.031); Immature Granulocyte Percent A 0.4 % (0-0.5); Lymphocytes Absolute Auto 1.39 K/mm3 (0.9-3.2); Lymphocytes Percent Auto 13.8 % (18.3-44.2); Mean Corpuscular HGB Conc 31.4 g/dl (32-36); Mean Corpuscular Hemoglobin 32.8 pg (26-34); Mean Corpuscular Volume 104.5 fl (80-100); Mean Platelet Volume 13.3 fl (7.4-10.4); Monocytes Absolute Auto 0.8 K/mm3 (0.1-0.6); Monocytes Percent Auto 7.8 % (2.6-8.5); Neutrophils Absolute Auto 7.8 K/mm3 (1.3-6.7); Neutrophils Percent Auto 77.5 % (45.5-73.1); Platelet Count Result 156 k/mm3 (150-375); Red Blood Count 4.42 M/mm3 (4.6-6.20); Red Cell Distribution Width 14.8 % (11.5-14.5); White Blood Count 10.1 K/mm3 (4.5-10.0)
[2023-11-26 13:33] LABS: Alanine Aminotransferase 33 U/L (6-50); Albumin Level 4.2 g/dL (3.5-5.1); Alkaline Phosphatase 119 U/L (38-126); Anion Gap 14 mmol/L (4-12); Aspartate Amino Transferase 46 U/L (17-59); Bilirubin,Total 1.9 mg/dL (0.2-1.3); Blood Urea Nitrogen 31 mg/dL (9-20); Calcium 9.4 mg/dL (8.4-10.2); Carbon Dioxide 22 mmol/L (22-30); Chloride 107 mmol/L (98-107); Estimated CRCL calculation 38 ml/min; Estimated Glomerular Filt Rate 52; Glucose 91 mg/dL (65-110); Magnesium 2.3 mg/dL (1.6-2.3); Sodium 143 mmol/L (137-145)
[2023-11-26 13:36] LABS: Potassium 4.6 mmol/L (3.4-5.0)
[2023-11-26] MEDS: dilTIAZem 100 MG/100 ML 100 MG/100 ML BAG IV CONT (13:38)
[2023-11-26 13:42] LABS: Troponin I 0.018 ng/mL (0.000-0.034)
[2023-11-26] MEDS: dilTIAZem HCl INJ 25 MG/5 ML VIAL 10 MG IV PUSH (15:21)
--- NOTE | 2023-11-26 15:36 | ED.GENADULT ---
HPI - General Adult General Chief complaint: Unspecified Stated complaint: possible aspiration Time Seen by Provider: 11/26/23 13:03 History of Present Illness HPI narrative: HPI limited by baseline altered mental status This is an 88-year-old male, with history of dementia with baseline A&Ox1, AFib on Eliquis, brought in by EMS from his halfway with concern for aspiration. The patient was previously on a nectar thick diet that was recently stopped. While eating today he appeared to be choking. EMS reported normal vital signs and route. Related Data Home Medications Medication Instructions Recorded Confirmed folic acid 800 mcg tablet 0.8 mg PO DAILY 03/27/23 11/26/23 alprazolam 0.25 mg tablet 0.25 mg PO TID PRN anxiety 10/13/23 11/26/23 mecobalamin (vitamin B12) 1,000 1,000 mcg sublingual DAILY 11/22/23 11/26/23 mcg disintegrating tablet,sublingual Allergies Allergy/AdvReac Type Severity Reaction Status Date / Time No Known Allergies Allergy Verified 11/26/23 17:19 Review of Systems Review of Systems: ROS unobtainable: Yes unobtainable due to mental status PMFSH Past Medical History Medical History Altered mental status Anxiety Atrial fibrillation C. difficile diarrhea Chronic anticoagulation COVID-19 Dementia Fall Heart failure with reduced ejection fraction Echocardiogram in March 2023 showed mildly reduced LV systolic function with an EF estimated 45 to 50% and mild biatrial enlargement. Hypercholesterolemia Hypothyroidism Pulmonary edema Seizure (2009) Surgical History Surgical History History of cataract extraction Family History Family History Father No problems noted. Mother No problems noted. Other Heart disease Social History Social History Social History: Surrogate decision maker: Nighat Henley, spouse. Code Status: Smoking packs per day: 1 Smoking cigarettes per day: 20.0 Years smoked: 23 Smoking pack-years: 23.00 Smoking status: Former smoker Tobacco type: cigarettes Second hand tobacco smoke exposure: No Smoking end date: 11/26/23 Alcohol intake: never Drinks per week: 5 Substance use: never Substance use type: does not use Other substance usage details: small glass of wine with sprite daily Do You Feel Safe in your Home?: Yes Lack of Transportation: No Lack of Food: Never True Current Housing: I Have Housing Concerned About Future Housing: No Difficulty Paying Gas/Electric Bills: No Difficulty Paying for Meds: No Currently Unemployed: No Education: Decline to Answer Difficulty w/ Childcare or Family Care: No Additional living arrangements comments: Lives with spouse. Additional occupation/education comments: Retired from [employer]. Spiritual care concerns: No Exam Narrative: GENERAL: Well-developed, well-nourished, and in no acute distress. HEAD: Normocephalic, atraumatic. EYES: PERRLA and EOMI. CHEST: Clear to auscultation. No respiratory distress. No wheezes rales or rhonchi HEART: Irregularly irregular. No murmur heard. Normal peripheral pulses. ABDOMEN: Soft, nontender, nondistended, normal active bowel sounds. EXTREMITIES: Normal range of motion. No edema. SKIN: Warm, dry, no rash. NEURO: Alert and oriented x1. No focal deficit. Moving all 4 limbs spontaneously PSYCH: Normal mood and affect. Course Course Emergency Course: 15:37 - CBC demonstrates white blood cell count elevation of 10.1 but is otherwise unremarkable. Chemistries demonstrate a mildly elevated BUN of 31 but are otherwise unremarkable. Troponin negative. EKG demonstrates AFib RVR with rate in the 180s. Patient was given a 20 mg IV diltiazem dose wi
[2023-11-26] MEDS: PIPERACILLN/TAZ 3.375GM/NS50ML 3.375 GM/50 ML BAG IVPB (16:13)
--- NOTE | 2023-11-26 17:12 | PC.NURSE ---
This patient, Jamaal Henley, was admitted to IMU Room 232-01 at 16:50. Patient/family oriented to hospital policies and general routines including ID bracelet, bed and alarms, visiting hours, pain management, procedures, bathroom and other care routines, personal items, smoking policy, room service/diet, and visiting hours. Information on how to activate the Rapid Response Team has been discussed. Patient/Family are encouraged to report perceived risks to care and to ask questions if they do not understand what they are told or what they should do.
--- NOTE | 2023-11-26 17:41 | PM.IMHP ---
H&P: HPI History of Present Illness Date/Time: 11/26/23 17:41 Chief Complaint: Chocking Narrative: patient is 88 y/o male a resident of [place] with history of dysphagia, recently he had swallowing study and did well and was taken off thickened liquids and while eating his dinner patient was chocking and brought to the ER upon arrival to the ER patient was in A.fib RVR, in the ER patient was started on Diltiazem drip and his HR is trending down, patient with dementia AxOx1 unable to provider any history or ROS his older son is present in the room. will continue to on dialtiazem drip, once rate is controlled and able to take PO will switch to PO meds, will monitor and further recommendations to follow. Review of Systems Review of Systems: unable to provide ROS. [facility] Past Medical History Medical History Altered mental status Anxiety Atrial fibrillation C. difficile diarrhea Chronic anticoagulation COVID-19 Dementia Fall Heart failure with reduced ejection fraction Echocardiogram in March 2023 showed mildly reduced LV systolic function with an EF estimated 45 to 50% and mild biatrial enlargement. Hypercholesterolemia Hypothyroidism Pulmonary edema Seizure (2009) Surgical History Surgical History History of cataract extraction Family History Family History Father No problems noted. Mother No problems noted. Other Heart disease Social History Social History Social History: Surrogate decision maker: Nighat Henley, spouse. Code Status: Smoking packs per day: 1 Smoking cigarettes per day: 20.0 Years smoked: 23 Smoking pack-years: 23.00 Smoking status: Former smoker Tobacco type: cigarettes Second hand tobacco smoke exposure: No Smoking end date: 11/26/23 Alcohol intake: never Drinks per week: 5 Substance use: never Substance use type: does not use Other substance usage details: small glass of wine with sprite daily Do You Feel Safe in your Home?: Yes Lack of Transportation: No Lack of Food: Never True Current Housing: I Have Housing Concerned About Future Housing: No Difficulty Paying Gas/Electric Bills: No Difficulty Paying for Meds: No Currently Unemployed: No Education: Decline to Answer Difficulty w/ Childcare or Family Care: No Additional living arrangements comments: Lives with spouse. Additional occupation/education comments: Retired from [employer]. Spiritual care concerns: No Meds Home Medications and Allergies Home Medications Medication Instructions Recorded Confirmed Type folic acid 800 mcg tablet 0.8 mg PO DAILY 03/27/23 11/26/23 History levothyroxine 75 mcg tablet 75 mcg PO DAILY #90 tabs 05/31/23 11/26/23 Rx (Synthroid) apixaban 5 mg tablet (Eliquis) 5 mg PO BID #180 tabs 08/13/23 11/26/23 Rx donepezil 10 mg tablet 10 mg PO DAILY #90 tabs 09/19/23 11/26/23 Rx alprazolam 0.25 mg tablet 0.25 mg PO TID PRN anxiety 10/13/23 11/26/23 History levetiracetam 500 mg tablet 500 mg PO BID #180 tabs 11/14/23 11/26/23 Rx atorvastatin 40 mg tablet 40 mg PO DAILY #90 tabs 11/22/23 11/26/23 Rx mecobalamin (vitamin B12) 1,000 1,000 mcg sublingual DAILY 11/22/23 11/26/23 History mcg disintegrating tablet,sublingual Allergies Allergy/AdvReac Type Severity Reaction Status Date / Time No Known Allergies Allergy Verified 11/26/23 17:19 Vital Signs Vital Signs - 24 hr 11/26/23 12:35 11/26/23 13:38 11/26/23 14:08 Temperature Pulse Rate 183 H 170 H 166 H Respiratory Rate 32 H Blood Pressure 141/110 H 126/86 121/90 Pulse Oximetry 99 Oxygen Delivery Room Air 11/26/23 13:58 11/26/23 13:12 11/26/23 13:15 Temperature Pulse Rate 189 H 162 H 165
[2023-11-26] MEDS: METOPROLOL TARTRATE INJ 5 MG/5 ML VIAL IV PUSH (20:05)
[2023-11-26] MEDS: ENOXAPARIN 100 MG/ML SYRINGE 90 MG SUB-Q (20:32)
[2023-11-26] MEDS: dilTIAZem 100 MG/100 ML 100 MG/100 ML BAG 15 MG IV CONT (20:33)
[2023-11-27] VITALS (34 sets, daily range): BP systolic 95–121; BP diastolic 61–84; PULSE 90–160; RESP 16–28; TEMP 36.1–36.9; O2SAT 90–97
[2023-11-27] MEDS: METOPROLOL TARTRATE INJ 5 MG/5 ML VIAL IV PUSH ×7 (00:08→23:03)
[2023-11-27] MEDS: dilTIAZem 100 MG/100 ML 100 MG/100 ML BAG 15 MG IV CONT ×4 (03:05→23:14)
[2023-11-27 03:10] LABS: Basophils Percent Auto 0.2 % (0.2-1.2); Eosinophils Percent Auto 0.1 % (0-4.4); Hematocrit 42.7 % (42.0-52.0); Hemoglobin 13.3 g/dL (14.0-18.0); Immature Granulocyte Absolute 0.05 K/mm3 (0.00-0.031); Immature Granulocyte Percent A 0.4 % (0-0.5); Lymphocytes Absolute Auto 1.53 K/mm3 (0.9-3.2); Mean Corpuscular HGB Conc 31.1 g/dl (32-36); Mean Corpuscular Hemoglobin 32.6 pg (26-34); Mean Corpuscular Volume 104.7 fl (80-100); Mean Platelet Volume 12.6 fl (7.4-10.4); Monocytes Absolute Auto 0.8 K/mm3 (0.1-0.6); Monocytes Percent Auto 6.9 % (2.6-8.5); Neutrophils Absolute Auto 9.4 K/mm3 (1.3-6.7); Neutrophils Percent Auto 79.4 % (45.5-73.1); Platelet Count Result 146 k/mm3 (150-375); Red Blood Count 4.08 M/mm3 (4.6-6.20); Red Cell Distribution Width 14.8 % (11.5-14.5); White Blood Count 11.8 K/mm3 (4.5-10.0)
[2023-11-27 03:24] LABS: Anion Gap 13 mmol/L (4-12); Blood Urea Nitrogen 32 mg/dL (9-20); Calcium 8.9 mg/dL (8.4-10.2); Carbon Dioxide 19 mmol/L (22-30); Chloride 111 mmol/L (98-107); Estimated CRCL calculation 31 ml/min; Estimated Glomerular Filt Rate 41; Glucose 87 mg/dL (65-110); Potassium 4.5 mmol/L (3.4-5.0); Sodium 143 mmol/L (137-145)
--- NOTE | 2023-11-27 03:31 | PC.NURSE ---
Lab unable to obtain full set of blood cultures. Antibiotic infusion delayed. Waiting for another explosive operator to attempt lab draw.
[2023-11-27] MEDS: PIPERACILLIN/TAZ 2.25G/NS 50ML 2.25 GM/50 ML BAG IVPB (05:18)
[2023-11-27 08:16] LABS: Appearance Urine Cloudy (Clear); Bacteria Urine None Seen /hpf; Bilirubin Urine Negative (Negative); Blood Urine Negative (Negative); Color Urine Yellow (Yellow); Glucose Urine UA Negative (Negative); Ketones Urine Negative (Negative); Leukocyte Esterase Ur Negative LEU/UL (Negative); Nitrate Urine Negative (Negative); Protein Urine 1+ mg/dL (Negative); RBC Urine 0-2 /hpf (0-2); Squamous Epithelial Cell Urine None Seen /hpf (Few); Urobilinogen Urine 0.2 mg/dL (<2.0); WBC Urine 0-5 /hpf (0-3)
[2023-11-27 08:24] LABS: Add Urine Microscopic? YES
[2023-11-27 08:26] LABS: Magnesium 2.5 mg/dL (1.6-2.3)
[2023-11-27] MEDS: ENOXAPARIN 100 MG/ML SYRINGE 90 MG SUB-Q ×2 (08:40→20:53)
[2023-11-27] MEDS: cefTRIAXone 2 GM/NS 100 ML 2 GM/100 ML BAG IVPB (12:23)
--- NOTE | 2023-11-27 12:25 | PM.CNCAR ---
Assessment and Plan Assessment and plan (1) Anticoagulant long-term use: Code(s): Z79.01 - assisted (current) use of anticoagulants Status: Acute Assessment and Plan: Continue subcutaneous enoxaparin 1 milligram/kilogram subQ q.12 hours as he is not taking p.o. at this point. (2) Atrial fibrillation with RVR: Code(s): I48.91 - Unspecified atrial fibrillation Status: Acute Assessment and Plan: Continue diltiazem. On IV metoprolol also. Since heart rate still elevated, will give a dose of IV digoxin 0.25 mg IV x1 (3) Heart failure with reduced ejection fraction: Code(s): I50.20 - Unspecified systolic (congestive) heart failure Status: Acute Assessment and Plan: Furosemide 20 mg IV x1 (4) HTN (hypertension), benign: Code(s): I10 - Essential (primary) hypertension Status: Acute Assessment and Plan: On metoprolol and diltiazem for now. Plan Further workup and recommendation and plan depending on the results of family meeting with hospice today History of Present Illness History of Present Illness Consult date/time: 11/27/23 12:25 Requesting physician: Donovan Hurley MD Consult reason: atrial fibrillation Reason For Visit: ASPIRATION PNEUMONIA Narrative: Requesting provider: Dr. Hurley Date of service 11/27/2023 Reason for consultation: Atrial fibrillation History patient is an 88-year-old male who does have a history of atrial fibrillation. He has severe dementia. Essentially nonverbal at this point. Recent admitted for C diff. Also had atrial fibrillation during hospitalization. On anticoagulation. Reportedly was eating yesterday when he started coughing and there was concern about aspiration. In the ER he is found to be in atrial fibrillation with rapid ventricular response. Patient is essentially nonverbal but does open his eyes. Chart review and record reveals that he has had progressive deterioration since his last hospitalization. Consideration of hospice and hospice meeting pending later today. There is no documented chest pain, shortness breath, syncope. Does have swelling. Was started on diltiazem drip as well as scheduled metoprolol his heart rate is still elevated. Review of Systems Review of Systems: All systems reviewed & are unremarkable except as noted in HPI and below Constitutional: Constitutional: Denies chills Eyes: Eyes: Denies photophobia ENT: Reports dysphagia Cardiovascular: Cardiovascular: Reports leg edema Respiratory: Respiratory: Reports cough Gastrointestinal: Gastrointestinal: Denies hematemesis Genitourinary: Genitourinary: Denies hematuria Musculoskeletal: Musculoskeletal: Denies joint swelling Integumentary/Breasts: Skin/Breast: Denies wounds Neurologic: Reports confusion Psychiatric: Psychiatric: Reports confusion Endocrine: Endocrine: Denies excessive sweating Hematologic/Lymphatic: Hematologic/Lymphatic: Denies easy bleeding Allergic/Immunologic: Allergic/Immunologic: Denies lip swelling PMFSH Past Medical History Medical History Altered mental status Anxiety Atrial fibrillation C. difficile diarrhea Chronic anticoagulation COVID-19 Dementia Fall Heart failure with reduced ejection fraction Echocardiogram in March 2023 showed mildly reduced LV systolic function with an EF estimated 45 to 50% and mild biatrial enlargement. Hypercholesterolemia Hypothyroidism Pulmonary edema Seizure (2009) Surgical History Surgical History History of cataract extraction Family History Family History Father No problems noted. Mother No problems noted. Other Heart disease Social History Social History Social History: Clarissa
[2023-11-27] MEDS: DIGOXIN INJ 250 MCG/ML 2 ML AMP (*BKC) IV PUSH (12:42)
--- NOTE | 2023-11-27 18:03 | WPDPN ---
Progress Note: A&P Assessment and Plan (1) Dysphagia: Code(s): R13.10 - Dysphagia, unspecified Status: Acute (2) Seizure: Onset Date: 2009 Code(s): R56.9 - Unspecified convulsions Status: Acute (3) Dementia: Code(s): F03.90 - Unspecified dementia, unspecified severity, without behavioral disturbance, psychotic disturbance, mood disturbance, and anxiety Status: Acute Plan patient is 88 y/o male a resident of [place] with history of dysphagia, recently he had swallowing study and did well and was taken off thickened liquids and while eating his dinner patient was chocking and brought to the ER upon arrival to the ER patient was in A.fib RVR, in the ER patient was started on Diltiazem drip and his HR is trending down, patient with dementia AxOx1 unable to provider any history or ROS his older son is present in the room. will continue to on dialtiazem drip, once rate is controlled and able to take PO will switch to PO meds, will monitor and further recommendations to follow. Interval history 11/27/2023: patient remains in A. Fib RVR, on drip, his present in the room and has decided to consider hospice for the patient will consult social service for hospice care. Subjective Date/time seen: 11/27/23 18:03 Interval history: patient is 88 y/o male a resident of [place] with history of dysphagia, recently he had swallowing study and did well and was taken off thickened liquids and while eating his dinner patient was chocking and brought to the ER upon arrival to the ER patient was in A.fib RVR, in the ER patient was started on Diltiazem drip and his HR is trending down, patient with dementia AxOx1 unable to provider any history or ROS his older son is present in the room. will continue to on dialtiazem drip, once rate is controlled and able to take PO will switch to PO meds, will monitor and further recommendations to follow. Interval history 11/27/2023: patient remains in A. Fib RVR, on drip, his present in the room and has decided to consider hospice for the patient will consult social service for hospice care. Review of Systems Review of Systems: unable to provide ROS. Exam Narrative: General: patient is comfortable but upset HEENT: eye are clear nonicteric HEART: irregularly irregular LUNGS: CTA ABD: BS+ soft nontender EXT: no edema SKIN: no obvious rash NEURO: dementia Objective Data Vital Signs Vital Signs: Vital Signs - 24 hr 11/26/23 19:41 11/26/23 19:49 11/26/23 20:05 Temperature 36.3 C L 36.8 C Pulse Rate 179 H 166 H 170 H Respiratory Rate 26 H 24 H Blood Pressure 114/97 H 120/91 H Pulse Oximetry 92 94 Oxygen Delivery 11/26/23 20:33 11/26/23 20:00 11/26/23 20:00 Temperature Pulse Rate 123 H 163 H Respiratory Rate Blood Pressure Pulse Oximetry Oxygen Delivery Room Air 11/26/23 22:00 11/26/23 22:00 11/26/23 23:19 Temperature 36.8 C 35.9 C L Pulse Rate 118 H 140 H 120 H Respiratory Rate 20 22 H Blood Pressure 96/67 L 116/75 Pulse Oximetry 96 96 Oxygen Delivery 11/27/23 00:08 11/26/23 22:00 11/27/23 00:00 Temperature Pulse Rate 141 H 140 H 143 H Respiratory Rate Blood Pressure Pulse Oximetry Oxygen Delivery 11/27/23 00:00 11/27/23 00:00 11/27/23 02:00 Temperature 36.9 C Pulse Rate 157 H 160 H Respiratory Rate 20 Blood Pressure 121/84 Pulse Oximetry 92 Oxygen Delivery Room Air 11/27/23 02:00 11/27/23 02:00 11/27/23 02:59 Temperature Pulse Rate 135 H 135 H 146 H Respiratory Rate Blood Pressure Pulse Oximetry Oxygen Delivery 11/27/23 03:05 11/27/23 03:05 11/27/23 04:14 Temperature 36.1 C L Pulse Rate 143 H 143 H 120 H Respiratory Rate 22 H Blood Pressure 95/62 L Pulse Oximetry 95 Oxygen Delivery 11/27/23 04:00 11/27/23 04:00 11/27/23 04:00 Temperature Pulse Rate 120 H 143 H Respiratory Rate Blood Pressure Pu
[2023-11-28] VITALS (24 sets, daily range): BP systolic 96–151; BP diastolic 53–96; PULSE 95–147; RESP 20–26; TEMP 36.2–36.6; O2SAT 92–98
[2023-11-28] MEDS: METOPROLOL TARTRATE INJ 5 MG/5 ML VIAL IV PUSH ×5 (03:41→19:53)
[2023-11-28 04:43] LABS: Hematocrit 42.7 % (42.0-52.0); Hemoglobin 13.2 g/dL (14.0-18.0); Mean Corpuscular HGB Conc 30.9 g/dl (32-36); Mean Corpuscular Hemoglobin 32.2 pg (26-34); Mean Corpuscular Volume 104.1 fl (80-100); Mean Platelet Volume 12.4 fl (7.4-10.4); Platelet Count Result 168 k/mm3 (150-375); Red Cell Distribution Width 14.5 % (11.5-14.5); White Blood Count 9.7 K/mm3 (4.5-10.0)
[2023-11-28 04:54] LABS: Anion Gap 11 mmol/L (4-12); Blood Urea Nitrogen 41 mg/dL (9-20); Calcium 8.9 mg/dL (8.4-10.2); Carbon Dioxide 22 mmol/L (22-30); Chloride 115 mmol/L (98-107); Estimated CRCL calculation 24 ml/min; Estimated Glomerular Filt Rate 30; Glucose 83 mg/dL (65-110); Magnesium 2.4 mg/dL (1.6-2.3); Potassium 4.3 mmol/L (3.4-5.0); Sodium 148 mmol/L (137-145)
[2023-11-28] MEDS: dilTIAZem 100 MG/100 ML 100 MG/100 ML BAG 15 MG IV CONT ×3 (06:08→19:49)
--- NOTE | 2023-11-28 09:23 | PM.PNCARD ---
Progress Note: A&P Assessment and Plan (1) Anticoagulant long-term use: Code(s): Z79.01 - long term (current) use of anticoagulants Status: Acute Assessment and Plan: Creatinine is elevated. Creatinine 2.1 today. Will reduce his enoxaparin to 1 milligram/kilograms Q 24 hours (2) Atrial fibrillation with RVR: Code(s): I48.91 - Unspecified atrial fibrillation Status: Acute Assessment and Plan: Continue diltiazem. On IV metoprolol also. (3) Heart failure with reduced ejection fraction: Code(s): I50.20 - Unspecified systolic (congestive) heart failure Status: Acute (4) HTN (hypertension), benign: Code(s): I10 - Essential (primary) hypertension Status: Acute Assessment and Plan: On metoprolol and diltiazem for now. Plan Discussion with today. She and reportedly her sons are all in agreement that hospice is reasonable at this point. There to meet with social Work and if hospice is decided upon, would discontinue IV drips Subjective Date/time seen: 11/28/23 09:23 Interval history: patient is 88 y/o male a resident of [place] with history of dysphagia, recently he had swallowing study and did well and was taken off thickened liquids and while eating his dinner patient was chocking and brought to the ER upon arrival to the ER patient was in A.fib RVR Date of service 11/28/2023: Does awaken still nonverbal. Heart rate still elevated but goes up and. No chest pain Review of Systems Review of Systems: All systems reviewed & are unremarkable except as noted in HPI and below Constitutional: Constitutional: Denies chills and Denies excessive sweating Eyes: Eyes: Denies photophobia ENT: Reports dysphagia and Denies lip swelling Cardiovascular: Cardiovascular: Reports leg edema Respiratory: Respiratory: Reports cough Gastrointestinal: Gastrointestinal: Reports dysphagia and Denies hematemesis Genitourinary: Genitourinary: Denies hematuria Musculoskeletal: Musculoskeletal: Denies joint swelling Integumentary/Breasts: Skin/Breast: Denies wounds Neurologic: Reports confusion Psychiatric: Psychiatric: Reports confusion Endocrine: Endocrine: Denies excessive sweating Hematologic/Lymphatic: Hematologic/Lymphatic: Denies easy bleeding Allergic/Immunologic: Allergic/Immunologic: Denies lip swelling Exam Narrative: Patient does awaken. Not oriented. Appears stated age Const: General: comfortable, no acute distress and confusion Orientation/consciousness: confusion HENMT: Face/Nose/Sinus: Normal nares present Mouth: Yes moist mucous membranes Eyes: General: appearance normal, both eyes and all related structures Sclera: sclerae normal Direct Ophthalmoscopy: No photophobia Neck: Neck: supple Carotids: no bruits Chest: Other: No reproducible chest wall pain to palpation Resp: Effort & Inspection: normal respiratory effort Auscultation: diminished lung sounds Cardio: Rate: tachycardic Rhythm: abnormal rhythm irregularly irregular Heart sounds: Murmur heart sound present GI: Inspection: non-distended Auscultation: normal bowel sounds Skin: General skin exam: normal color Neuro: General: confusion Sensory Exam: normal sensation Extrem: General: edema Psych: Mental Status: mental status grossly normal Affect: normal affect Objective Data Vital Signs Vital Signs: Vital Signs - 24 hr 11/27/23 09:44 11/27/23 10:00 11/27/23 10:09 Temperature 36.7 C Pulse Rate 106 H 136 H Respiratory Rate 24 H Blood Pressure 105/83 105/83 Pulse Oximetry 93 94 Oxygen Delivery Room Air 11/27/23 10:00 11/27/23 12:10 11/27/23 12:25 Temperature Pulse Rate 126 H 142 H 141 H Respiratory Rate Blood Pressure 98/73 L Pulse Oximetry Oxygen Delivery 11/27/23 12:00 11/27/23 12:00 11/27/23 12:00 Temperature 36.7 C Pulse Rate 125 H 113 H Respiratory Rate 16 Blood Pressure 98/73 L Puls
[2023-11-28] MEDS: cefTRIAXone 2 GM/NS 100 ML 2 GM/100 ML BAG IVPB (12:21)
--- NOTE | 2023-11-28 17:12 | WPDPN ---
Progress Note: A&P Assessment and Plan (1) Dysphagia: Code(s): R13.10 - Dysphagia, unspecified Status: Acute (2) Seizure: Onset Date: 2009 Code(s): R56.9 - Unspecified convulsions Status: Acute (3) Dementia: Code(s): F03.90 - Unspecified dementia, unspecified severity, without behavioral disturbance, psychotic disturbance, mood disturbance, and anxiety Status: Acute Plan patient is 88 y/o male a resident of [place] with history of dysphagia, recently he had swallowing study and did well and was taken off thickened liquids and while eating his dinner patient was chocking and brought to the ER upon arrival to the ER patient was in A.fib RVR, in the ER patient was started on Diltiazem drip and his HR is trending down, patient with dementia AxOx1 unable to provider any history or ROS his older son is present in the room. will continue to on dialtiazem drip, once rate is controlled and able to take PO will switch to PO meds, will monitor and further recommendations to follow. Interval history 11/28/2023: patient remains in A. Fib RVR, on drip, today patient was seen his vp geneticsintia CPM, will monitor his present in the room and has decided to consider hospice for the patient will consult social service for hospice care. Subjective Date/time seen: 11/28/23 17:12 Interval history: patient is 88 y/o male a resident of [place] with history of dysphagia, recently he had swallowing study and did well and was taken off thickened liquids and while eating his dinner patient was chocking and brought to the ER upon arrival to the ER patient was in A.fib RVR, in the ER patient was started on Diltiazem drip and his HR is trending down, patient with dementia AxOx1 unable to provider any history or ROS his older son is present in the room. will continue to on dialtiazem drip, once rate is controlled and able to take PO will switch to PO meds, will monitor and further recommendations to follow. Interval history 11/28/2023: patient remains in A. Fib RVR, on drip, today patient was seen his vp genetic, sintia CPM, will monitor his present in the room and has decided to consider hospice for the patient will consult social service for hospice care. Review of Systems Review of Systems: unable to provide ROS. Exam Narrative: General: patient is comfortable but upset HEENT: eye are clear nonicteric HEART: irregularly irregular LUNGS: CTA ABD: BS+ soft nontender EXT: no edema SKIN: no obvious rash NEURO: dementia Objective Data Vital Signs Vital Signs: Vital Signs - 24 hr 11/27/23 18:07 11/27/23 18:00 11/27/23 20:51 Temperature 36.4 C Pulse Rate 120 H 110 H 105 H Respiratory Rate 23 H Blood Pressure 102/68 109/68 Pulse Oximetry 92 Oxygen Delivery 11/27/23 20:52 11/27/23 20:00 11/27/23 20:00 Temperature Pulse Rate 105 H 105 H 90 Respiratory Rate Blood Pressure 109/68 Pulse Oximetry Oxygen Delivery 11/27/23 20:00 11/27/23 22:00 11/27/23 22:00 Temperature 36.4 C Pulse Rate 102 H 102 H Respiratory Rate 23 H Blood Pressure 112/65 Pulse Oximetry 96 Oxygen Delivery Room Air 11/27/23 22:00 11/27/23 23:03 11/27/23 23:14 Temperature Pulse Rate 102 H 123 H 123 H Respiratory Rate Blood Pressure 112/65 112/65 Pulse Oximetry Oxygen Delivery 11/27/23 23:14 11/28/23 00:00 11/28/23 00:00 Temperature 36.5 C Pulse Rate 123 H 114 H 97 Respiratory Rate 23 H Blood Pressure 112/65 101/66 Pulse Oximetry 93 Oxygen Delivery 11/28/23 00:00 11/28/23 02:00 11/28/23 02:00 Temperature 36.6 C Pulse Rate 138 H 127 H Respiratory Rate 22 H Blood Pressure 128/76 Pulse Oximetry 98 Oxygen Delivery Room Air 11/28/23 00:00 11/28/23 02:00 11/28/23 03:41 Temperature Pulse Rate 97 127 H 114 H Respiratory Rate Blood Pressure 101/66 128/76 Pulse Oximetry Oxygen Delivery 11/28/23 0
[2023-11-28] MEDS: ENOXAPARIN 100 MG/ML SYRINGE 90 MG SUB-Q (20:02)
--- NOTE | 2023-11-28 20:19 | PC.NURSE ---
Given that Jamaal and his family are having a meeting with [facility] in the A.M., Jessica Garcia has decided to hold off on labs pending the result of that meeting. If the decision to continue aggressive medical care is made at that meeting, labs will need to be reordered at the physician's discretion at that time.
[2023-11-29] VITALS (20 sets, daily range): BP systolic 94–151; BP diastolic 56–88; PULSE 99–151; RESP 18–25; TEMP 36–36.6; O2SAT 90–96
[2023-11-29] MEDS: METOPROLOL TARTRATE INJ 5 MG/5 ML VIAL IV PUSH ×4 (01:28→12:13)
[2023-11-29] MEDS: dilTIAZem 100 MG/100 ML 100 MG/100 ML BAG 15 MG IV CONT ×2 (02:28→08:42)
[2023-11-29] MEDS: cefTRIAXone 2 GM/NS 100 ML 2 GM/100 ML BAG IVPB (12:13)
[2023-11-29] MEDS: LORazepam INJ (*CRX) 2 MG/ML VIAL IV PUSH (15:00)
--- NOTE | 2023-11-29 15:39 | WPDPN ---
Progress Note: A&P Assessment and Plan (1) Dysphagia: Code(s): R13.10 - Dysphagia, unspecified Status: Acute (2) Seizure: Onset Date: 2009 Code(s): R56.9 - Unspecified convulsions Status: Acute (3) Dementia: Code(s): F03.90 - Unspecified dementia, unspecified severity, without behavioral disturbance, psychotic disturbance, mood disturbance, and anxiety Status: Acute Plan patient is 88 y/o male a resident of [place] with history of dysphagia, recently he had swallowing study and did well and was taken off thickened liquids and while eating his dinner patient was chocking and brought to the ER upon arrival to the ER patient was in A.fib RVR, in the ER patient was started on Diltiazem drip and his HR is trending down, patient with dementia AxOx1 unable to provider any history or ROS his older son is present in the room. will continue to on dialtiazem drip, once rate is controlled and able to take PO will switch to PO meds, will monitor and further recommendations to follow. Interval history 11/29/2023: patient remains in A. Fib RVR, on drip, today patient met with hospice, will stop current treatment and place the patient under comfort care and monitor. Subjective Date/time seen: 11/29/23 15:39 Interval history: patient is 88 y/o male a resident of [place] with history of dysphagia, recently he had swallowing study and did well and was taken off thickened liquids and while eating his dinner patient was chocking and brought to the ER upon arrival to the ER patient was in A.fib RVR, in the ER patient was started on Diltiazem drip and his HR is trending down, patient with dementia AxOx1 unable to provider any history or ROS his older son is present in the room. will continue to on dialtiazem drip, once rate is controlled and able to take PO will switch to PO meds, will monitor and further recommendations to follow. Interval history 11/29/2023: patient remains in A. Fib RVR, on drip, today patient met with hospice, will stop current treatment and place the patient under comfort care and monitor. Review of Systems Review of Systems: unable to provide ROS. Exam Narrative: General: patient is comfortable but upset HEENT: eye are clear nonicteric HEART: irregularly irregular LUNGS: CTA ABD: BS+ soft nontender EXT: no edema SKIN: no obvious rash NEURO: dementia Objective Data Vital Signs Vital Signs: Vital Signs - 24 hr 11/28/23 16:34 11/28/23 17:16 11/28/23 18:00 Temperature 36.3 C L Pulse Rate 145 H 147 H Respiratory Rate 20 Blood Pressure 151/71 H 96/83 L Pulse Oximetry 93 Oxygen Delivery 11/28/23 16:00 11/28/23 16:00 11/28/23 18:00 Temperature Pulse Rate 124 H 118 H Respiratory Rate Blood Pressure Pulse Oximetry Oxygen Delivery Room Air 11/28/23 16:00 11/28/23 18:00 11/28/23 19:37 Temperature 36.2 C L Pulse Rate 111 H 130 H 125 H Respiratory Rate 20 Blood Pressure 151/71 H 96/83 L 125/96 H Pulse Oximetry 96 Oxygen Delivery 11/28/23 18:41 11/28/23 19:49 11/28/23 19:53 Temperature Pulse Rate 128 H 128 H 128 H Respiratory Rate Blood Pressure 125/96 H Pulse Oximetry Oxygen Delivery 11/28/23 22:00 11/28/23 21:23 11/29/23 00:00 Temperature 36.5 C 36.4 C L Pulse Rate 129 H 138 H Respiratory Rate 20 20 Blood Pressure 116/67 123/88 Pulse Oximetry 96 96 96 Oxygen Delivery Room Air 11/29/23 01:28 11/29/23 02:00 11/29/23 02:28 Temperature 36.0 C L Pulse Rate 123 H 110 H 135 H Respiratory Rate 22 H Blood Pressure 106/62 Pulse Oximetry 95 Oxygen Delivery 11/29/23 02:28 11/28/23 20:00 11/28/23 22:00 Temperature Pulse Rate 135 H 104 H 110 H Respiratory Rate Blood Pressure 106/62 Pulse Oximetry Oxygen Delivery 11/29/23 02:00 11/28/23 22:00 11/29/23 00:00 Temperature Pulse Rate 103 H 110 H 132 H Respiratory Rate Blood Pressure Pulse Oximetry
[2023-11-29] MEDS: MORPHINE SULFATE (*CRX) 2 MG/ML INJ IV PUSH (16:28)
[2023-11-30] MEDS: MORPHINE SULFATE (*CRX) 2 MG/ML INJ IV PUSH (04:38)
[2023-11-30 06:22] VITALS: BP 133/104; PULSE 98; RESP 14; TEMP 36.6; O2SAT 94
[2023-11-30 08:22] VITALS: BP 132/90; PULSE 56; RESP 20; TEMP 36.4; O2SAT 98
[2023-11-30] MEDS: LORazepam INJ (*CRX) 2 MG/ML VIAL IV PUSH (10:56)
--- NOTE | 2023-11-30 15:00 | PM.DS ---
DS: Admitting Diagnosis Discharge Date 11/30/2023 Admitting Diagnosis Atrial fibrillation with rapid ventricular rate DS: Discharge Diagnosis Discharge Diagnosis (1) Dysphagia: Code(s): R13.10 - Dysphagia, unspecified Status: Acute (2) Seizure: Onset Date: 2009 Code(s): R56.9 - Unspecified convulsions Status: Acute (3) Dementia: Code(s): F03.90 - Unspecified dementia, unspecified severity, without behavioral disturbance, psychotic disturbance, mood disturbance, and anxiety Status: Acute (4) Atrial fibrillation: Code(s): I48.91 - Unspecified atrial fibrillation Status: Acute Plan patient is 88 y/o male a resident of [place] with history of dysphagia, recently he had swallowing study and did well and was taken off thickened liquids and while eating his dinner patient was chocking and brought to the ER upon arrival to the ER patient was in A.fib RVR, in the ER patient was started on Diltiazem drip and his HR is trending down, patient with dementia AxOx1 unable to provider any history or ROS his older son is present in the room. will continue to on dialtiazem drip, once rate is controlled and able to take PO will switch to PO meds, will monitor and further recommendations to follow. Interval history 11/29/2023: patient remains in A. Fib RVR, on drip, today patient met with hospice, will stop current treatment and place the patient under comfort care and monitor. DS: Summary Hospital Course Hospital Course: Admitted to inpatient service due to atrial fibrillation with rapid ventricular rate and increased confusion. Also had worsened dysphagia. Advanced dementia. And acute kidney injury with creatinine climbing to 2.1 with baseline in the normal range. Heart rate controlled with IV diltiazem drip. Because the patient was unable to eat and had previously expressed wishes about not wanting a feeding tube family wished hospice consultation. He qualified for hospice but not necessarily inpatient. However after discontinuation of the Cardizem drip and comfort care overnight he was intermittently agitated and moaning frequently. Family wishes that he be admitted inpatient hospice service for symptom management. Time Spent with Patient Time attestation: Total time spent providing and/or coordinating discharge services: Exam Narrative: General: Does not follow commands. Intermittently agitated with kicking of legs and intermittent moaning. HEENT: eye are clear nonicteric HEART: irregularly irregular LUNGS: CTA ABD: BS+ soft nontender EXT: no edema SKIN: no obvious rash Musculoskeletal: without gross deformity to visual inspection NEURO: Cranial nerves symmetric to visual inspection DS: Data Data Completed and Pending Labs on day of discharge: Preliminary micro results at discharge 11/27/23 02:56 Blood Culture - Preliminary Blood 11/27/23 05:08 Blood Culture - Preliminary Blood Discharge Plan Discharge Consulting providers: Maritza Rice Discharging Clinician: Jose Stover Patient Disposition: Hospice - Medical Facility Activity: pelvic rest Diet: NPO Stand Alone Forms: General Discharge Information Discharge Medications: Discontinued mecobalamin (vitamin B12) 1,000 mcg tablet,disintegrating 1,000 mcg sublingual DAILY Rx Instructions: place tablet under tongue and allow to dissolve for at least30 secs before swallowing folic acid 800 mcg Tablet 0.8 mg PO DAILY Rx Instructions: takes at 1200 alprazolam 0.25 mg tablet 0.25 mg PO TID PRN (Reason: anxiety) levothyroxine [Synthroid] 75 mcg tablet 75 mcg PO DAILY Qty: 90 3RF Eliquis 5 mg tablet 5 mg PO BID Qty: 180 0RF donepezil 10 mg tablet 10 mg PO DAILY Qty: 90 1RF levetiracetam 500 mg tablet 500 mg PO BID Qty: 180 1RF atorvastatin 40 mg tablet 40 mg PO DAILY Qty: 90 0RF Date of admission: 11/27/23 10:18 Pr
== END 2023-11-30 15:53 | disposition hospice, inpatient (51) | DRG 392 ==
LOC: ANHED 13:25 → ANHIMU 16:10 → ANH3MED 11-29 22:24
PROVIDERS: Internal Medicine; Admitting Provider Family Medicine; Emergency Provider Preventive Medicine Aerospace Medicine; PCP Family Medicine; Visit Provider Internal Medicine
DX: R13.10 Dysphagia, unspecified (principal); I50.22 Chronic systolic (congestive) heart failure; Z51.5 Encounter for palliative care; I11.0 Hypertensive heart disease with heart failure; E78.00 Pure hypercholesterolemia, unspecified; E03.9 Hypothyroidism, unspecified; F03.90 Unspecified dementia, unspecified severity, without behavioral disturbance, psychotic disturbance, mood disturbance, and anxiety; F41.9 Anxiety disorder, unspecified; I48.91 Unspecified atrial fibrillation; R56.9 Unspecified convulsions; Z87.891 Personal history of nicotine dependence; Z79.01 Long term (current) use of anticoagulants; Z86.16 Personal history of COVID-19
CPT/HCPCS: 36415; 71045; 80048; 80053; 81001; 83735; 84484; 85025; 85027; 85055; 87040; 87086; 93005; 96365; 96366; 96367; 96375; 99285; A9270; G0378; J0696; J1160; J1650; J2060; J2270; J2543; J7040

== ENCOUNTER 2023-11-30 15:56 | HOS | payer OTHER, SELFPAY ==
[2023-11-30 17:58] VITALS: PULSE 98; RESP 18
[2023-11-30] MEDS: HYDROmorphone HCL/PF (*CRX) 50 MG in SODIUM CHLORIDE 0.9% IV 95 ML IV CONT (17:58)
--- NOTE | 2023-11-30 18:36 | PM.IMHP ---
H&P: HPI History of Present Illness Date/Time: 11/30/23 18:36 Chief Complaint: Uncontrolled pain and agitation Narrative: Admitted to inpatient service 11/25 due to atrial fibrillation with rapid ventricular rate and increased confusion. Also had worsened dysphagia and pneumonia (presumed aspiration). Advanced dementia. And acute kidney injury with creatinine climbing to 2.1 with baseline in the normal range. Heart rate controlled with IV diltiazem drip. Because the patient was unable to eat and had previously expressed wishes about not wanting a feeding tube family wished hospice consultation. He qualified for hospice but not necessarily inpatient. However after discontinuation of the Cardizem drip and comfort care overnight he was intermittently agitated and moaning frequently. Family wishes that he be admitted inpatient hospice service for symptom management. Review of Systems Review of Systems: ROS unobtainable: Yes unobtainable due to medical condition PMFSH Past Medical History Medical History Altered mental status Anxiety Atrial fibrillation C. difficile diarrhea Chronic anticoagulation COVID-19 Dementia Fall Heart failure with reduced ejection fraction Echocardiogram in March 2023 showed mildly reduced LV systolic function with an EF estimated 45 to 50% and mild biatrial enlargement. Hypercholesterolemia Hypothyroidism Pulmonary edema Seizure (2009) Surgical History Surgical History History of cataract extraction Family History Family History Father No problems noted. Mother No problems noted. Other Heart disease Social History Social History (Updated 11/30/23 @ 18:37 by Jose Stover MD) Social History: Surrogate decision maker: Nighat Henley, spouse. Code Status: DNR Smoking packs per day: 1 Smoking cigarettes per day: 20.0 Years smoked: 23 Smoking pack-years: 23.00 Smoking status: Former smoker Tobacco type: cigarettes Second hand tobacco smoke exposure: No Smoking end date: 11/26/23 Alcohol intake: never Drinks per week: 5 Substance use: never Substance use type: does not use Other substance usage details: small glass of wine with sprite daily Do You Feel Safe in your Home?: Yes Lack of Transportation: No Lack of Food: Never True Current Housing: I Have Housing Concerned About Future Housing: No Difficulty Paying Gas/Electric Bills: No Difficulty Paying for Meds: No Currently Unemployed: No Education: Decline to Answer Difficulty w/ Childcare or Family Care: No Additional living arrangements comments: Lives with spouse. Additional occupation/education comments: Retired from [employer]. Spiritual care concerns: No Meds Home Medications and Allergies Allergies Allergy/AdvReac Type Severity Reaction Status Date / Time No Known Allergies Allergy Verified 11/26/23 17:19 Vital Signs Vital Signs - 24 hr 11/30/23 17:58 Pulse Rate 98 Respiratory Rate 18 Exam Narrative: HEENT: Oral mucosa dry. NECK: No JVD. CHEST: Clear to auscultation. Normal effort. HEART: NL S1/S2, irregular, no audible murmur ABDOMEN: BS hypoactive, soft, nontender, no mass, no bruits EXTREMITIES: No cyanosis, trace ankle edema, no clubbing NEUROLOGIC: CN intact and symmetric to inspection. MUSCULOSKELETAL: No gross deformities to visual inspection. PSYCH: Eyes closed, intermittently moans, rapidly extends legs, and speaks incoherently. Assessment and Plan Assessment and plan (1) Palliative care encounter: Code(s): Z51.5 - Encounter for palliative care Status: Acute Assessment and Plan: Meet inpatient hospice criteria due to requiring continues IV hydromorphone for control of agitation and discomfort.
--- NOTE | 2023-12-01 14:48 | PM.IMPN ---
Progress Note: A&P Assessment and Plan (1) Palliative care encounter: Code(s): Z51.5 - Encounter for palliative care Status: Acute Assessment and Plan: Meet inpatient hospice criteria due to requiring continues IV hydromorphone for control of agitation and discomfort. PRN palliative regimen ordered. (2) Dysphagia: Code(s): R13.10 - Dysphagia, unspecified Status: Acute (3) Atrial fibrillation: Code(s): I48.91 - Unspecified atrial fibrillation Status: Acute (4) Heart failure with reduced ejection fraction: Code(s): I50.20 - Unspecified systolic (congestive) heart failure Status: Acute (5) CKD (chronic kidney disease): Code(s): N18.9 - Chronic kidney disease, unspecified Status: Acute (6) COPD (chronic obstructive pulmonary disease): Code(s): J44.9 - Chronic obstructive pulmonary disease, unspecified Status: Acute (7) Pneumonia: Qualifiers: Aspiration pneumonia type: unspecified Laterality: right Lung location: unspecified part of lung Pneumonia type: aspiration pneumonia Qualified Code(s): J69.0 - Pneumonitis due to inhalation of food and vomit Code(s): J18.9 - Pneumonia, unspecified organism Status: Acute Subjective Date/time seen: 12/01/23 14:48 Interval history: Much more comfortable. No kinking her thrashing about. Tries to talk to family. No p.o. intake. Review of Systems Review of Systems: ROS unobtainable: Yes unobtainable due to medical condition Exam Narrative: HEENT: Oral mucosa dry. NECK: No JVD. CHEST: Clear to auscultation. Normal effort. HEART: NL S1/S2, irregular, no audible murmur ABDOMEN: BS hypoactive, soft, nontender, no mass, no bruits EXTREMITIES: No cyanosis, trace ankle edema, no clubbing NEUROLOGIC: CN intact and symmetric to inspection. MUSCULOSKELETAL: No gross deformities to visual inspection. PSYCH: Eyes open. Tries to talk intermittently but unintelligible. Objective Data Vital Signs Vital Signs: Vital Signs - 24 hr 11/30/23 17:58 11/30/23 20:00 Pulse Rate 98 Respiratory Rate 18 Oxygen Delivery Room Air Meds/Results Medications: Active Medications Generic Name Dose Route Start Last Admin Trade Name Freq PRN Reason Stop Dose Admin Acetaminophen 650 mg 11/30/23 16:50 Acetaminophen 650 Mg Suppository RECTAL Q4H PRN Fever Artificial Tears 1 drop 11/30/23 16:50 Artificial Tears Ophth Soln 15 Ml Bottle EACH EYE Q12H PRN Dry Eye(s) Bisacodyl 10 mg 11/30/23 16:50 Bisacodyl 10 Mg Suppository RECTAL DAILY PRN Constipation Diazepam 5 mg 11/30/23 16:55 Diazepam Inj (*Crx) 10 Mg/2 Ml Syringe IV PUSH Q4H PRN ANXIETY/RESTLESSNESS Glycopyrrolate 0.1 mg 11/30/23 16:50 Glycopyrrolate Inj (*Sp) 0.2 Mg/Ml Vial IV PUSH Q4H PRN secretions Hydromorphone HCl 0.5 mg 11/30/23 16:54 Hydromorphone Hcl Inj (*Crx) 1 Mg/Ml Syr IV PUSH Q2H PRN Pain/ SHORTNESS OF BREATH Hydromorphone HCl 50 mg/ 100 mls @ 0.5 mls/hr 11/30/23 18:00 11/30/23 17:58 Sodium Chloride IV CONT 0.25 mg/hr .Q24H NERISSA 0.5 mls/hr Administration 0.25 MG/HR Prochlorperazine Edisylate 10 mg 11/30/23 16:50 Prochlorperazine Edisylate 10 Mg/2 Ml Vial IV PUSH Q4H PRN Nausea And Vomiting
[2023-12-01 17:26] VITALS: PULSE 110; RESP 18
[2023-12-01] MEDS: HYDROmorphone HCL/PF (*CRX) 50 MG in SODIUM CHLORIDE 0.9% IV 95 ML IV CONT (17:26)
[2023-12-01] MEDS: diazePAM INJ (*CRX) 10 MG/2 ML SYRINGE 5 MG IV PUSH (17:56)
[2023-12-02 08:00] VITALS: PULSE 110; O2SAT 94
[2023-12-02] MEDS: diazePAM INJ (*CRX) 10 MG/2 ML SYRINGE 5 MG IV PUSH (09:41)
[2023-12-02 18:00] VITALS: PULSE 85; RESP 18
[2023-12-02] MEDS: HYDROmorphone HCL/PF (*CRX) 50 MG in SODIUM CHLORIDE 0.9% IV 95 ML IV CONT (18:00)
--- NOTE | 2023-12-02 18:47 | P.PNIM_ITS ---
Progress Note: A&P Assessment and Plan (1) Palliative care encounter: Code(s): Z51.5 - Encounter for palliative care Status: Acute Assessment and Plan: * Meet inpatient hospice criteria due to requiring continues IV hydromorphone for control of agitation and discomfort. * PRN palliative regimen ordered. Subjective Date/time seen: 12/02/23 18:47 Interval history: Remains comfortable. No PO intake. Review of Systems Review of Systems: ROS unobtainable: Yes unobtainable due to medical condition Exam Narrative: HEENT: Oral mucosa dry. NECK: No JVD. CHEST: Clear to auscultation. Normal effort. HEART: NL S1/S2, irregular, no audible murmur ABDOMEN: BS hypoactive, soft, nontender, no mass, no bruits EXTREMITIES: No cyanosis, trace ankle edema, no clubbing NEUROLOGIC: CN intact and symmetric to inspection. MUSCULOSKELETAL: No gross deformities to visual inspection. PSYCH: Opens eyes to touch or voice. Objective Data Vital Signs Vital Signs: Vital Signs - 24 hr 12/01/23 20:00 12/02/23 08:00 12/02/23 18:00 Pulse Rate 110 H 85 Respiratory Rate 18 Pulse Oximetry 94 Oxygen Delivery Room Air Room Air 12/02/23 18:00 Pulse Rate 85 Respiratory Rate 18 Pulse Oximetry Oxygen Delivery Intake/Output Intake/Output: Intake & Output 11/29/23 11/30/23 12/01/23 12/02/23 23:59 23:59 23:59 23:59 Intake Total 11.7 12.3 Output Total 900 Balance 11.7 -887.7 Meds/Results Medications: Active Medications Generic Name Dose Route Start Last Admin Trade Name Freq PRN Reason Stop Dose Admin Acetaminophen 650 mg 11/30/23 16:50 Acetaminophen 650 Mg Suppository RECTAL Q4H PRN Fever Artificial Tears 1 drop 11/30/23 16:50 Artificial Tears Ophth Soln 15 Ml Bottle EACH EYE Q12H PRN Dry Eye(s) Bisacodyl 10 mg 11/30/23 16:50 Bisacodyl 10 Mg Suppository RECTAL DAILY PRN Constipation Diazepam 5 mg 11/30/23 16:55 12/02/23 09:41 Diazepam Inj (*Crx) 10 Mg/2 Ml Syringe IV PUSH 5 mg Q4H PRN Administration ANXIETY/RESTLESSNESS Glycopyrrolate 0.1 mg 11/30/23 16:50 Glycopyrrolate Inj (*Sp) 0.2 Mg/Ml Vial IV PUSH Q4H PRN secretions Hydromorphone HCl 0.5 mg 11/30/23 16:54 Hydromorphone Hcl Inj (*Crx) 1 Mg/Ml Syr IV PUSH Q2H PRN Pain/ SHORTNESS OF BREATH Hydromorphone HCl 50 mg/ 100 mls @ 0.5 mls/hr 11/30/23 18:00 12/02/23 18:00 Sodium Chloride IV CONT 0.25 mg/hr .Q24H NERISSA 0.5 mls/hr Administration 0.25 MG/HR Prochlorperazine Edisylate 10 mg 11/30/23 16:50 Prochlorperazine Edisylate 10 Mg/2 Ml Vial IV PUSH Q4H PRN Nausea And Vomiting
[2023-12-03] MEDS: GLYCOPYRROLATE INJ (*SP) 0.2 MG/ML VIAL 0.1 MG IV PUSH (08:52)
--- NOTE | 2023-12-03 17:10 | PM.IMPN ---
Progress Note: A&P Assessment and Plan (1) Palliative care encounter: Code(s): Z51.5 - Encounter for palliative care Status: Acute Assessment and Plan: Meet inpatient hospice criteria due to requiring continues IV hydromorphone for control of agitation and discomfort. PRN palliative regimen ordered. 12/02 PM: increase hydromorphone to 0.5 mg/hr, d/w spouse at bedside. (2) Dysphagia: Code(s): R13.10 - Dysphagia, unspecified Status: Acute (3) Dementia: Code(s): F03.90 - Unspecified dementia, unspecified severity, without behavioral disturbance, psychotic disturbance, mood disturbance, and anxiety Status: Acute Subjective Date/time seen: 12/03/23 17:10 Interval history: Intermittently kicking covers today. Some intermittent moaning and grimacing this pm. Review of Systems Review of Systems: ROS unobtainable: Yes unobtainable due to medical condition Exam Narrative: HEENT: Oral mucosa dry. NECK: No JVD. CHEST: Clear to auscultation. Normal effort. HEART: NL S1/S2, irregular, no audible murmur ABDOMEN: BS hypoactive, soft, nontender, no mass, no bruits EXTREMITIES: No cyanosis, trace ankle edema, no clubbing NEUROLOGIC: CN intact and symmetric to inspection. MUSCULOSKELETAL: No gross deformities to visual inspection. PSYCH: Unintelligible vocalization to touch or voice. Objective Data Vital Signs Vital Signs: Vital Signs - 24 hr 12/02/23 18:00 12/02/23 18:00 12/02/23 20:00 Pulse Rate 85 85 Respiratory Rate 18 18 Oxygen Delivery Room Air 12/03/23 08:52 Pulse Rate Respiratory Rate Oxygen Delivery Room Air Intake/Output Intake/Output: Intake & Output 11/30/23 12/01/23 12/02/23 12/03/23 23:59 23:59 23:59 23:59 Intake Total 11.7 12.3 Output Total 900 500 Balance 11.7 -887.7 -500 Meds/Results Medications: Active Medications Generic Name Dose Route Start Last Admin Trade Name Freq PRN Reason Stop Dose Admin Acetaminophen 650 mg 11/30/23 16:50 Acetaminophen 650 Mg Suppository RECTAL Q4H PRN Fever Artificial Tears 1 drop 11/30/23 16:50 Artificial Tears Ophth Soln 15 Ml Bottle EACH EYE Q12H PRN Dry Eye(s) Bisacodyl 10 mg 11/30/23 16:50 Bisacodyl 10 Mg Suppository RECTAL DAILY PRN Constipation Diazepam 5 mg 11/30/23 16:55 12/02/23 09:41 Diazepam Inj (*Crx) 10 Mg/2 Ml Syringe IV PUSH 5 mg Q4H PRN Administration ANXIETY/RESTLESSNESS Glycopyrrolate 0.1 mg 11/30/23 16:50 12/03/23 08:52 Glycopyrrolate Inj (*Sp) 0.2 Mg/Ml Vial IV PUSH 0.1 mg Q4H PRN Administration secretions Hydromorphone HCl 0.5 mg 11/30/23 16:54 Hydromorphone Hcl Inj (*Crx) 1 Mg/Ml Syr IV PUSH Q2H PRN Pain/ SHORTNESS OF BREATH Hydromorphone HCl 50 mg/ 100 mls @ 0.5 mls/hr 11/30/23 18:00 12/02/23 18:00 Sodium Chloride IV CONT 0.25 mg/hr .Q24H NERISSA 0.5 mls/hr Administration 0.25 MG/HR Prochlorperazine Edisylate 10 mg 11/30/23 16:50 Prochlorperazine Edisylate 10 Mg/2 Ml Vial IV PUSH Q4H PRN Nausea And Vomiting
[2023-12-03 17:16] VITALS: PULSE 72; RESP 16
[2023-12-03 17:20] VITALS: PULSE 72; RESP 16
[2023-12-03] MEDS: HYDROmorphone HCL/PF (*CRX) 50 MG in SODIUM CHLORIDE 0.9% IV 95 ML IV CONT (17:20)
[2023-12-04] MEDS: HYDROmorphone HCL INJ (*CRX) 1 MG/ML SYR 0.5 MG IV PUSH (15:03)
[2023-12-04] MEDS: diazePAM INJ (*CRX) 10 MG/2 ML SYRINGE 5 MG IV PUSH (15:03)
--- NOTE | 2023-12-04 16:24 | PM.IMPN ---
Progress Note: A&P Assessment and Plan (1) Palliative care encounter: Code(s): Z51.5 - Encounter for palliative care Status: Acute Assessment and Plan: Meet inpatient hospice criteria due to requiring continues IV hydromorphone for control of agitation and discomfort. PRN palliative regimen ordered. 12/02 PM: increase hydromorphone to 0.5 mg/hr, d/w spouse at bedside. (2) Dysphagia: Code(s): R13.10 - Dysphagia, unspecified Status: Acute (3) Dementia: Code(s): F03.90 - Unspecified dementia, unspecified severity, without behavioral disturbance, psychotic disturbance, mood disturbance, and anxiety Status: Acute Subjective Date/time seen: 12/04/23 16:24 Interval history: Remained comfortable since dose increase 12/02. Review of Systems Review of Systems: ROS unobtainable: Yes unobtainable due to medical condition Exam Narrative: HEENT: Oral mucosa dry. NECK: No JVD. CHEST: Clear to auscultation. Normal effort. HEART: NL S1/S2, irregular, no audible murmur ABDOMEN: BS hypoactive, soft, nontender, no mass, no bruits EXTREMITIES: No cyanosis, trace ankle edema, no clubbing NEUROLOGIC: CN intact and symmetric to inspection. MUSCULOSKELETAL: No gross deformities to visual inspection. PSYCH: Unintelligible vocalization to touch or voice. Objective Data Vital Signs Vital Signs: Vital Signs - 24 hr 12/03/23 17:16 12/03/23 17:20 12/03/23 20:00 Pulse Rate 72 72 Respiratory Rate 16 16 Oxygen Delivery Room Air 12/04/23 08:00 Pulse Rate Respiratory Rate Oxygen Delivery Room Air Intake/Output Intake/Output: Intake & Output 12/01/23 12/02/23 12/03/23 12/04/23 23:59 23:59 23:59 23:59 Intake Total 11.7 12.3 11.2 Output Total 900 500 Balance 11.7 -887.7 -488.8 Meds/Results Medications: Active Medications Generic Name Dose Route Start Last Admin Trade Name Freq PRN Reason Stop Dose Admin Acetaminophen 650 mg 11/30/23 16:50 Acetaminophen 650 Mg Suppository RECTAL Q4H PRN Fever Artificial Tears 1 drop 11/30/23 16:50 Artificial Tears Ophth Soln 15 Ml Bottle EACH EYE Q12H PRN Dry Eye(s) Bisacodyl 10 mg 11/30/23 16:50 Bisacodyl 10 Mg Suppository RECTAL DAILY PRN Constipation Diazepam 5 mg 11/30/23 16:55 12/04/23 15:03 Diazepam Inj (*Crx) 10 Mg/2 Ml Syringe IV PUSH 5 mg Q4H PRN Administration ANXIETY/RESTLESSNESS Glycopyrrolate 0.1 mg 11/30/23 16:50 12/03/23 08:52 Glycopyrrolate Inj (*Sp) 0.2 Mg/Ml Vial IV PUSH 0.1 mg Q4H PRN Administration secretions Hydromorphone HCl 0.5 mg 11/30/23 16:54 12/04/23 15:03 Hydromorphone Hcl Inj (*Crx) 1 Mg/Ml Syr IV PUSH 0.5 mg Q2H PRN Administration Pain/ SHORTNESS OF BREATH Hydromorphone HCl 50 mg/ 100 mls @ 1 mls/hr 11/30/23 18:00 12/03/23 17:20 Sodium Chloride IV CONT 0.5 mg/hr .Q24H NERISSA 1 mls/hr Administration 0.5 MG/HR Prochlorperazine Edisylate 10 mg 11/30/23 16:50 Prochlorperazine Edisylate 10 Mg/2 Ml Vial IV PUSH Q4H PRN Nausea And Vomiting
[2023-12-04 17:31] VITALS: PULSE 106; RESP 18
[2023-12-04] MEDS: HYDROmorphone HCL/PF (*CRX) 50 MG in SODIUM CHLORIDE 0.9% IV 95 ML IV CONT (17:31)
[2023-12-04] MEDS: GLYCOPYRROLATE INJ (*SP) 0.2 MG/ML VIAL 0.1 MG IV PUSH (22:51)
[2023-12-05] MEDS: GLYCOPYRROLATE INJ (*SP) 0.2 MG/ML VIAL 0.1 MG IV PUSH ×2 (06:27→11:40)
[2023-12-05] MEDS: HYDROmorphone HCL INJ (*CRX) 1 MG/ML SYR 0.5 MG IV PUSH (08:57)
[2023-12-05] MEDS: diazePAM INJ (*CRX) 10 MG/2 ML SYRINGE 5 MG IV PUSH (08:58)
[2023-12-05 17:03] VITALS: PULSE 120; RESP 40
[2023-12-05] MEDS: HYDROmorphone HCL/PF (*CRX) 50 MG in SODIUM CHLORIDE 0.9% IV 95 ML IV CONT (17:03)
--- NOTE | 2023-12-05 17:08 | PM.IMPN ---
Progress Note: A&P Assessment and Plan (1) Palliative care encounter: Code(s): Z51.5 - Encounter for palliative care Status: Acute Assessment and Plan: Meet inpatient hospice criteria due to requiring continues IV hydromorphone for control of agitation and discomfort. PRN palliative regimen ordered. 12/02 PM: increased hydromorphone to 0.5 mg/hr, d/w spouse at bedside. 12/04: increased hydromorphone to 1 mg/hr, d/w son at bedside likelihood of aspiration pneumonia, accelerated progression, physiologic responses to fever and metabolic acidosis, secretion pooling and rattling. (2) Dysphagia: Code(s): R13.10 - Dysphagia, unspecified Status: Acute (3) Dementia: Code(s): F03.90 - Unspecified dementia, unspecified severity, without behavioral disturbance, psychotic disturbance, mood disturbance, and anxiety Status: Acute Subjective Date/time seen: 12/05/23 17:08 Interval history: Increased discomfort and fever today. More tachypneic. Increased rattling in chest. Review of Systems Review of Systems: ROS unobtainable: Yes unobtainable due to medical condition Exam Narrative: HEENT: Oral mucosa dry. NECK: No JVD. CHEST: Scattered coarse crackles anteriorly, tachypneic. HEART: NL S1/S2, irregular, no audible murmur ABDOMEN: BS hypoactive, soft, nontender, no mass, no bruits EXTREMITIES: No cyanosis, trace ankle edema, no clubbing NEUROLOGIC: CN intact and symmetric to inspection. MUSCULOSKELETAL: No gross deformities to visual inspection. PSYCH: No response to verbal or tactile stimuli. Objective Data Vital Signs Vital Signs: Vital Signs - 24 hr 12/04/23 17:31 12/04/23 17:31 12/04/23 21:30 Pulse Rate 106 H 106 H Respiratory Rate 18 18 Oxygen Delivery Room Air 12/05/23 08:00 Pulse Rate Respiratory Rate Oxygen Delivery Room Air Intake/Output Intake/Output: Intake & Output 12/02/23 12/03/23 12/04/23 12/05/23 23:59 23:59 23:59 23:59 Intake Total 12.3 11.2 24.2 Output Total 900 500 Balance -887.7 -488.8 24.2 Meds/Results Medications: Active Medications Generic Name Dose Route Start Last Admin Trade Name Freq PRN Reason Stop Dose Admin Acetaminophen 650 mg 11/30/23 16:50 Acetaminophen 650 Mg Suppository RECTAL Q4H PRN Fever Artificial Tears 1 drop 11/30/23 16:50 Artificial Tears Ophth Soln 15 Ml Bottle EACH EYE Q12H PRN Dry Eye(s) Bisacodyl 10 mg 11/30/23 16:50 Bisacodyl 10 Mg Suppository RECTAL DAILY PRN Constipation Diazepam 5 mg 11/30/23 16:55 12/05/23 08:58 Diazepam Inj (*Crx) 10 Mg/2 Ml Syringe IV PUSH 5 mg Q4H PRN Administration ANXIETY/RESTLESSNESS Glycopyrrolate 0.1 mg 11/30/23 16:50 12/05/23 11:40 Glycopyrrolate Inj (*Sp) 0.2 Mg/Ml Vial IV PUSH 0.1 mg Q4H PRN Administration secretions Hydromorphone HCl 1 mg 12/05/23 14:22 Hydromorphone Hcl Inj (*Crx) 1 Mg/Ml Syr IV PUSH Q2H PRN Pain/ SHORTNESS OF BREATH Hydromorphone HCl 50 mg/ 100 mls @ 2 mls/hr 11/30/23 18:00 12/04/23 17:31 Sodium Chloride IV CONT 0.5 mg/hr .Q24H NERISSA 1 mls/hr Administration 1 MG/HR Prochlorperazine Edisylate 10 mg 11/30/23 16:50 Prochlorperazine Edisylate 10 Mg/2 Ml Vial IV PUSH Q4H PRN Nausea And Vomiting
[2023-12-05 20:11] VITALS: BP 74/40; PULSE 41; RESP 36; O2SAT 68
--- NOTE | 2023-12-05 20:35 | PC.NURSE ---
Called to room by pt's son stating that he thought patient had passed. Observed pt to have no pulse and taking no breaths. Called charge nurse Estephanie to bedside to verify.
--- NOTE | 2023-12-06 16:14 | PM.DDS ---
Discharge Summary Date and Time Date of : 12/05/23 Time of : 20:35 Provider Pronounced By: 2 RNs Name of First RN That Pronounced: Estephanie Sinclair Name of Second RN That Pronounced: Rosemary Charlton Probable Cause of Probable Cause of : aspiration pneumonia due to dysphagia due to dementia Summary Hospital Course: Admitted to inpatient hospice service for symptom mangement. Medications titrated to comfort. Mr. Henley peacefully. Additional Data Confirmation of as documented by pronouncing clinician: Pupillary Reflex, Palpable Pulses, Response to Stimuli and Heart Tones Name of Provider Notified: Ck Muñoz Provider Notified: 21:20 Family Requests Autopsy: No Service Delivery Management Consultant Notified: Yes Date [facility] Notified of : 12/05/23 Time [facility] Notified of : 21:10
== END 2023-12-05 20:35 | disposition expired | DRG 951 ==
PROVIDERS: Admitting Provider Internal Medicine; PCP Family Medicine; Visit Provider Internal Medicine
DX: Z51.5 Encounter for palliative care (principal); J69.0 Pneumonitis due to inhalation of food and vomit; N17.9 Acute kidney failure, unspecified; I50.22 Chronic systolic (congestive) heart failure; J44.9 Chronic obstructive pulmonary disease, unspecified; R13.10 Dysphagia, unspecified; N18.9 Chronic kidney disease, unspecified; F03.90 Unspecified dementia, unspecified severity, without behavioral disturbance, psychotic disturbance, mood disturbance, and anxiety; I48.91 Unspecified atrial fibrillation; E03.9 Hypothyroidism, unspecified; E78.00 Pure hypercholesterolemia, unspecified; Z66 Do not resuscitate; Z79.01 Long term (current) use of anticoagulants; Z86.16 Personal history of COVID-19; Z87.891 Personal history of nicotine dependence; Z98.42 Cataract extraction status, left eye; Z98.41 Cataract extraction status, right eye
CPT/HCPCS: A9270; J1170; J1596; J3360